=== PATIENT | male | born 1975 ===

== ENCOUNTER 2020-11-25 10:12 | Inpatient (IN) ==
--- NOTE | 2020-11-25 10:37 | Emergency Department Note ---
History of Present Illness General Chief complaint: Shortness of Breath/Dyspnea Stated complaint: SOB, COVID + Time Seen by Provider: 11/25/20 10:19 Source: patient History of Present Illness Provider complaint: Shortness of breath Onset (ago): day(s) Location: chest Severity: severe Pain Consistency: + intermittent Quality: + other (O2 saturation 83 at the present) Relieved By: + other (Oxygen) Associated symptoms: + cough, + fever/chills, + malaise and + shortness of breath; no chest pain, no headaches and no nausea/vomiting This is a 45-year-old male with a history of bladder cancer and recently diagnosed with COVID-19 presenting with shortness of breath. The patient has been short of breath for about 2 days. He was diagnosed with COVID-19 ap proximately 4 days ago. He developed a fever at that time. [facility] he was found to have an O2 saturation of 83% on room air and was subsequently sent here. His symptoms did improve with oxygen. He denies any associated chest discomfort or pain. He does state that he has had several months of swelling to the left leg without pain. He states that he did have an ultrasound of that leg at one point and was negative for DVT. He has never had a clot in his long as far as he knows. He does have a cough, loss of taste or smell, chills and diarrhea. He denies any abdominal pain or vomiting. 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 Home Medications Medication Instructions Recorded Confirmed Type acetaminophen-codeine 3 tab PO TID PRN 11/19/20 11/25/20 History [Tylenol-Codeine #3] acidophilus-pectin, citrus 2 cap PO BID 11/19/20 11/25/20 History [Acidophilus Probiotic] cholecalciferol (vitamin D3) 25 mcg PO DAILY 11/19/20 11/25/20 History [Vitamin D3] docusate sodium 250 mg PO DAILY 11/19/20 11/25/20 History ibuprofen 400 mg PO Q4H PRN 11/19/20 11/25/20 History loperamide [Imodium] See Rx Instructions .ROUTE 11/19/20 11/25/20 History .COMPLEX PRN MDD 16MG/DAY morphine 100 mg PO Q12H 11/19/20 11/25/20 History nitrofurantoin monohyd/m-cryst 100 mg PO DAILY 11/19/20 11/25/20 History [Macrobid] piperacillin-tazobactam [Zosyn] 4.5 g IV QID 11/19/20 11/25/20 History tamsulosin [Flomax] 0.4 mg PO HS 11/19/20 11/25/20 History zinc sulfate 220 mg PO BID 11/19/20 11/25/20 History Allergies Allergy/AdvReac Type Severity Reaction Status Date / Time No Known Allergies Allergy Verified 11/25/20 10:30 Past Med/Surg History Medical History (Updated 11/25/20 @ 13:52 by Sha Han MD) Bladder tumor UTI (urinary tract infection) Surgical History (Updated 11/25/20 @ 13:50 by Sha Han MD) History of bladder surgery Neobladder anastomosis Social History Smoking Status: Former smoker Feels Safe at Home: Yes Review of Systems See HPI for pertinent positives & negatives. and A total of 10 systems reviewed and were otherwise negative Physical Exam Vital Signs Vital Signs - 24 hr 11/25/20 10:05 11/25/20 10:30 11/25/20 10:46 Temperature 36.9 C Temperature Source Oral Pulse Rate 108 H 112 H 97 H Pulse Rate from SpO2 Sensor Pulse Rhythm Regular Respiratory Rate 26 H 22 26 H Respiratory Pattern Rapid/Shallow Blood Pressure 113/63 115/69 Blood Pressure Mean 79 75 Blood Pressure Position Sitting Pulse Oximetry 87 L 95 98 Oxygen Delivery Method Room Air Nasal Cannula Nasal Cannula Oxygen Flow Rate 4 Sepsis Recent Fever Within 48 Hours Yes Sepsis New/Unexplained Change in Mental Status No Sepsis Action Taken by Nursing Physician Notified Oxygen Flow Rate - Titration 4 Pulse Oximetry Post Tiitration 96 11/25/20 11:00 11/25/20 11:30 11/25/20 12:00 Temperature Temperature Source Pulse Rate 101 H 92 H 90 Pulse Rate from SpO2 Sensor 90 Pulse Rhythm Respiratory Rate 21 19 20 Respiratory Pattern Blood Pressure 100/65 107/67 110/69 Blood Pressure Mean 75 74 77 Blood Pressure Position Pulse Oximetry 97 97 98 Oxygen Delivery Method Nasal Cannula Oxygen Flow Rate 4 Sepsis Recent Fever Within 48 Hours Sepsis New/Unexplained Change in Mental Status Sepsis Action Taken by Nursing Oxygen Flow Rate - Titration Pulse Oximetry Post Tiitration 11/25/20 12:01 11/25/20 12:45 11/25/20 12:46 Temperature Temperature Source Pulse Rate 89 91 H 93 H Pulse Rate from SpO2 Sensor 89 93 H Pulse Rhythm Respiratory Rate 16 21 24 Respiratory Pattern Blood Pressure 115/72 Blood Pressure Mean 80 Blood Pressure Position Pulse Oximetry 97 92 97 Oxygen Delivery Method Oxygen Flow Rate Sepsis Recent Fever Within 48 Hours Sepsis New/Unexplained Change in Mental Status Sepsis Action Taken by Nursing Oxygen Flow Rate - Titration Pulse Oximetry Post Tiitration 11/25/20 13:00 11/25/20 13:01 11/25/20 13:30 Temperature Temperature Source Pulse Rate 95 H 88 89 Pulse Rate from SpO2 Sensor 95 H 88 88 Pulse Rhythm Respiratory Rate 23 23 19 Respiratory Pattern Blood Pressure 121/80 105/74 Blood Pressure Mean 88 89 Blood Pressure Position Pulse Oximetry 96 98 99 Oxygen Delivery Method Oxygen Flow Rate Sepsis Recent Fever Within 48 Hours Sepsis New/Unexplained Change in Mental Status Sepsis Action Taken by Nursing Oxygen Flow Rate - Titration Pulse Oximetry Post Tiitration 11/25/20 13:31 Temperature Temperature Source Pulse Rate 88 Pulse Rate from SpO2 Sensor 88 Pulse Rhythm Respiratory Rate 17 Respiratory Pattern Blood Pressure Blood Pressure Mean Blood Pressure Position Pulse Oximetry 99 Oxygen Delivery Method Oxygen Flow Rate Sepsis Recent Fever Within 48 Hours Sepsis New/Unexplained Change in Mental Status Sepsis Action Taken by Nursing Oxygen Flow Rate - Titration Pulse Oximetry Post Tiitration Constitutional: Vital signs reviewed. Hypoxemic. O2 saturation in the high 80s on room air. Improved to 94 on 2 L. Eyes: Pupils are equal round reactive to light. Conjunctiva are noninjected. ENT: Pharynx is clear without erythema or exudate. Mucous membranes are moist. Neck supple without meningeal signs. Respiratory: Clear to auscultation bilaterally. Breath sounds are equal bilaterally. Cardiovascular: Tachycardic. Heart rate 108 GI: Soft, nondistended and nontender. Bowel sounds are present. Musculoskeletal: No peripheral edema. No lower extremity tenderness. Integumentary: No cyanosis. or jaundice. Neurological: The patient is awake and alert. No focal deficits. Psychiatric: Normal affect. Not anxious appearing. Course Administered Medications Discontinued Medications Ioversol (Optiray 320 125ml) 120 ml IV ONCE ONE Stop: 11/25/20 12:24 Last Admin: 11/25/20 12:23 Dose: 120 ml Documented by: [id number] Medical Decision Making Differential Diagnosis DVT, PE, COVID-19, pneumonia, anemia Medical Records Attestation: I reviewed the patient's medical records. I did perform a limited focused review of portions of the patient's old chart on the electronic medical record. The patient was seen here November 19 for UTI symptoms. He was on IV Zosyn at the present. A CT scan revealed a colovesical fistula. The case was discussed with urology and recommendations were made for surgical repair at [facility]. He did have a venous Doppler of the left leg on September 23, 2020 which showed no evidence of DVT. Home Medications Current Medication List: was personally reviewed by me Laboratory Data Attestation: I reviewed the patient's lab results. Result diagrams: 11/25/20 10:54 11/25/20 10:54 Lab Results 11/25/20 11/25/20 11/25/20 Range/Units 10:54 10:54 10:54 WBC 11.77 H (4.8-10.8) K/uL RBC 3.37 L (4.7-6.1) M/uL Hgb 8.3 L (14.0-18.0) g/dL Hct 26.7 L (42-52) % MCV 79.2 L (80-100) fL MCH 24.6 L (25-34) pg MCHC 31.1 L (32-36) g/dL RDW Std Deviation 48.8 H (36.4-46.3) fL RDW Coeff of Chris 16.7 H (11.5-14.5) % Plt Count 499 H (130-400) K/uL MPV 8.2 (7.4-10.4) fL Immature Gran % (Auto) 0.3 % Neut % (Auto) 90.4 % Lymph % (Auto) 6.2 % [place] % (Auto) 2.7 % Eos % (Auto) 0.3 % Baso % (Auto) 0.1 % Neut # (Auto) 10.63 H (1.4-6.5) K/uL Lymph # (Auto) 0.73 L (1.2-3.4) K/uL [place] # (Auto) 0.32 (0.11-0.59) K/uL Eos # (Auto) 0.04 (0-0.5) K/uL Baso # (Auto) 0.01 (0-0.2) K/uL Immature Gran # (Auto) 0.04 H (0.00-0.02) K/uL PT 11.4 (9.0-12.0) Seconds INR 1.1 (0.9-1.1) APTT 38.6 H (21.0-31.0) Seconds PTT Ratio 1.4 D-Dimer 1300 H* (0-500) ug/L FEU Sodium 136 (136-145) mmol/L Potassium 3.4 L (3.5-5.1) mmol/L Chloride 108 H (98-107) mmol/L Carbon Dioxide 21 (21-32) mmol/L Anion Gap 8.0 (3-11) BUN 11 (7-18) mg/dl Creatinine 1.28 (0.6-1.4) mg/dl Est Cr Clr Drug Dosing 64.5 ml/min Est GFR ( Amer) 78.4 Est GFR (Non-Af Amer) 67.6 BUN/Creatinine Ratio 8.8 L (10-20) Glucose 104 H (70-99) mg/dl Calcium 8.5 (8.5-10.1) mg/dl Total Bilirubin 0.3 (0.2-1) mg/dl AST 49 H (15-37) U/L ALT 35 (12-78) U/L Alkaline Phosphatase 139 H (45-117) U/L Troponin I < 0.015 (0-0.045) ng/ml C-Reactive Protein 13.60 H (0-0.29) mg/dl Total Protein 6.3 L (6.4-8.2) gm/dl Albumin 1.8 L (3.4-5.0) gm/dl Globulin 4.5 H (2.5-4.0) gm/dl Albumin/Globulin Ratio 0.4 L (0.9-2) Imaging Data Radiologist's Impression: CT ANGIOGRAM OF THE CHEST CLINICAL HISTORY: Shortness of breath POSSIBLE PULMONARY EMBOLISM COMPARISON STUDY: Chest x-ray dated 11/19/2020 TECHNIQUE: Following the IV administration of 120 mL of Optiray-320, CT angiogram of the thorax was performed from the thoracic inlet to the lung bases utilizing the pulmonary embolus protocol. Images are reviewed in the axial, sagittal, and coronal planes. IV contrast was administered without complication. MIP imaging was performed. A dose lowering technique was utilized adhering to the principles of ALARA. CT DOSE: 327.60 mGy.cm FINDINGS: There is suspected hepatic steatosis. There are borderline enlarged mediastinal and hilar lymph nodes. There was no evidence of thoracic aortic dilatation. There were no pulmonary artery filling defects to indicate acute pulmonary embolism. No pleural effusions are visualized. There are extensive multifocal groundglass pulmonary opacities. The findings are indicative of a multifocal pneumonia. The findings are consistent with although not specific for Covid 19 pneumonia T9 sclerotic densities while nonspecific likely represent bone islands. IMPRESSION: 1. No evidence of acute pulmonary embolism 2. Multifocal groundglass pulmonary opacities. The findings are suspicious for Covid 19 pneumonia. ACT 112: Negative or not required by law. Electronically signed by: Felice Cruz M.D. 11/25/2020 12:47 PM Dictated: 11/25/20 1243 Transcribed: 11/25/20 1243 ECG Data Attestation: I personally reviewed and interpreted this ECG as follows: Indication: + SOB/dyspnea Rate (beats per minute): 108 Rhythm: + sinus tachycardia ECG Intervals/blocks: + Normal QT ECG ST segments: no ST elevation ECG Findings: no PVCs MDM Narrative I did evaluate the patient as noted above. The patient has a history of bladder cancer and COVID-19. He is presenting with hypoxemia. He was placed on supplemental oxygen using nasal cannula. IV access was established. I did place an order for continuous cardiac monitoring. The monitor showed sinus tachycardia at a rate of 110 bpm. I did order and personally review the malena ent's 12-lead EKG as described above. He has sinus tachycardia without any evidence of acute ischemia. I did order a urine analysis. I did order and review the patient's blood work as noted in the electronic medical record. His white count is 11.7. He has anemia with a hemoglobin of 8.3. His last hemoglobin was 8.8. His D-dimer is 1300. Potassium is 3.4. Troponin is negative. C-reactive protein is 13.6. Given his history of bladder cancer as well as recent diagnosis of COVID-19 with hypoxemia I was concerned about pulmonary embolism. I did order a CT angiogram of the chest. I did review the images myself as well as the radiology report as described above. There is no evidence of pulmonary embolism but the patient does have multifocal pneumonia. The patient was informed of his test results. He is able to maintain his O2 saturations on 4 L of nasal cannula. I did discuss case with the hospitalist and case management rn. He was given Decadron 6 mg IV. Impression & Plan Hypoxemia, Anemia, Pneumonia due to 2019 novel coronavirus Discharge Plan Visit Data Chief Complaint: Shortness of Breath/Dyspnea Stated Complaint: SOB, COVID + ED Provider: Zeyad Gallegos Discharge Problem: Hypoxemia, Anemia, Pneumonia due to 2019 novel coronavirus Patient Disposition: Being Evaluated by Hospitalist
[2020-11-25 11:29] LABS: Hematocrit (blood only) 26.7 % (42-52); Hemoglobin 8.3 g/dL (14.0-18.0); Mean Corpuscular Hemoglobin 24.6 pg (25-34); Mean Corpuscular Hgb Conc 31.1 g/dL (32-36); Mean Corpuscular Volume 79.2 fL (80-100); Mean Platelet Volume 8.2 fL (7.4-10.4); Platelet Count 499 K/uL (130-400); RDW Coefficient of Variation 16.7 % (11.5-14.5); RDW Standard Deviation 48.8 fL (36.4-46.3); Red Blood Count 3.37 M/uL (4.7-6.1); White Blood Count 11.77 K/uL (4.8-10.8)
[2020-11-25 11:40] LABS: INR 1.1 (0.9-1.1); Partial Thromboplastin Ratio 1.4; Partial Thromboplastin Time 38.6 Seconds (21.0-31.0); Prothrombin Time 11.4 Seconds (9.0-12.0)
[2020-11-25 11:41] LABS: D Dimer 1300 ug/L FEU (0-500)
[2020-11-25 11:48] LABS: Alanine Aminotransferase 35 U/L (12-78); Albumin Level 1.8 gm/dl (3.4-5.0); Aspartate Aminotransferase 49 U/L (15-37); BUN Creatinine Ratio 8.8 (10-20); Blood Urea Nitrogen 11 mg/dl (7-18); Calcium 8.5 mg/dl (8.5-10.1); Carbon Dioxide 21 mmol/L (21-32); Chloride 108 mmol/L (98-107); Creatinine Clr Calc Pharmacy 64.5 ml/min; Est GFR (African American) 78.4; Est GFR (Non-African American) 67.6; Glucose 104 mg/dl (70-99); Potassium 3.4 mmol/L (3.5-5.1); Sodium 136 mmol/L (136-145)
[2020-11-25 11:51] LABS: Basophils # (auto) 0.01 K/uL (0-0.2); Basophils % (auto) 0.1 %; Eosinophils # (auto) 0.04 K/uL (0-0.5); Eosinophils % (auto) 0.3 %; Immature Granulocytes # (auto) 0.04 K/uL (0.00-0.02); Immature Granulocytes % (auto) 0.3 %; Lymphocytes # (auto) 0.73 K/uL (1.2-3.4); Lymphocytes % (auto) 6.2 %; Monocytes # (auto) 0.32 K/uL (0.11-0.59); Monocytes % (auto) 2.7 %; Neutrophils # (auto) 10.63 K/uL (1.4-6.5); Neutrophils % (auto) 90.4 %
[2020-11-25 11:52] LABS: Albumin Globulin Ratio 0.4 (0.9-2); Alkaline Phosphatase 139 U/L (45-117); Bilirubin,Total 0.3 mg/dl (0.2-1); Globulin 4.5 gm/dl (2.5-4.0); Total Protein 6.3 gm/dl (6.4-8.2); Troponin I < 0.015 ng/ml (0-0.045)
[2020-11-25] MEDS ORDERED: OPTIRAY 320 125ml IV ONE (12:23)
--- NOTE | 2020-11-25 12:48 | CT Scan Report ---
CT ANGIOGRAM OF THE CHEST CLINICAL HISTORY: Shortness of breath POSSIBLE PULMONARY EMBOLISM COMPARISON STUDY: Chest x-ray dated 11/19/2020 TECHNIQUE: Following the IV administration of 120 mL of Optiray-320, CT angiogram of the thorax was p erformed from the thoracic inlet to the lung bases utilizing the pulmonary embolus protocol. Images a re reviewed in the axial, sagittal, and coronal planes. IV contrast was administered without complica tion. MIP imaging was performed. A dose lowering technique was utilized adhering to the principles o f ALARA. CT DOSE: 327.60 mGy.cm FINDINGS: There is suspected hepatic steatosis. There are borderline enlarged mediastinal and hilar lymph nodes. There was no evidence of thoracic aortic dilatation. There were no pulmonary artery filling defects to indicate acute pulmonary embolism. No pleural effusions are visualized. There are extensive multifocal groundglass pulmonary opacities. The findings are indicative of a mult ifocal pneumonia. The findings are consistent with although not specific for Covid 19 pneumonia T9 sclerotic densities while nonspecific likely represent bone islands. IMPRESSION: 1. No evidence of acute pulmonary embolism 2. Multifocal groundglass pulmonary opacities. The findings are suspicious for Covid 19 pneumonia. ACT 112: Negative or not required by law. Electronically signed by: Felice Cruz M.D. 11/25/2020 12:47 PM
[2020-11-25] MEDS ORDERED: DEXAMETHASONE SOD INJ 10 MG/ML VIAL IV ONE (12:51)
--- NOTE | 2020-11-25 13:41 | History & Physical Report ---
Date of Service November 25, 2020 Assessment & Plan (1) Pneumonia due to COVID-19 virus: Dexamethasone 6mg IV daily COVID isolation precautions (2) Hypoxia: Aim O2 sats > 94% (3) Williams-vesical fistula: Recently seen on imaging from 11/19. Will consult urology to question need for ongoing antibiotics and straight catheterization vs. da silva given neobladder. Doubtful he would be able to have surgery in setting of COVID-19 diagnosis. (4) UTI (urinary tract infection): Follow up blood cultures Diagnosed with pseudomonas and Enterococcus faecalis on November 02 - awaiting fax from [facility] for sensitivities. Started Zosyn on November 12 - I suspect that can be discontinued given ongoing duration however in setting of colovesicular fistula will consult uro logy for advice regarding this. (5) Bladder tumor: s/p neobladder formation - patient unclear when but suspect 2019 (6) Hydronephrosis, right: Consult urology as above. Unclear if acute or chronic (present on imaging from 11/19), suspect from neobladder formation. (7) Microcytic anemia: Iron studies with CBC in AM. (8) Constipation: Avoid constipation with docusate as per home med. (9) DVT prophylaxis: SCDs. Chemical prophylaxis deferred pending urology review with hematuria and stability of microcytic anemia. History of Present Illness Primary Care Provider: LIN Rudolph Harjinder Corley is a 45-year-old male who presents to the ER from [facility] due to worsening shortness of breath and hypoxia. He was recently diagnosed on with COVID-19 on November 21, [address] abdo/pelvis imaging on Nov 19 showed some bibasal viral pneumonia changes although CXR was relatively unremarkable. He reports fever, chills, shortness of breath, diarrhea (chronic) and fatigue. He denies any nasal congestion, nausea/vomiting, headache, myalgias, abdominal or chest pain. 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 He has a history of bladder cancer with s/p neobladder formation performed at [facility]. The patient reports developing urinary retention since January requiring intermittent catheterization and he has been performing straight caths approximately x3/day s then. He denies being seen by a urologist after this diagnosis but is somewhat confused at this time. Both the [facility] and patient report a history of recurrent multi-resistant UTIs but I am unclear on what symptoms he was having at the time of these diagnoses. He was on cefepime when here for an ER visit for an unrelated matter in September and has recently been on Zosyn 4.5g QID since November 13 after a urine culture on November 02 grew pseudomonas aeruginosa and enterococcus faecalis. 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 His care was discussed with urology at that time but decided on discharge with close follow up with his urologist in [place]. The patient is unaware of any upcoming appointment for this. In the ER CTA was concerning for multifocal ground glass opacities and subsequent SARS-COV-2 testing was positive. He was referred to medicine for ongoing admission and ongoing management of COVID-19 pneumonia with hypoxia. Allergies Allergy/AdvReac Type Severity Reaction Status Date / Time No Known Allergies Allergy Verified 11/25/20 10:30 Home Medications Medication Instructions Recorded Confirmed Type acetaminophen-codeine 3 tab PO TID PRN 11/19/20 11/25/20 History [Tylenol-Codeine #3] acidophilus-pectin, citrus 2 cap PO BID 11/19/20 11/25/20 History [Acidophilus Probiotic] cholecalciferol (vitamin D3) 25 mcg PO DAILY 11/19/20 11/25/20 History [Vitamin D3] docusate sodium 250 mg PO DAILY 11/19/20 11/25/20 History ibuprofen 400 mg PO Q4H PRN 11/19/20 11/25/20 History loperamide [Imodium] See Rx Instructions .ROUTE 11/19/20 11/25/20 History .COMPLEX PRN MDD 16MG/DAY morphine 100 mg PO Q12H 11/19/20 11/25/20 History nitrofurantoin monohyd/m-cryst 100 mg PO DAILY 11/19/20 11/25/20 History [Macrobid] piperacillin-tazobactam [Zosyn] 4.5 g IV QID 11/19/20 11/25/20 History tamsulosin [Flomax] 0.4 mg PO HS 11/19/20 11/25/20 History zinc sulfate 220 mg PO BID 11/19/20 11/25/20 History Past Med/Surg History Medical History (Updated 11/26/20 @ 08:18 by Sha Han MD) Bladder tumor UTI (urinary tract infection) Surgical History (Updated 11/25/20 @ 13:50 by Sha Han MD) History of bladder surgery Neobladder anastomosis Social History Smoking Status: Former smoker Second Hand Exposure: No; Do You Dip or Chew Tobacco: No; Tobacco Cessation Education Requested by Patient: No Hx Alcohol Use: No Hx Substance Use: No Preferred Language: Greek Communication Ability: Effective Film Reproducer Required: No Beliefs That Will Affect Care: None Current Living Situation: Other Current Living Situation Comment: patient is inmate at [facility] Other Information That Helps Us Care for You: No Feels Safe at Home: Yes Safety Concerns: Feels Safe At This Time Assistive Devices: None Review of Systems Review of Systems: All systems reviewed & are unremarkable except as noted in HPI & below Physical Exam Constitutional: well developed and well nourished; no acute distress Eyes: PERRL, conjunctivae normal, anicteric sclerae Respiratory: normal respiratory effort and able to speak in complete sentences; no respiratory distress, no labored breathing and no cough Auscult ation: + rhonchi (posteriorly); no diminished lung sounds, no crackles and no wheezes Cardiovascular: RRR, no murmur, no edema Gastrointestinal (Abdomen): normal bowel sounds, soft, nontender, no hepatosplenomegaly Musculoskeletal: no cyanosis or clubbing, extremities motor strength 5/5 Skin: no rashes, warm and dry Neurologic: moves all extremities and awake; not confused Psychiatric: A+Ox3, euthymic affect Genitourinary: no CVA tenderness Results & Data Results & Data ([facility]) Vital Signs (Past 12 Hours) Vital Signs Temp Pulse Resp BP Pulse Ox 11/25/20 13:31 88 17 99 11/25/20 13:30 89 19 105/74 99 11/25/20 13:01 88 23 98 11/25/20 13:00 95 H 23 121/80 96 11/25/20 12:46 93 H 24 97 11/25/20 12:45 91 H 21 115/72 92 01/10/21 12:01 89 16 97 11/25/20 12:00 90 20 110/69 98 11/25/20 11:30 92 H 19 107/67 97 11/25/20 11:00 101 H 21 100/65 97 11/25/20 10:46 97 H 26 H 98 11/25/20 10:30 112 H 22 115/69 95 11/25/20 10:05 36.9 C 108 H 26 H 113/[address] ANGIOGRAM OF THE CHEST IMPRESSION: 1. No evidence of acute pulmonary embolism 2. Multifocal groundglass pulmonary opacities. The findings are suspicious for Covid 19 pneumonia. Medications Administered ER medications given: Dexamethasone 6mg IV ECG Indication: SOB/dyspnea Rate (beats per minute): 108 Rhythm: sinus tachycardia Findings: + other (poor R wave progression) Change: no significant change Code Status & VTE Plan VTE Prophylaxis Plan VTE Prophylaxis will be ordered: Yes PG Care Time/CCT Total # of Minutes Spent Total Time Spent with Patient: Total time spent is greater than 50% in coordination of care (as documented) at patient's floor/unit and/or counseling patient: Coding Level of Care Code 46280 Initial Inpt Care Lvl 3 Diagnoses Pneumonia due to COVID-19 virus U07.1; J12.82 Hypoxia R09.02 Williams-vesical fistula N32.1 UTI (urinary tract infection) N39.0 Bladder tumor D49.4 Hydronephrosis, right N13.30 Microcytic anemia D50.9 Constipation K59.00 DVT prophylaxis Z29.9
[2020-11-25 15:03] LABS: Ferritin 774.9 ng/ml (8-388)
[2020-11-25] MEDS ORDERED: DEXAMETHASONE SOD INJ 10 MG/ML VIAL ONE (15:32)
[2020-11-25] MEDS ORDERED: PIPERACILLIN/TAZOBACTAM 4.5 GM in DEXTROSE 5% 100 ML IV SCH (15:49)
[2020-11-25] MEDS ORDERED: ONDANSETRON INJ 2 MG/ML 2 ML VIAL IV PRN (15:49)
[2020-11-25] MEDS ORDERED: ACETAMINOPHEN 325 MG TAB PO PRN (15:49)
[2020-11-25] MEDS ORDERED: POLYETHYLENE (MIRALAX) 17 GM PACK PO PRN (15:49)
[2020-11-25] MEDS ORDERED: PIPERACILL/TAZOBAC CONSULT ACTIVE PRN (15:49)
[2020-11-25] MEDS ORDERED: ALUMINUM/MAGNESIUM SUSP 30 ML UDC PO PRN (15:49)
[2020-11-25] MEDS ORDERED: PIPERACILLIN/TAZOBACTAM 3.375 GM in DEXTROSE 5% 100 ML IV ONE (16:15)
[2020-11-25] MEDS: ADVANCED PROBIOTIC 1250 MG CAPSULE PO SCH (17:01)
--- NOTE | 2020-11-25 17:03 | Electrocardiogram Report ---
Test Reason : Blood Pressure : / mmHG Vent. Rate : 108 BPM Atrial Rate : 108 BPM P-R Int : 138 ms QRS Dur : 074 ms QT Int : 328 ms P-R-T Axes : 032 -07 018 degrees QTc Int : 439 ms Poor data quality, interpretation may be adversely affected Sinus tachycardia Possible Left atrial enlargement Poor R wave progression, consider anterior [place] vs. lead placement vs. LVH Abnormal ECG No previous ECGs available Confirmed by Balwinder Mata ([id number]) on 11/25/2020 5:02:31 PM Referred By: Klaudia SCI Confirmed By:Pete Mata
[2020-11-25] MEDS: TAMSULOSIN HCL 0.4 MG CAP PO SCH (21:03)
[2020-11-25] MEDS: ZINC SULFATE 220 MG CAPSULE PO SCH (21:03)
[2020-11-25] MEDS: PIPERACILLIN/TAZOBACTAM 3.375 GM in DEXTROSE 5% 100 ML IV SCH (21:03)
[2020-11-25] MEDS: MoRPHine SULFATE CR 100 MG TABCR PO SCH (22:13)
[2020-11-26] MEDS: PIPERACILLIN/TAZOBACTAM 3.375 GM in DEXTROSE 5% 100 ML IV SCH ×3 (05:36→21:38)
[2020-11-26 06:30] LABS: Basophils # (auto) 0.01 K/uL (0-0.2); Basophils % (auto) 0.1 %; Hematocrit (blood only) 29.6 % (42-52); Hemoglobin 9.2 g/dL (14.0-18.0); Immature Granulocytes # (auto) 0.04 K/uL (0.00-0.02); Immature Granulocytes % (auto) 0.4 %; Lymphocytes # (auto) 0.88 K/uL (1.2-3.4); Lymphocytes % (auto) 8.6 %; Mean Corpuscular Hemoglobin 24.7 pg (25-34); Mean Corpuscular Hgb Conc 31.1 g/dL (32-36); Mean Corpuscular Volume 79.6 fL (80-100); Mean Platelet Volume 8.3 fL (7.4-10.4); Monocytes # (auto) 0.36 K/uL (0.11-0.59); Monocytes % (auto) 3.5 %; Neutrophils # (auto) 8.93 K/uL (1.4-6.5); Neutrophils % (auto) 87.4 %; Platelet Count 572 K/uL (130-400); RDW Coefficient of Variation 16.8 % (11.5-14.5); RDW Standard Deviation 49.2 fL (36.4-46.3); Red Blood Count 3.72 M/uL (4.7-6.1); White Blood Count 10.22 K/uL (4.8-10.8)
[2020-11-26 07:04] LABS: BUN Creatinine Ratio 13.6 (10-20); Creatinine Clr Calc Pharmacy 71.2 ml/min; Est GFR (African American) 88.3; Est GFR (Non-African American) 76.2; Potassium 4.1 mmol/L (3.5-5.1)
--- NOTE | 2020-11-26 08:02 | Hospitalist Progress Note ---
Date of Service November 26, 2020 Assessment & Plan (1) Pneumonia due to COVID-19 virus: Pt with actue hypoxic respiratory failure, acute changes on CTA consistent with covid pneumonia, will start remdesivir and is on decadron, support with oxygen at this time (2) UTI (urinary tract infection): Pt with a history of colovesicular fistulae and previous infection with MDR pseudomonas and enterococcus diagonsed in october, (3) [place]-vesical fistula: history of bladder cancer diagnosed in 2018 s/p left nephrectomy, cystectomy/prostatectomy with neobladder,performed in [facility] (2018). CT scan 11/19/20 cannot exclude fistulae, urology consult recommend da silva, continue antibiotics and eventual return to [facility] for surgical correction (4) Bladder tumor: CT abd pelvis 11/20/20 MPRESSION: 1. Rectosigmoid wall thickening with a fistula communicating with the patient's neobladder. There is stool present within the neobladder 2. Moderate right-sided hydronephrosis and hydroureter. Distal ureteral narrowing at the level of the ureteral neobladder anastomosis (5) Microcytic anemia: pt hgb is 9.2, remains microcytic, iron low and sat low, will give iron (6) Hydronephrosis, right: given stable renal function urology is not inclined to intervene at this point, will have a da silva to eliminate obstructive uropathy especially with colonic debris in the bladder (7) Constipation: initiate cathartic (8) DVT prophylaxis: lovenox Admission and Anticipated Discharge Date Admission Date: November 25, 2020 Subjective 45-year-old male with a history of bladder cancer and recently diagnosed with COVID-19 presenting with shortness of breath. The patient has been short of breath for about 2 days. He was diagnosed with COVID-19 approximately 4 days ago. He developed a fever at that time. Today at the residential where he resides he was found to have an O2 saturation of 83% on room air and was subsequently sent here. His symptoms did improve with oxygen. He denies any associated chest discomfort or pain. He does state that he has had several months of swelling to the left leg without pain. He states that he did have an ultrasound of that leg at one point and was negative for DVT. He has never had a clot in his long as far as he knows. He does have a cough, loss of taste or smell, chills and diarrhea. He denies any abdominal pain or vomiting. 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 Results & Data Results & Data ([facility]) Vital Signs (Past 12 Hours) Vital Signs Temp Pulse Resp BP Pulse Ox 11/26/20 07:24 97.7 F 91 H 20 118/72 98 11/25/20 23:07 98.1 F 92 H 16 110/69 97 PG Care Time/CCT Total # of Minutes Spent Total Time Spent with Patient: Total time spent is greater than 50% in coordination of care (as documented) at patient's floor/unit and/or counseling patient: Coding Level of Care Code 43788 Subseq Hosp Care Lvl 3 Diagnoses Pneumonia due to COVID-19 virus U07.1; J12.82 UTI (urinary tract infection) N39.0 [place]-vesical fistula N32.1 Bladder tumor D49.4 Microcytic anemia D50.9 Hydronephrosis, right N13.30 Constipation K59.00 DVT prophylaxis Z29.9
--- NOTE | 2020-11-26 08:04 | Urology Consultation ---
Date of Consultation November 26, 2020 Assessment & Plan (1) [place]-vesical fistula: (2) Hydronephrosis, right: (3) UTI (urinary tract infection): (4) Bladder tumor: 45 year-old male patient, with multiple comorbidities, admitted with shortness of breath and hypoxia secondary to diagnosed COVID-19 infection and UTI, found to have right-sided hydroureteronephrosis and colovesicular/neobladder fistula. -Patient with complex history including bladder cancer status post cystectomy, left nephrectomy, prostatectomy, and neobladder formation. -Plan of care reviewed with Dr. Malik. -Patient afebrile. -CT reviewed - there does appear to be a colovesicular/neobladder fistula with large amount of air and debris within neobladder. -Labs reviewed, creatinine and white count stable. -Recommend da silva catheter to allow max bladder drainage, irrigate PRN. -Continue supportive care and antibiotic therapy for complicated UTI, blood cultures pending. -Will ultimately need reconstructive urology/colorectal surgery evaluation for colovesical fistula repair at tertiary center. -Transfer acutely if febrile, decline in kidney function, or acute changes in clinical status. -Will continue to follow peripherally. Thank you for allowing us to participate in the acute care of Mr. Corley. Please contact us with additional questions, concerns or changes in patient status. History of Present Illness Reason for Consultation: right hydronephrosis, neobladder, colovesicular fistula Attending Physician: Zeyad Bowie MD History of Present Illness 45 year-old male patient, with history of bladder cancer diagnosed in 2018 s/p left nephrectomy, cystectomy/prostatectomy with neobladder, UTI, anemia, consti pation and recently diagnosed COVID-19, presented to the hospital from [facility] due to worsening shortness of breath and hypoxia. Patient diagnosed with COVID-19 on November 21, 2020. Patient admitted 11/25/20 to hospital service. Past medical and surgical history reviewed. Per chart review, does have history of prostatectomy, left nephrectomy, cystectomy with neobladder performed in [facility] (2018). Denies history of radiation but notes he did have chemotherapy prior to surgery. Patient was also recently seen and evaluated November 19, 2020 at [facility] for UTI symptoms. He was started on 10 day course of Zosyn 12/29/20 prior to this. Records reveal patient had urine culture 11/02 with multi-drug resistant Pseudomonas and Enterococcus Faecalis. Urology consulted for right-sided hydronephrosis, neobladder, and colovesicular fistula. Chart review: Afebrile. Wbc 10.22 Hgb 9.2 Creatinine 1.16 Urine culture 11/02 not available for review. Urine culture 11/19 with three types of organisms present, all moderate counts. Blood cultures 11/25 pending. Patient currently on IV Zosyn. Imaging: CT abd/pelvis with IV contrast 11/19/20 - IMPRESSION: 1. Multifocal groundglass consolidation at the lung bases is typical for an infectious pneumonitis 2. Postoperative change is consistent with cystectomy and prostatectomy with neobladder formation. There has also been left nephrectomy. 3. There is significant wall thickening and hyperemia involving the rectosigmoid colon with surrounding inflammation. There are thick-walled and inflamed loops of adjacent small bowel in the pelvis. The neobladder also appears thick walled, but is not well delineated. Some of these findings may be treatment-related if there has been a history of pelvic radiation. Correlate clinically for evidence of an infectious process. 4. The neobladder is partially decompressed end is in close proximity to the adjacent bowel loops. Fistula formation would be impossible to exclude between the neobladder and the adjacent small bowel and/or the colon. 5. Moderate constipation. No bowel obstruction is seen. 6. There is moderate to severe right hydroureteronephrosis, likely related to the inflammatory process in the pelvis. 7. Hepatomegaly and hepatic steatosis. 8. Additional findings in report. CT abd/pelvis without contrast 11/20/20 - IMPRESSION: 1. Rectosigmoid wall thickening with a fistula communicating with the patient's neobladder. There is stool present within the neobladder. 2. Moderate right-sided hydronephrosis and hydroureter. Distal ureteral narrowing at the level of the ureteral neobladder anastomosis. Patient examined, guards at bedside. Patient reports he is feeling better since hospital admission. Breathing has improved overall, remains on oxygen via nasal cannula. In regards to urination status, he reports his urine has been brown in color. Does have occasional dysuria and hematuria. Does have history of CIC but states he is able to also void spontaneously. Reports he has had da silva catheters in the past but states they clog very easily. Denies frequency/urgency. Denies bladder pain or pressure. Denies flank pain. Denies fevers or chills. Has been eating a regular diet without nausea or vomiting. Currently on IV antibiotic therapy, Zoxyn. No known pertinent family history. Overall, he has had some clinical improvement. Denies additional urologic concerns today. Allergies Allergy/AdvReac Type Severity Reaction Status Date / Time No Known Allergies Allergy Verified 11/25/20 10:30 Home Medications Medication Instructions Recorded Confirmed Type acetaminophen-codeine 3 tab PO TID PRN 11/19/20 11/25/20 History [Tylenol-Codeine #3] acidophilus-pectin, citrus 2 cap PO BID 11/19/20 11/25/20 History [Acidophilus Probiotic] cholecalciferol (vitamin D3) 25 mcg PO DAILY 11/19/20 11/25/20 History [Vitamin D3] docusate sodium 250 mg PO DAILY 11/19/20 11/25/20 History ibuprofen 400 mg PO Q4H PRN 11/19/20 11/25/20 History loperamide [Imodium] See Rx Instructions .ROUTE 11/19/20 11/25/20 History .COMPLEX PRN MDD 16MG/DAY morphine 100 mg PO Q12H 11/19/20 11/25/20 History nitrofurantoin monohyd/m-cryst 100 mg PO DAILY 11/19/20 11/25/20 History [Macrobid] piperacillin-tazobactam [Zosyn] 4.5 g IV QID 11/19/20 11/25/20 History tamsulosin [Flomax] 0.4 mg PO HS 11/19/20 11/25/20 History zinc sulfate 220 mg PO BID 11/19/20 11/25/20 History Patient History Medical History Bladder tumor UTI (urinary tract infection) Surgical History History of bladder surgery Neobladder anastomosis Social History Smoking Status: Former smoker Second Hand Exposure: No; Do You Dip or Chew Tobacco: No; Tobacco Cessation Education Requested by Patient: No Hx Alcohol Use: No Hx Substance Use: No Preferred Language: Mongolian Communication Ability: Effective Van Driver Helper Required: No Beliefs That Will Affect Care: None Current Living Situation: Other Current Living Situation Comment: patient is inmate at [facility] Other Information That Helps Us Care for You: No Feels Safe at Home: Yes Safety Concerns: Feels Safe At This Time Assistive Devices: None Review of Systems Constitutional: as per Subjective / HPI; no fever and no chills Eyes: no problem reported Ear, Nose, Mouth, Throat: no dizziness Respiratory: as per Subjective / HPI Cardiovascular: no chest pain Gastrointestinal: as per Subjective / HPI Genitourinary: + as per Subjective / HPI Musculoskeletal: as per Subjective / HPI; no back pain Neurologic: no dizziness Endocrine: no fatigue Hematologic / Lymphatic: no easy bleeding and no easy bruising Physical Exam Constitutional: well developed, cooperative and comfortable; no acute distress and not ill appearing ENMT: Ears: no external ear abnormality Nose: no external nose abnormality Neck: normal visual inspection and trachea midline Respiratory: normal respiratory effort and able to speak in complete sentences; no respiratory distress and no audible wheezes Cardiovascular: Extremities: no calf tenderness and no edema Gastrointestinal (Abdomen): Inspection/Auscultation: abdomen normal to inspection; abdomen not distended Percussion/Palpation: abdomen soft; abdomen nontender and no guarding Musculoskeletal: Moves all extremities without difficulty. Skin: No visible rashes, lesions, or wounds noted. Neurologic: moves all extremities and awake Psychiatric: Orientation: alert, oriented x 3 and cooperative Affect: euthymic affect Genitourinary: no CVA tenderness Results & Data ([facility]) Vital Signs (Past 12 Hours) Vital Signs Temp Pulse Resp BP Pulse Ox 11/26/20 07:24 36.5 C 91 H 20 118/72 98 11/25/20 23:07 36.7 C 92 H 16 110/69 97 PG Care Time/CCT Total # of Minutes Spent Total Time Spent with Patient: Total time spent is greater than 50% in coordination of care (as documented) at patient's floor/unit and/or counseling patient: Coding Level of Care Code 45170 Inpt Consult Level 4 Diagnoses [place]-vesical fistula N32.1 Hydronephrosis, right N13.30 UTI (urinary tract infection) N39.0 Bladder tumor D49.4
[2020-11-26] MEDS: MoRPHine SULFATE CR 100 MG TABCR PO SCH ×2 (08:25→21:38)
[2020-11-26] MEDS: dexAMETHasone 6 MG in SYRINGE 0 ML IV SCH (08:25)
[2020-11-26] MEDS: NITROFURANTOIN MONOHYDRATE 100 MG CAP PO SCH (08:25)
[2020-11-26] MEDS: ADVANCED PROBIOTIC 1250 MG CAPSULE PO SCH (08:26)
[2020-11-26] MEDS: DOCUSATE CALCIUM 240 MG CAPSULE PO SCH (08:26)
[2020-11-26] MEDS: ZINC SULFATE 220 MG CAPSULE PO SCH ×2 (08:26→21:38)
[2020-11-26] MEDS ORDERED: REMDESIVIR 200 MG in SODIUM CHLORIDE 0.9% 210 ML IV ONE (08:30)
[2020-11-26] MEDS ORDERED: IRON SUCROSE 200 MG in 0.9 % SODIUM CHLORIDE 100 ML IV ONE (09:00)
[2020-11-26] MEDS: SODIUM CHLORIDE 0.9% 10ML FLUSH IV SCH (11:49)
[2020-11-26] MEDS: TAMSULOSIN HCL 0.4 MG CAP PO SCH (21:38)
[2020-11-27] MEDS: PIPERACILLIN/TAZOBACTAM 3.375 GM in DEXTROSE 5% 100 ML IV SCH ×3 (06:08→22:52)
[2020-11-27] MEDS: DOCUSATE CALCIUM 240 MG CAPSULE PO SCH (08:28)
[2020-11-27] MEDS: NITROFURANTOIN MONOHYDRATE 100 MG CAP PO SCH (08:28)
[2020-11-27] MEDS: MoRPHine SULFATE CR 100 MG TABCR PO SCH ×2 (08:29→21:45)
[2020-11-27] MEDS: ZINC SULFATE 220 MG CAPSULE PO SCH ×2 (08:29→21:45)
[2020-11-27] MEDS: ADVANCED PROBIOTIC 1250 MG CAPSULE PO SCH (08:29)
[2020-11-27] MEDS: dexAMETHasone 6 MG in SYRINGE 0 ML IV SCH (08:29)
[2020-11-27] MEDS: ENOXAPARIN INJ 40 MG/0.4 ML SYR SQ SCH (08:29)
--- NOTE | 2020-11-27 08:56 | Hospitalist Progress Note ---
Date of Service November 27, 2020 Assessment & Plan (1) Pneumonia due to COVID-19 virus: Dexamethasone 6mg IV daily remdesivir started COVID isolation precautions Oxygen requirements are modest however the patient's pulmonary examination has progressed and he sounds slightly worse on 11/27 dated 11/26 (2) UTI (urinary tract infection): Follow up blood cultures, urine culture Diagnosed with pseudomonas and Enterococcus faecalis on November 02 - Started Zosyn on November 12 - in setting of colovesicular fistula, consult urology advises return to [facility] for surgical correction, urine cultures with pinpoint growth reintubating and not finalized as of 11/27/2020 (3) [place]-vesical fistula: history of bladder cancer diagnosed in 2018 s/p left nephrectomy, cystectomy/prostatectomy with neobladder,performed in [facility] (2018). CT scan 11/19/20 cannot exclude fistulae, urology consult recommend da silva, continue antibiotics and eventual return to [facility] for surgical correction (4) Bladder tumor: CT abd pelvis 11/20/20 MPRESSION: 1. Rectosigmoid wall thickening with a fistula communicating with the patient's neobladder. There is stool present within the neobladder 2. Moderate right-sided hydronephrosis and hydroureter. Distal ureteral narrowing at the level of the ureteral neobladder anastomosis (5) Microcytic anemia: pt hgb is 9.2, remains microcytic, iron low and sat low, status post 1 dose benefit (6) Hydronephrosis, right: given stable renal function urology is not inclined to intervene at this point, will have a da silva to eliminate obstructive uropathy especially with colonic debris in the bladder (7) Constipation: initiated cathartic (8) DVT prophylaxis: lovenox Admission and Anticipated Discharge Date Admission Date: November 25, 2020 Subjective 45-year-old male with a history of bladder cancer and recently diagnosed with COVID-19 presenting with shortness of breath. The patient has been short of breath for about 2 days. He was diagnosed with COVID-19 approximately 4 days ago. He developed a fever at that time. [facility] he was found to have an O2 saturation of 83% on room air and was subsequently sent here. His symptoms did improve with oxygen. He denies any associated chest discomfort or pain. He does state that he has had several months of swelling to the left leg without pain. He states that he did have an ultrasound of that leg at one point and was negative for DVT. He has never had a clot in his long as far as he knows. He does have a cough, loss of taste or smell, chills and diarrhea. He denies any abdominal pain or vomiting. 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 Review of Systems Review of Systems: Mild distress and fatigue no headache, blurry or double vision no speech or swallowing issues no chest pain, pressure or palpitations Worse than baseline shortness of breath, nonproductive cough no abdominal pain, nausea or vomiting, diarrhea or constipation Urinary hesitancy stuttering and some air when he urinates change in the color of his urine to a dark in color no focal joint pain or swelling no back pain, CVA tenderness or radicular pain no bruising, bleeding or rashes no focal signs of weakness or numbness or altered sensation no complaints of anxiety or depression.. Physical Exam Physical Exam: The patient appeared well nourished and normally developed. Vital signs as documented. Head exam is normocephalic atraumatic no scleral icterus Neck is without JVD, thyromegaly, or carotid bruits. Lungs are coarse bibasilar rales consistent with Covid pneumonia Cardiac exam, Rhythm is regular.. No murmurs, rubs or gallops. Abdominal exam reveals normal bowel sounds, soft non tender, no masses Extremities are nonedematous and both pedal pulses are present Neurologic exam is alert and oriented, no focal loss of strength or sensation Skin is without bruises or rashes Psychologically is without concerns for anxiety or depression. Results & Data Results & Data ([facility]) Vital Signs (Past 12 Hours) Vital Signs Temp Pulse Resp BP Pulse Ox 11/27/20 07:17 97.5 F L 97 H 20 116/73 98 11/26/20 23:48 98.1 F 96 H 18 130/83 95 PG Care Time/CCT Total # of Minutes Spent Total Time Spent with Patient: Total time spent is greater than 50% in coordination of care (as documented) at patient's floor/unit and/or counseling patient: Coding Level of Care Code 46016 Subseq Hosp Care Lvl 3 Diagnoses Pneumonia due to COVID-19 virus U07.1; J12.82 UTI (urinary tract infection) N39.0 [place]-vesical fistula N32.1 Bladder tumor D49.4 Microcytic anemia D50.9 Hydronephrosis, right N13.30 Constipation K59.00 DVT prophylaxis Z29.9
[2020-11-27] MEDS: REMDESIVIR 100 MG in SODIUM CHLORIDE 0.9% 230 ML IV SCH (11:41)
[2020-11-27] MEDS: SODIUM CHLORIDE 0.9% 10ML FLUSH IV SCH (12:38)
[2020-11-27] MEDS: TAMSULOSIN HCL 0.4 MG CAP PO SCH (21:45)
[2020-11-28] MEDS: PIPERACILLIN/TAZOBACTAM 3.375 GM in DEXTROSE 5% 100 ML IV SCH ×2 (05:52→15:02)
[2020-11-28] MEDS: ZINC SULFATE 220 MG CAPSULE PO SCH (08:59)
[2020-11-28] MEDS: dexAMETHasone 6 MG in SYRINGE 0 ML IV SCH (08:59)
[2020-11-28] MEDS: MoRPHine SULFATE CR 100 MG TABCR PO SCH (08:59)
[2020-11-28] MEDS: NITROFURANTOIN MONOHYDRATE 100 MG CAP PO SCH (09:00)
[2020-11-28] MEDS: ADVANCED PROBIOTIC 1250 MG CAPSULE PO SCH (09:00)
[2020-11-28] MEDS ORDERED: POLYETHYLENE (MIRALAX) 17 GM PACK PO SCH (09:00)
[2020-11-28] MEDS: ENOXAPARIN INJ 40 MG/0.4 ML SYR SQ SCH (09:00)
[2020-11-28] MEDS: DOCUSATE CALCIUM 240 MG CAPSULE PO SCH (09:00)
[2020-11-28] MEDS: REMDESIVIR 100 MG in SODIUM CHLORIDE 0.9% 230 ML IV SCH (12:15)
[2020-11-28] MEDS: SODIUM CHLORIDE 0.9% 10ML FLUSH IV SCH (13:01)
--- NOTE | 2020-11-28 16:15 | Discharge Summary ---
Date of Service November 28, 2020 Admission HPI Per Admitting Provider Harjinder Corley is a 45-year-old male who presents to the ER from [facility] due to worsening shortness of breath and hypoxia. He was recently diagnosed on with COVID-19 on November 21, [address] abdo/pelvis imaging on Nov 19 showed some bibasal viral pneumonia changes although CXR was relatively unremarkable. He reports fever, chills, shortness of breath, diarrhea (chronic) and fatigue. He denies any nasal congestion, nausea/vomiting, headache, myalgias, abdominal or chest pain. He has a complex prior history which I was unable to get a full history from either the patient, [facility] notes campaign coordinator from [facility]. He has a history of bladder cancer with s/p neobladder formation performed at [facility]. The patient reports developing urinary retention since January requiring intermittent catheterization and he has been performing straight caths approximately x3/day since then. He denies being seen by a urologist after this diagnosis but is somewhat confused at this time. Both the [facility] and patient report a history of recurrent multi-resistant UTIs but I am unclear on what symptoms he was having at the time of these diagnoses. He was on cefepime when here for an ER visit for an unrelated matter in September and has recently been on Zosyn 4.5g QID since November 13 after a urine culture on November 02 grew pseudomonas aeruginosa and enterococcus faecalis. 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 His care was discussed with urology at that time but decided on discharge with close follow up with his urologist in [place]. The patient is unaware of any upcoming appointment for this. In the ER CTA was concerning for multifocal ground glass opacities and subsequent SARS-COV-2 testing was positive. He was referred to medicine for ongoing admission and ongoing management of COVID-19 pneumonia with hypoxia. 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 Lungs are still with scant crackles Cardiac exam, Rhythm is regular.. No murmurs, rubs or gallops. Abdominal exam reveals normal bowel sounds, soft non tender, no masses Extremities are nonedematous and both pedal pulses are normal. Neurologic exam is alert and oriented, no focal loss of strength or sensation Skin is without bruises or rashes Psychologically is without concerns for anxiety or depression. Discharge Data Allergies Allergy/AdvReac Type Severity Reaction Status Date / Time No Known Allergies Allergy Verified 11/25/20 10:30 Consultations 11/25/20 12:51 ED Decision to Admit Stat 11/25/20 15:49 Consult Urology Routine Ordered Studies 11/25/20 10:30 CT angio chest PE protocol Stat Hospital Course (1) Pneumonia due to COVID-19 virus: Patient is now on room air continuation of remdesivir and dexamethasone COVID isolation precautions consider isolation till 12/10/2020 (2) UTI (urinary tract infection): blood cultures negative to date, urine culture contaminated source likely because of the neobladder and the communication with his bowel Diagnosed with pseudomonas and Enterococcus faecalis on November 02 - Started Zosyn on November 12 - in setting of colovesicular fistula, consult urology advises return to [facility] for surgical correction, urine cultures with out specific pathogens. I phoned [facility] infectious disease on-call they recommended not treating with antibiotics unless the patient has symptoms of systemic infection (3) Vina-vesical fistula: history of bladder cancer diagnosed in 2018 s/p left nephrectomy, cystectomy/prostatectomy with neobladder,performed in [facility], [place] (2018). CT scan 11/19/20 cannot exclude fistulae, urology consult recommend da silva, the permanent solution would be eventual return to [facility] for surgical correction (4) Bladder tumor: CT abd pelvis 11/20/20 MPRESSION: 1. Rectosigmoid wall thickening with a fistula communicating with the patient's neobladder. There is stool present within the neobladder 2. Moderate right-sided hydronephrosis and hydroureter. Distal ureteral narrowing at the level of the ureteral neobladder anastomosis (5) Microcytic anemia: pt hgb is 9.2, remains microcytic, iron low and sat low, status post 1 dose of Venofer (6) Hydronephrosis, right: given stable renal function urology is not inclined to intervene at this point, will have a da silva to eliminate obstructive uropathy especially with colonic debris in the bladder Total Time Total Time Spent Total Time Spent (In Minutes): Discharge 30 including communications with infectious disease at [facility] in the supervising physician at the [facility] Discharge Plan Discharge Items Patient Disposition: Home - Self-Care Reason For Visit: COVID-19 PNEUMONIA,HYPOXIA Discharge Diagnosis: covid 19 pneumonia connection from colon to reconstructed bladder Activity: Per Instructions section Activity Comment: needs to have da silva catheter in place change monthly and flush prn obstruct Non-emergency contact: Primary Care Provider and Urologist Call non-emergency contact if: your symptoms worsen Follow-up/Referrals: Klaudia CEBALLOS [Primary Care Provider] - Diet: Regular Addtl Attending Provider Instructions: For covid pneumonia, symptoms have resolved with exception of slight cough, no longer requiring oxygen, since hospitalized would require isolation for 20 days from onset, incidental CT of abdomen in ER 11/19 does show radiographic changes and although not tested + till 11/21 can consider 11/19 the start so isolation maybe released 12/10/20 I spoke to infectious disease at [facility], Dr. Ventura, who recommended no further treatment of urinary tract infection in place the patient has clinical symptoms of infection with the same. Urology has recommended continuing a da silva catheter, change monthly at the minimum and irrigate for obstruction and sediment Please continue to try to arrange follow up for surgical correction of the connection of the bowel to the bladder, infection risk is high until this is repaired Pending Studies at Discharge: No Stand-Alone Forms: My [facility] Medications and DC Order Prescriptions: Continued loperamide 2 mg Capsule See Rx Instructions .ROUTE .COMPLEX MDD 16MG/DAY PRN (Reason: Diarrhea) RF: 0 acetaminophen-codeine 300-30 mg Tablet 3 tab PO TID PRN (Reason: Breakthrough Pain) RF: 0 zinc sulfate 220 mg Tablet 220 mg PO BID RF: 0 tamsulosin [Flomax] 0.4 mg Capsule 0.4 mg PO HS RF: 0 morphine 100 mg Tablet Extended Release 100 mg PO Q12H RF: 0 piperacillin-tazobactam 4.5 gram Recon Soln 4.5 g IV QID RF: 0 ibuprofen 400 mg Tablet 400 mg PO Q4H PRN (Reason: Pain) RF: 0 docusate sodium 250 mg Capsule 250 mg PO DAILY RF: 0 cholecalciferol (vitamin D3) [Vitamin D3] 25 mcg (1,000 unit) Capsule 25 mcg PO DAILY RF: 0 acidophilus-pectin, citrus [Acidophilus Probiotic] 100 million cell-10 mg Capsule 2 cap PO BID RF: 0 Discontinued nitrofurantoin monohyd/m-cryst [Macrobid] 100 mg Capsule 100 mg PO DAILY RF: 0 Discharge Orders: Discharge Order (Routine); Ordered 11/28/20 Ordered By: Zeyad Bowie Admission Data Admit Date/Time: 11/25/20 13:35 Attending Provider: Zeyad Bowie Admit Provider: Sha Han Primary Care Provider: Klaudia CEBALLOS Other Providers: Sha Han ; Prasanna Ji Other Interventions: Discharge Summary Assessment (RN) Last Done: 11/28/20 12:53 Coding Level of Care Code D/C Day Management >30 mins Diagnoses Pneumonia due to COVID-19 virus U07.1; J12.82 UTI (urinary tract infection) N39.0 Vina-vesical fistula N32.1 Bladder tumor D49.4 Microcytic anemia D50.9 Hydronephrosis, right N13.30
== END 2020-11-28 15:09 | DRG 177 ==
LOC: ED 10:12 → 3E 13:35 → SUATTDRO 13:35 → 3E 16:00

== ENCOUNTER 2021-01-10 10:13 | Inpatient (IN) ==
--- NOTE | 2021-01-10 10:33 | Emergency Department Note ---
History of Present Illness General Chief complaint: Abdominal Pain Time Seen by Provider: 01/10/21 10:14 History of Present Illness Maximum Pain Intensity: 7 This is a 45-year-old male that presents to the emergency department via chief business officer escort with complaints of "abdominal pain". Patient is currently incarcerated at [facility] [place]. The patient notes that he recently had surgery at [facility] in [place]. He notes that he now has a nephrostomy tube right side noting that he only has 1 kidney, Lim catheter as well as ileostomy. Patient notes that he was doing well. He notes that the IV antibiotics were stopped 1 week ago. Since that time he notes return of lower abdominal pain described as a pressure in the rectal region, decreased appetite. He notes intermittent fever. He denies any chills, chest pain or shortness of breath. Patient rates his overall discomfort at this time is a 7/10. He notes that he did receive oral pain medication at the [facility] prior to arrival. Home Medications Medication Instructions Recorded Confirmed Type cholecalciferol (vitamin D3) 25 mcg PO DAILY 11/19/20 01/10/21 History [Vitamin D3] enoxaparin 40 mg SUBCUT DAILY 01/10/21 01/10/21 History food supplemt, lactose-reduced 1 ea PO TID 01/10/21 01/10/21 History [Ensure Plus] morphine 30 mg PO Q12H 01/10/21 01/10/21 History pantoprazole 40 mg PO DAILY 01/10/21 01/10/21 History pedi multivit [id number] 1 tab PO DAILY 01/10/21 01/10/21 History [Cerovite Jr] Allergies Allergy/AdvReac Type Severity Reaction Status Date / Time No Known Allergies Allergy Verified 01/10/21 12:11 Past Med/Surg History Medical History Bladder tumor UTI (urinary tract infection) Surgical History History of bladder surgery Neobladder anastomosis Social History Smoking Status: Former smoker Second Hand Exposure: No; Hx Alcohol Use: No Hx Substance Use: No Preferred Language: Italian Communication Ability: Effective Right Of Way Buyer Required: No Beliefs That Will Affect Care: None Current Living Situation: Other Current Living Situation Comment: patient is inmate at [facility] Feels Safe at Home: Yes Assistive Devices: Oxygen - Continuous Review of Systems A total of 10 systems reviewed and were otherwise negative Physical Exam Vital Signs Vital Signs - 24 hr 01/10/21 10:21 01/10/21 12:14 01/10/21 12:17 Temperature 37.2 C Temperature Source Oral Pulse Rate 125 H 105 H 108 H Pulse Rate from SpO2 Sensor 106 H 108 H Pulse Rhythm Regular Pulse Strength Normal Respiratory Rate 20 26 H 19 Respiratory Effort / Characteristics Non-Labored Spontaneous Respiratory Depth Normal Respiratory Pattern Regular Blood Pressure 103/50 L 123/80 Blood Pressure Mean 67 94 Blood Pressure Position Sitting Pulse Oximetry 100 100 97 Oxygen Delivery Method Room Air Sepsis Recent Fever Within 48 Hours No Sepsis New/Unexplained Change in Mental Status N/A Sepsis Action Taken by Nursing No Action Required 01/10/21 12:20 01/10/21 12:30 01/10/21 12:40 Temperature Temperature Source Pulse Rate 108 H 105 H 103 H Pulse Rate from SpO2 Sensor 106 H 106 H 103 H Pulse Rhythm Pulse Strength Respiratory Rate 20 16 22 Respiratory Effort / Characteristics Respiratory Depth Respiratory Pattern Blood Pressure Blood Pressure Mean Blood Pressure Position Pulse Oximetry 100 100 100 Oxygen Delivery Method Sepsis Recent Fever Within 48 Hours Sepsis New/Unexplained Change in Mental Status Sepsis Action Taken by Nursing 01/10/21 13:00 01/10/21 13:01 01/10/21 13:10 Temperature 36.9 C Temperature Source Oral Pulse Rate 104 H 104 H 104 H Pulse Rate from SpO2 Sensor 104 H 104 H 104 H Pulse Rhythm Pulse Strength Respiratory Rate 19 19 17 Respiratory Effort / Characteristics Respiratory Depth Respiratory Pattern Blood Pressure 115/74 114/72 Blood Pressure Mean 87 86 Blood Pressure Position Pulse Oximetry 99 99 100 Oxygen Delivery Method Sepsis Recent Fever Within 48 Hours Sepsis New/Unexplained Change in Mental Status Sepsis Action Taken by Nursing 01/10/21 13:11 01/10/21 13:15 01/10/21 13:16 Temperature Temperature Source Pulse Rate 107 H 104 H 101 H Pulse Rate from SpO2 Sensor 108 H 104 H 101 H Pulse Rhythm Pulse Strength Respiratory Rate 18 18 16 Respiratory Effort / Characteristics Respiratory Depth Respiratory Pattern Blood Pressure 110/72 Blood Pressure Mean 84 Blood Pressure Position Pulse Oximetry 99 99 99 Oxygen Delivery Method Sepsis Recent Fever Within 48 Hours Sepsis New/Unexplained Change in Mental Status Sepsis Action Taken by Nursing 01/10/21 13:20 01/10/21 13:25 01/10/21 13:30 Temperature 36.9 C Temperature Source Oral Pulse Rate 101 H 101 H 100 H Pulse Rate from SpO2 Sensor 101 H 101 H 100 H Pulse Rhythm Pulse Strength Respiratory Rate 19 16 17 Respiratory Effort / Characteristics Respiratory Depth Respiratory Pattern Blood Pressure 117/75 110/71 117/71 Blood Pressure Mean 89 84 86 Blood Pressure Position Pulse Oximetry 99 99 99 Oxygen Delivery Method Sepsis Recent Fever Within 48 Hours Sepsis New/Unexplained Change in Mental Status Sepsis Action Taken by Nursing 01/10/21 13:31 01/10/21 13:35 01/10/21 13:40 Temperature Temperature Source Pulse Rate 106 H 105 H 104 H Pulse Rate from SpO2 Sensor 105 H 105 H 104 H Pulse Rhythm Pulse Strength Respiratory Rate 17 14 18 Respiratory Effort / Characteristics Respiratory Depth Respiratory Pattern Blood Pressure 111/74 117/75 Blood Pressure Mean 86 89 Blood Pressure Position Pulse Oximetry 100 98 98 Oxygen Delivery Method Sepsis Recent Fever Within 48 Hours Sepsis New/Unexplained Change in Mental Status Sepsis Action Taken by Nursing 01/10/21 13:41 01/10/21 13:45 01/10/21 13:50 Temperature Temperature Source Pulse Rate 104 H 102 H 106 H Pulse Rate from SpO2 Sensor 104 H 102 H 105 H Pulse Rhythm Pulse Strength Respiratory Rate 20 18 14 Respiratory Effort / Characteristics Respiratory Depth Respiratory Pattern Blood Pressure 114/80 Blood Pressure Mean 91 Blood Pressure Position Pulse Oximetry 99 97 99 Oxygen Delivery Method Sepsis Recent Fever Within 48 Hours Sepsis New/Unexplained Change in Mental Status Sepsis Action Taken by Nursing 01/10/21 14:00 01/10/21 14:01 01/10/21 14:10 Temperature 37.3 C Temperature Source Oral Pulse Rate 105 H 105 H 110 H Pulse Rate from SpO2 Sensor 105 H 105 H 110 H Pulse Rhythm Pulse Strength Respiratory Rate 15 17 20 Respiratory Effort / Characteristics Respiratory Depth Respiratory Pattern Blood Pressure 125/80 125/80 Blood Pressure Mean 95 95 Blood Pressure Position Lying Pulse Oximetry 99 99 99 Oxygen Delivery Method Sepsis Recent Fever Within 48 Hours Sepsis New/Unexplained Change in Mental Status Sepsis Action Taken by Nursing 01/10/21 14:15 01/10/21 14:20 01/10/21 14:30 Temperature Temperature Source Pulse Rate 107 H 107 H 103 H Pulse Rate from SpO2 Sensor 108 H 106 H 104 H Pulse Rhythm Pulse Strength Respiratory Rate 23 Respiratory Effort / Characteristics Respiratory Depth Respiratory Pattern Blood Pressure 118/81 124/81 Blood Pressure Mean 93 95 Blood Pressure Position Pulse Oximetry 99 98 98 Oxygen Delivery Method Sepsis Recent Fever Within 48 Hours Sepsis New/Unexplained Change in Mental Status Sepsis Action Taken by Nursing 01/10/21 14:31 01/10/21 14:40 01/10/21 14:45 Temperature Temperature Source Pulse Rate 103 H 104 H 103 H Pulse Rate from SpO2 Sensor 104 H 104 H 104 H Pulse Rhythm Pulse Strength Respiratory Rate 18 Respiratory Effort / Characteristics Respiratory Depth Respiratory Pattern Blood Pressure 119/74 Blood Pressure Mean 89 Blood Pressure Position Pulse Oximetry 99 99 100 Oxygen Delivery Method Sepsis Recent Fever Within 48 Hours Sepsis New/Unexplained Change in Mental Status Sepsis Action Taken by Nursing 01/10/21 14:50 01/10/21 15:00 01/10/21 15:01 Temperature Temperature Source Pulse Rate 117 H 113 H 111 H Pulse Rate from SpO2 Sensor 116 H 112 H 110 H Pulse Rhythm Pulse Strength Respiratory Rate 18 19 Respiratory Effort / Characteristics Respiratory Depth Respiratory Pattern Blood Pressure 123/76 Blood Pressure Mean 91 Blood Pressure Position Pulse Oximetry 99 99 99 Oxygen Delivery Method Sepsis Recent Fever Within 48 Hours Sepsis New/Unexplained Change in Mental Status Sepsis Action Taken by Nursing 01/10/21 15:10 01/10/21 15:15 Temperature 36.9 C Temperature Source Oral Pulse Rate 110 H 106 H Pulse Rate from SpO2 Sensor 111 H 108 H Pulse Rhythm Pulse Strength Respiratory Rate 17 Respiratory Effort / Characteristics Respiratory Depth Respiratory Pattern Blood Pressure 123/76 120/67 Blood Pressure Mean 91 84 Blood Pressure Position Pulse Oximetry 98 98 Oxygen Delivery Method Sepsis Recent Fever Within 48 Hours Sepsis New/Unexplained Change in Mental Status Sepsis Action Taken by Nursing VITAL SIGNS - Vital signs and nursing notes were reviewed. Hypotensive and tachycardic. GENERAL - 45-year-old male appearing his stated age who is in no acute distress. Communicates well with provider and answers questions appropriately. SKIN - Without rashes. The patient's ileostomy, nephrostomy tube site appear to be without infection. Patient is pale in appearance. No surrounding erythema or edema. HEAD - NC/AT. EYES - PERRL with EOMI bilaterally. Sclera anicteric. EARS - No deformities of external structures noted on gross examination bilaterally. NOSE - Midline and without cyanosis. No epistaxis or purulent drainage noted. MOUTH/OROPHARYNX - Without perioral cyanosis. NECK - Neck with FROM. No nuchal rigidity. LUNGS - Chest wall symmetric without accessory muscle use, intercostals retractions, or central cyanosis. Normal vesicular breath sounds CTA B/L. No wheezes, rales, or rhonchi appreciated. CARDIAC -tachycardic with S1/S2. No murmur, rubs, or gallops appreciated. ABDOMEN - Abdominal contour normal without pulsations or visible masses. BS normoactive all four quadrants. Nephrostomy tube in place, Lim catheter in place as well as ileostomy. No bright red blood. No evidence of infection. No tenderness, palpable masses, hepatosplenomegaly, or ascites noted. EXTREMITIES - No clubbing or peripheral cyanosis. +5/5 strength noted in UE/LE bilaterally. NEUROLOGIC - Cranial nerves II through XII grossly intact. Sensory intact to light touch throughout. PSYCH - A&Ox3 and cooperates fully with examiner. Pt is very pleasant and interacts well with examiner. Course Administered Medications Discontinued Medications Sodium Chloride (Nss 1000ml) 1,000 mls @ 999 mls/hr IV .[id number] JERMAINE Stop: 01/10/21 11:45 Last Infusion: 01/10/21 12:07 Dose: 0 mls/hr Documented by: [id number] Admin: 01/10/21 10:49 Dose: 999 mls/hr Documented by: [id number] Piperacillin Sod/Tazobactam Sod (Zosyn) 4.5 gm in 120 mls @ 240 mls/hr IV NOW ONE Stop: 01/10/21 11:04 Last Infusion: 01/10/21 12:07 Dose: 0 mls/hr Documented by: [id number] Admin: 01/10/21 10:57 Dose: 240 mls/hr Documented by: [id number] Ioversol (Ioversol 100ml) 94 ml IV ONCE ONE Stop: 01/10/21 13:01 Last Admin: 01/10/21 13:01 Dose: 94 ml Documented by: [id number] Critical Care Time Total Critical Care Time: 42 I have personally spent about 42 minutes of critical care time in the direct management of this patient. This includes bedside care, interpretation of diagnostic studies, and testing, discussion with consultants, patient, and medical staff at [facility] [place], and other required patient management activities. This 42 minutes is in excess of all separately billable procedures. Medical Decision Making Laboratory Data Result diagrams: 01/10/21 10:45 01/10/21 10:45 Lab Results 01/10/21 01/10/21 01/10/21 Range/Units 10:45 10:45 10:45 WBC 21.40 H (4.8-10.8) K/uL RBC 2.54 L (4.7-6.1) M/uL Hgb 6.3 L* (14.0-18.0) g/dL Hct 20.2 L* (42-52) % MCV 79.5 L (80-100) fL MCH 24.8 L (25-34) pg MCHC 31.2 L (32-36) g/dL RDW Std Deviation 53.6 H (36.4-46.3) fL RDW Coeff of Chris 18.2 H (11.5-14.5) % Plt Count 846 H (130-400) K/uL MPV 8.0 (7.4-10.4) fL Immature Gran % (Auto) 0.2 % Neut % (Auto) 85.1 % Lymph % (Auto) 5.0 % [place] % (Auto) 7.8 % Eos % (Auto) 1.8 % Baso % (Auto) 0.1 % Neut # (Auto) 18.20 H (1.4-6.5) K/uL Lymph # (Auto) 1.07 L (1.2-3.4) K/uL [place] # (Auto) 1.67 H (0.11-0.59) K/uL Eos # (Auto) 0.38 (0-0.5) K/uL Baso # (Auto) 0.03 (0-0.2) K/uL Immature Gran # (Auto) 0.05 H (0.00-0.02) K/uL Hypochromasia Present Anisocytosis Present Target Cells 1+ PT (9.0-12.0) Seconds INR (0.9-1.1) APTT (21.0-31.0) Seconds PTT Ratio Sodium 134 L (136-145) mmol/L Potassium 4.1 (3.5-5.1) mmol/L Chloride 102 (98-107) mmol/L Carbon Dioxide 23 (21-32) mmol/L Anion Gap 9.0 (3-11) BUN 11 (7-18) mg/dl Creatinine 1.01 (0.6-1.4) mg/dl Est Cr Clr Drug Dosing 72.1 ml/min Est GFR ( Amer) 104.4 Est GFR (Non-Af Amer) 90.0 BUN/Creatinine Ratio 11.3 (10-20) Glucose 139 H (70-99) mg/dl Lactate (0.4-2.0) mmol/L Calcium 8.5 (8.5-10.1) mg/dl Magnesium 1.7 L (1.8-2.4) mg/dl Total Bilirubin 0.4 (0.2-1) mg/dl AST 16 (15-37) U/L ALT 24 (12-78) U/L Alkaline Phosphatase 297 H (45-117) U/L Troponin I (0-0.045) ng/ml Total Protein 6.7 (6.4-8.2) gm/dl Albumin 1.8 L (3.4-5.0) gm/dl Globulin 4.9 H (2.5-4.0) gm/dl Albumin/Globulin Ratio 0.4 L (0.9-2) Procalcitonin 0.49 (0-0.5) ng/ml Urine Color Urine Appearance (Clear) Urine pH (4.5-7.5) Ur Specific [place] (1.000-1.030) Urine Protein (Negative) Urine Glucose (UA) (Negative) Urine Ketones (Negative) Urine Blood (Negative) Urine Nitrite (Negative) Urine Bilirubin (Negative) Urine Urobilinogen (Negative) Ur Leukocyte Esterase (Negative) Urine WBC (Auto) (0-5) /hpf Urine RBC (Auto) (0-4) /hpf U Hyaline Cast (Auto) (0-5) /lpf U Epithel Cells (Auto) (0-5) /lpf Urine Bacteria (Auto) (Negative) Urine Yeast Blood Type Antibody Screen Crossmatch 01/10/21 01/10/21 01/10/21 Range/Units 10:45 10:54 11:08 WBC (4.8-10.8) K/uL RBC (4.7-6.1) M/uL Hgb (14.0-18.0) g/dL Hct (42-52) % MCV (80-100) fL MCH (25-34) pg MCHC (32-36) g/dL RDW Std Deviation (36.4-46.3) fL RDW Coeff of Chris (11.5-14.5) % Plt Count (130-400) K/uL MPV (7.4-10.4) fL Immature Gran % (Auto) % Neut % (Auto) % Lymph % (Auto) % [place] % (Auto) % Eos % (Auto) % Baso % (Auto) % Neut # (Auto) (1.4-6.5) K/uL Lymph # (Auto) (1.2-3.4) K/uL [place] # (Auto) (0.11-0.59) K/uL Eos # (Auto) (0-0.5) K/uL Baso # (Auto) (0-0.2) K/uL Immature Gran # (Auto) (0.00-0.02) K/uL Hypochromasia Anisocytosis Target Cells PT (9.0-12.0) Seconds INR (0.9-1.1) APTT (21.0-31.0) Seconds PTT Ratio Sodium (136-145) mmol/L Potassium (3.5-5.1) mmol/L Chloride (98-107) mmol/L Carbon Dioxide (21-32) mmol/L Anion Gap (3-11) BUN (7-18) mg/dl Creatinine (0.6-1.4) mg/dl Est Cr Clr Drug Dosing ml/min Est GFR ( Amer) Est GFR (Non-Af Amer) BUN/Creatinine Ratio (10-20) Glucose (70-99) mg/dl Lactate 1.9 (0.4-2.0) mmol/L Calcium (8.5-10.1) mg/dl Magnesium (1.8-2.4) mg/dl Total Bilirubin (0.2-1) mg/dl AST (15-37) U/L ALT (12-78) U/L Alkaline Phosphatase (45-117) U/L Troponin I < 0.015 (0-0.045) ng/ml Total Protein (6.4-8.2) gm/dl Albumin (3.4-5.0) gm/dl Globulin (2.5-4.0) gm/dl Albumin/Globulin Ratio (0.9-2) Procalcitonin (0-0.5) ng/ml Urine Color Yellow Urine Appearance Turbid A (Clear) Urine pH 6.5 (4.5-7.5) Ur Specific [place] 1.012 (1.000-1.030) Urine Protein 3+ H (Negative) Urine Glucose (UA) Negative (Negative) Urine Ketones Negative (Negative) Urine Blood 3+ H (Negative) Urine Nitrite Negative (Negative) Urine Bilirubin Negative (Negative) Urine Urobilinogen Negative (Negative) Ur Leukocyte Esterase 3+ H (Negative) Urine WBC (Auto) >30 H (0-5) /hpf Urine RBC (Auto) 10-30 H (0-4) /hpf U Hyaline Cast (Auto) 5-10 H (0-5) /lpf U Epithel Cells (Auto) >30 H (0-5) /lpf Urine Bacteria (Auto) 1+ H (Negative) Urine Yeast Not Reportable Blood Type Antibody Screen Crossmatch 01/10/21 01/10/21 Range/Units 11:08 11:49 WBC (4.8-10.8) K/uL RBC (4.7-6.1) M/uL Hgb (14.0-18.0) g/dL Hct (42-52) % MCV (80-100) fL MCH (25-34) pg MCHC (32-36) g/dL RDW Std Deviation (36.4-46.3) fL RDW Coeff of Chris (11.5-14.5) % Plt Count (130-400) K/uL MPV (7.4-10.4) fL Immature Gran % (Auto) % Neut % (Auto) % Lymph % (Auto) % [place] % (Auto) % Eos % (Auto) % Baso % (Auto) % Neut # (Auto) (1.4-6.5) K/uL Lymph # (Auto) (1.2-3.4) K/uL [place] # (Auto) (0.11-0.59) K/uL Eos # (Auto) (0-0.5) K/uL Baso # (Auto) (0-0.2) K/uL Immature Gran # (Auto) (0.00-0.02) K/uL Hypochromasia Anisocytosis Target Cells PT 11.3 (9.0-12.0) Seconds INR 1.1 (0.9-1.1) APTT 28.8 (21.0-31.0) Seconds PTT Ratio 1.1 Sodium (136-145) mmol/L Potassium (3.5-5.1) mmol/L Chloride (98-107) mmol/L Carbon Dioxide (21-32) mmol/L Anion Gap (3-11) BUN (7-18) mg/dl Creatinine (0.6-1.4) mg/dl Est Cr Clr Drug Dosing ml/min Est GFR ( Amer) Est GFR (Non-Af Amer) BUN/Creatinine Ratio (10-20) Glucose (70-99) mg/dl Lactate (0.4-2.0) mmol/L Calcium (8.5-10.1) mg/dl Magnesium (1.8-2.4) mg/dl Total Bilirubin (0.2-1) mg/dl AST (15-37) U/L ALT (12-78) U/L Alkaline Phosphatase (45-117) U/L Troponin I (0-0.045) ng/ml Total Protein (6.4-8.2) gm/dl Albumin (3.4-5.0) gm/dl Globulin (2.5-4.0) gm/dl Albumin/Globulin Ratio (0.9-2) Procalcitonin (0-0.5) ng/ml Urine Color Urine Appearance (Clear) Urine pH (4.5-7.5) Ur Specific [place] (1.000-1.030) Urine Protein (Negative) Urine Glucose (UA) (Negative) Urine Ketones (Negative) Urine Blood (Negative) Urine Nitrite (Negative) Urine Bilirubin (Negative) Urine Urobilinogen (Negative) Ur Leukocyte Esterase (Negative) Urine WBC (Auto) (0-5) /hpf Urine RBC (Auto) (0-4) /hpf U Hyaline Cast (Auto) (0-5) /lpf U Epithel Cells (Auto) (0-5) /lpf Urine Bacteria (Auto) (Negative) Urine Yeast Blood Type A Positive Antibody Screen NEGATIVE Crossmatch See Detail MDM Narrative Patient was seen and evaluated as above in room C1. Review was performed of nursing notes and vital signs. I did review pertinent previous visits and patient history. After obtaining a thorough history and physical examination the above work up was performed. Patient presents to us today via chief business officer escort from [facility] [place] where he is currently incarcerated. He notes worsening abdominal pain over the past week since stopping the IV antibiotics. He has a history of recent hospitalization at [facility] between December 08 and December 26. It appears that the patient has he notes that he now has neph rostomy tube, ileostomy as well as Lim catheter. He notes intermittent fevers over the past week. He notes increasing pain in the rectal region. He denies seeing any bright red blood from any of the drainage sites. On exam the ileostomy tube, Lim catheter and ileostomy appear to be within normal limits. Patient is hypotensive and tachycardic on arrival. Patient was provided fluid resuscitation and empiric antibiotics upon arrival. Concern is for infection. Laboratory studies were drawn. Blood cultures pending. There is leukocytosis 21.40 with significant anemia which is an interv al change and is now 6.3. Platelet count 846. Sodium mildly low at 134. Magnesium mildly low at 1.7. Pro-Santiago within normal limits. Lactic within normal limits. Given the significant anemia patient was typed and crossed x2 units. Consent was obtained by the attending physician. I did reach out to the patient surgical team at [facility]. I spoke with ALY Dietz with Dr. Woo of urology. She spoke with him and then he called me back after we reached out regarding the CT scan findings. I reviewed the case with Dr. Woo. 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 We also reviewed the CT scan findings. He noted that the findings on the CT were the same findings the patient was hospitalized there with and at this time it is not felt that there is any other additional surgical intervention that would be of benefit to the patient at this time. It is not felt that the patient requires transfer to there, rather can be managed here with transfusion, hydration, antibiotics and pain control. We could potentially consider chemotherapy. It was also noted that the patient's WBC while at [facility] was at 50,000 and then his discharge WBC was near 20,000. Patient was educated upon plan of care. I do believe that he requires inpatient management and do not believe that discharge today would be reasonable. Patient was happy with plan of care. While in the department, I personally reevaluated the patient several times and each time the patient was found to be resting comfortably. Case discussed with the hospitalist. Please refer to further documentation regarding his stay. EKG reveals sinus tachycardia rate of [address] elevation. QTc 433. QRS 76. Case was discussed with the attending physician. An order was placed for continuous cardiac monitoring. The monitor shows a rate of 116 with sinus tach rhythm. GCS: 15 In the evaluation and treatment of this patient the following differential diagnoses were entertained: Acute abdomen, infection, acute blood loss anemia, malignancy, among others. Impression & Plan Anemia, Abdominal pain, lower Discharge Plan Visit Data Chief Complaint: Abdominal Pain ED Provider: Justin Bermudez ED Midlevel Provider: Biju Lorenzo Discharge Problem: Anemia, Abdominal pain, lower Patient Disposition: Admitted As Inpatient Condition: Good Discharge Instructions Interventions: ED Discharge Assessment Last Done: 01/10/21 16:38
[2021-01-10] MEDS ORDERED: PIPERACILLIN/TAZOBACTAM 4.5 GM/120 ML BAG IV ONE (10:35)
[2021-01-10] MEDS ORDERED: PIPERACILL/TAZOBAC CONSULT ACTIVE PRN (10:35)
[2021-01-10] MEDS ORDERED: SODIUM CHLORIDE 0.9% 1000ML 1,000 ML IV SCH (10:45)
[2021-01-10 11:21] LABS: Albumin Level 1.8 gm/dl (3.4-5.0); BUN Creatinine Ratio 11.3 (10-20); Calcium 8.5 mg/dl (8.5-10.1); Creatinine Clr Calc Pharmacy 72.1 ml/min; Est GFR (African American) 104.4; Magnesium 1.7 mg/dl (1.8-2.4); Potassium 4.1 mmol/L (3.5-5.1)
[2021-01-10 11:23] LABS: Hematocrit (blood only) 20.2 % (42-52); Hemoglobin 6.3 g/dL (14.0-18.0); Mean Corpuscular Hemoglobin 24.8 pg (25-34); Mean Corpuscular Hgb Conc 31.2 g/dL (32-36); Mean Corpuscular Volume 79.5 fL (80-100); Platelet Count 846 K/uL (130-400); RDW Coefficient of Variation 18.2 % (11.5-14.5); RDW Standard Deviation 53.6 fL (36.4-46.3); Red Blood Count 2.54 M/uL (4.7-6.1)
[2021-01-10 11:27] LABS: Albumin Globulin Ratio 0.4 (0.9-2); Bilirubin,Total 0.4 mg/dl (0.2-1); Globulin 4.9 gm/dl (2.5-4.0); Total Protein 6.7 gm/dl (6.4-8.2)
[2021-01-10] MEDS ORDERED: SODIUM CHLORIDE 0.9% 250 ML IV PRN (11:32)
[2021-01-10 11:33] LABS: Anisocytosis Present; Basophils # (auto) 0.03 K/uL (0-0.2); Basophils % (auto) 0.1 %; Eosinophils # (auto) 0.38 K/uL (0-0.5); Eosinophils % (auto) 1.8 %; Hypochromasia Present; Immature Granulocytes # (auto) 0.05 K/uL (0.00-0.02); Immature Granulocytes % (auto) 0.2 %; Lymphocytes # (auto) 1.07 K/uL (1.2-3.4); Monocytes # (auto) 1.67 K/uL (0.11-0.59); Monocytes % (auto) 7.8 %; Neutrophils % (auto) 85.1 %; Target Cells 1+
[2021-01-10 12:07] LABS: INR 1.1 (0.9-1.1); Partial Thromboplastin Ratio 1.1; Partial Thromboplastin Time 28.8 Seconds (21.0-31.0); Prothrombin Time 11.3 Seconds (9.0-12.0)
[2021-01-10 12:12] LABS: Appearance Urine Turbid (Clear); Bacteria Urine Automated 1+ (Negative); Bilirubin Urine Negative (Negative); Blood Urine 3+ (Negative); Color Urine Yellow; Epithelial Cell Urine Auto >30 /lpf (0-5); Glucose Urine UA Negative (Negative); Ketones Urine Negative (Negative); Leukocyte Esterase Urine 3+ (Negative); Nitrite Urine Negative (Negative); Protein Urine 3+ (Negative); Specific Gravity Urine 1.012 (1.000-1.030); Urobilinogen Urine Negative (Negative); WBC Urine Automated >30 /hpf (0-5); pH Urine 6.5 (4.5-7.5)
[2021-01-10] MEDS ORDERED: OPTIRAY 320 100ml IV ONE (13:00)
--- NOTE | 2021-01-10 13:34 | CT Scan Report ---
CT abd pelvis oral and IV con CLINICAL HISTORY: Lower abdominal pain, fever, hypotension, tachycardia. History of bladder carcinoma COMPARISON STUDY: Noncontrast study dated 11/20/2020 TECHNIQUE: The patient was scanned following administration of dilute oral contrast, and in a dynamic helical fashion during intravenous administration of 94 cc of Optiray 320 A dose lowering technique was utilized adhering to the principles of ALARA. CT DOSE: 315.46 mGycm FINDINGS: Lower chest: The heart is normal in size and configuration, without pericardial effusion. The lung ba ses and pleural spaces are clear. Liver: The contrast-enhanced liver is normal in size, contour, and attenuation. There is no intrahepa tic biliary ductal dilatation. The hepatic veins and portal veins are patent. Gallbladder: Contracted Spleen: Normal in size and attenuation. Pancreas: Unremarkable. Adrenal glands: Unremarkable. Kidneys: The left kidney appears surgically absent. There is a right-sided nephrostomy tube. There is mild right-sided hydronephrosis and hydroureter. Bowel: Since the prior study, the patient has undergone a left lower quadrant double barrel colostomy and right lower quadrant ileostomy. There is bowel wall thickening involving the descending colon an d rectosigmoid. The patient has a neobladder with indwelling Lim catheter. There is a suspected fis keily with the rectum. There is irregular pelvic nodularity extending over a distance 10 cm. This is felt to represent a combination of thick-walled bowel loops, and progressive neoplasm. Peritoneum: There is no free intraperitoneal air. There is abdominal wall gas consistent with recent surgery. Vasculature: The abdominal aorta is normal in course and caliber. Adenopathy: There is mild inguinal and para-aortic lymphadenopathy. Pelvic viscera: The patient is status post a cystectomy. There is a neobladder with an indwelling Fol ey catheter. As stated above there is a suspected fistula with the rectum. There are abnormally thick walled pelvic bowel loops and there is nodularity suspicious for neoplasm.. Skeletal structures: No destructive osseous lesions are seen. IMPRESSION: 1. Difficult study to interpret 2. Postsurgical changes of a prior cystectomy prostatectomy and neobladder creation 3. Postsurgical changes are prior left nephrectomy 4. Interval placement of a right-sided percutaneous nephrostomy 5. Interval placement of a right lower quadrant ileostomy and left lower quadrant small bowel colosto my 6. Markedly abnormal appearance of the pelvis. The findings are likely secondary to a breakdown of th e neobladder wall and fistulization with adjacent bowel. The neobladder and pelvic area is studded wi th soft tissue nodule suspicious for carcinoma. 7. Mild inguinal and aortocaval lymphadenopathy ACT 112: Negative or not required by law. Electronically signed by: Felice Cruz M.D. 01/10/2021 1:33 PM
--- NOTE | 2021-01-10 16:55 | Electrocardiogram Report ---
Test Reason : Blood Pressure : / mmHG Vent. Rate : 106 BPM Atrial Rate : 106 BPM P-R Int : 140 ms QRS Dur : 076 ms QT Int : 326 ms P-R-T Axes : 059 024 036 degrees QTc Int : 433 ms Sinus tachycardia Otherwise normal ECG When compared with ECG of 25-NOV-2020 10:23, No significant change was found Confirmed by Balwinder Mata ([id number]) on 01/10/2021 4:55:07 PM Referred By: Klaudia [facility] Confirmed By:Pete Mata
[2021-01-10] MEDS ORDERED: ACETAMINOPHEN 325 MG TAB PO PRN (17:12)
[2021-01-10] MEDS: MAGNESIUM SULFATE / D5W 1 GM/100 ML BAG IV SCH ×2 (18:35→20:37)
[2021-01-10] MEDS: HYDROCODONE/ACETAMOPHEN 5/325MG TAB PO PRN (18:35)
[2021-01-10] MEDS: PIPERACILLIN/TAZOBACTAM 3.375 GM in DEXTROSE 5% 100 ML IV SCH (18:36)
--- NOTE | 2021-01-10 20:47 | History & Physical Report ---
Date of Service January 10, 2021 Assessment & Plan (1) UTI (urinary tract infection): Presumed cause of fever, weakness at the custodial given he had felt well until switching to oral abx 1 week ago. Of note, per prior records, his WBC was also ~20 when he was discharged from [facility], so this appears to be stable. - Cultures taken from his Lim catheter (which has been switched subsequently). - Right nephrostomy tube bag sample ordered, but so far not done. Will reach out to RN. (This would obviously be after abx given.) - Blood cultures drawn in the ED - Continue Zosyn started in the ED; adjust per culture results (2) Bladder tumor: Recently discharged from [facility] after colectomy, ileostomy, and right nephrostomy tube. The patient was discussed with Dr. John Woo from [facility] who felt there was no surgical intervention warranted and therefore the patient did not warrant transfer back to [place]. From my discussion with him, medical oncology was not involved in the patient's care there, and therefore he does not have a primary oncologist as far as I can tell. - Consult oncology - Consult palliative care - Continue morphine ER, added [place] PRN (3) Anemia: Hgb was ~ 8 - 9 during prior admission in 11/2020, but this was before major surgery at [facility]. Anemia is microcytic, indicating iron deficiency. No sign of acute bleed at present. - ED ordered 2 units of PRBCs - Monitor CBC - Will get iron labs in the morning, though these may be affected by his blood transfusion (4) Thrombocytosis: Plts were 846 on admission. Presumably reactive due to cancer & anemia. - Monitor (5) DVT prophylaxis: Lovenox 40 mg SQ daily -> No overt signs of bleeding, and given his cancer, he is high risk for VTE. Continue for now. Admission and Anticipated Discharge Date Admission Date: January 10, 2021 History of Present Illness Primary Care Provider: LIN Rudolph 45yo M w/ hx of bladder cancer who presents with fatigue, fevers, and weakness. The patient is a very unfortunate gentleman who has a history of bladder cancer. He reports he underwent chemotherapy in [place] which ended in 12/2017. At some point, he had a cystectomy, left nephrectomy, prostatectomy, and neobladder formation at [facility] also in 2018. He was admitted in 11/2020 with Covid and seen by our urology team who recommended return to [facility] for correction of a colovesicular fistula. At some point, he went to [facility] and underwent a large procedure where he had a colostomy and ileostomy and right nephrostomy tube. He was discharged approx. 2 weeks later on IV antibiotics. He reports to me that he finished his IV antibiotics about 1 week ago and was transitioned to oral antibiotics. He reports that he very quickly felt weaker and had a loss of appetite. He also had a temperature to 101 at the custodial which preciptated his being sent to the ED for evaluation. Allergies Allergy/AdvReac Type Severity Reaction Status Date / Time No Known Allergies Allergy Verified 01/10/21 12:11 Home Medications Medication Instructions Recorded Confirmed Type cholecalciferol (vitamin D3) 25 mcg PO DAILY 11/19/20 01/10/21 History [Vitamin D3] enoxaparin 40 mg SUBCUT DAILY 01/10/21 01/10/21 History food supplemt, lactose-reduced 1 ea PO TID 01/10/21 01/10/21 History [Ensure Plus] morphine 30 mg PO Q12H 01/10/21 01/10/21 History pantoprazole 40 mg PO DAILY 01/10/21 01/10/21 History pedi multivit [id number] K1 1 tab PO DAILY 01/10/21 01/10/21 History [Cerovite Jr] Past Med/Surg History Medical History Bladder tumor UTI (urinary tract infection) Surgical History History of bladder surgery Neobladder anastomosis Family History (Updated 01/10/21 @ 20:27 by Ronaldo Biggs MD) Father Hypertension Social History Smoking Status: Former smoker Second Hand Exposure: No; Hx Alcohol Use: No Hx Substance Use: No Preferred Language: Fijian Communication Ability: Effective Emergency Vehicle Operator Required: No Beliefs That Will Affect Care: None Current Living Situation: Other Current Living Situation Comment: correctional facility Other Information That Helps Us Care for You: No Feels Safe at Home: Yes Safety Concerns: Feels Safe At This Time Assistive Devices: None Review of Systems Review of Systems: All systems reviewed & are unremarkable except as noted in HPI & below Physical Exam Constitutional: WD/WN, vitals as above Eyes: EOM intact bilaterally; no conjunctival abnormality ENMT: external ear and nose normal, oropharynx normal Neck: trachea midline, no thyromegaly normal visual inspection Respiratory: normal respiratory effort, lungs clear to auscultation no respiratory distress Cardiovascular: RRR, no murmur, no edema Gastrointestinal (Abdomen): Inspection/Auscultation: + abdominal surgical scar (Midline surgical scar appears clean and without purulence. Two ostomies.) and + abdominal surgical incision; + abdomen abnormal to inspection and abdomen not distended Percussion/Palpation: abdomen soft; abdomen nontender, no guarding and abdomen not rigid Musculoskeletal: no cyanosis or clubbing, extremities motor strength 5/5 Skin: no rashes, warm and dry Neurologic: moves all extremities and awake Psychiatric: Orientation: alert, oriented to person and cooperative Genitourinary: no CVA tenderness (Right nephrostomy tube without erythema at the entry point.) Results & Data Results & Data ([facility]) Vital Signs (Past 12 Hours) Vital Signs Temp Pulse Pulse Resp BP BP Pulse Ox 01/10/21 18:32 37 C 115 H 116/74 100 01/10/21 18:00 37 C 112 H 16 109/66 01/10/21 16:55 36.8 C 116 H 16 116/78 99 01/10/21 16:54 116 H 16 116/78 99 01/10/21 16:31 114 H 22 97 01/10/21 16:30 37.2 C 116 H 18 112/75 98 01/10/21 16:20 118 H 11 L 98 01/10/21 16:15 37.3 C 119 H 8 L 112/72 98 01/10/21 16:10 117 H 19 98 01/10/21 16:01 117 H 19 99 01/10/21 16:00 37.1 C 117 H 19 122/76 98 01/10/21 15:50 111 H 21 98 01/10/21 15:45 110 H 16 108/75 99 01/10/21 15:40 111 H 23 98 01/10/21 15:31 110 H 17 98 01/10/21 15:30 107 H 16 112/72 98 01/10/21 15:20 109 H 16 99 01/10/21 15:15 106 H 120/67 98 01/10/21 15:10 36.9 C 110 H 17 123/76 98 01/10/21 15:01 111 H 19 99 01/10/21 15:00 113 H 18 123/76 99 01/10/21 14:50 117 H 99 01/10/21 14:45 103 H 119/74 100 01/10/21 14:40 104 H 99 01/10/21 14:31 103 H 18 99 01/10/21 14:30 103 H 124/81 98 01/10/21 14:20 107 H 23 98 01/10/21 14:15 107 H 118/81 99 01/10/21 14:10 37.3 C 110 H 20 125/80 99 01/10/21 14:01 105 H 17 99 01/10/21 14:00 105 H 15 125/80 99 01/10/21 13:50 106 H 14 99 01/10/21 13:45 102 H 18 114/80 97 01/10/21 13:41 104 H 20 99 01/10/21 13:40 104 H 18 117/75 98 01/10/21 13:35 105 H 14 111/74 98 01/10/21 13:31 106 H 17 100 01/10/21 13:30 100 H 17 117/71 99 01/10/21 13:25 36.9 C 101 H 16 110/71 99 01/10/21 13:20 101 H 19 117/75 99 01/10/21 13:16 101 H 16 99 01/10/21 13:15 104 H 18 110/72 99 01/10/21 13:11 107 H 18 99 01/10/21 13:10 36.9 C 104 H 17 114/72 100 01/10/21 13:01 104 H 19 99 01/10/21 13:00 104 H 19 115/74 99 01/10/21 12:40 103 H 22 100 01/10/21 12:30 105 H 16 100 01/10/21 12:20 108 H 20 100 01/10/21 12:17 108 H 19 97 01/10/21 12:14 105 H 26 H 123/80 100 01/10/21 10:21 37.2 C 125 H 20 103/50 L 100 Code Status & VTE Plan VTE Prophylaxis Plan VTE Prophylaxis will be ordered: Yes PG Care Time/CCT Total # of Minutes Spent Total Time Spent with Patient: Total time spent is greater than 50% in coordination of care (as documented) at patient's floor/unit and/or counseling patient: Coding Level of Care Code 14357 Initial Inpt Care Lvl 3 Diagnoses UTI (urinary tract infection) N39.0 Bladder tumor D49.4 Anemia D64.9 Thrombocytosis D47.3 DVT prophylaxis Z29.9
[2021-01-10] MEDS: MoRPHine SULFATE CR 15 MG TABCR PO SCH (20:50)
[2021-01-10 22:35] LABS: Appearance Urine Clear (Clear); Bacteria Urine Automated 1+ (Negative); Bilirubin Urine Negative (Negative); Blood Urine Negative (Negative); Color Urine Yellow; Epithelial Cell Urine Auto >30 /lpf (0-5); Glucose Urine UA Negative (Negative); Ketones Urine Negative (Negative); Leukocyte Esterase Urine 2+ (Negative); Nitrite Urine Negative (Negative); RBC Urine Automated 0-4 /hpf (0-4); Specific Gravity Urine 1.027 (1.000-1.030); Urobilinogen Urine Negative (Negative); pH Urine 7.5 (4.5-7.5)
[2021-01-10 22:40] LABS: Protein Urine 1+ (Negative)
[2021-01-11] MEDS: HYDROCODONE/ACETAMOPHEN 5/325MG TAB PO PRN ×2 (02:15→06:21)
[2021-01-11] MEDS: PIPERACILLIN/TAZOBACTAM 3.375 GM in DEXTROSE 5% 100 ML IV SCH ×3 (02:17→17:48)
[2021-01-11] MEDS: ONDANSETRON INJ 2 MG/ML 2 ML VIAL IV PRN ×2 (02:22→06:22)
--- NOTE | 2021-01-11 06:52 | XRay Report ---
XR chest 1V portable HISTORY: 45 years-old Male PICC placement status post placement of a left-sided PICC COMPARISON: Chest radiograph 11/19/2020, CTA chest 11/25/2020 TECHNIQUE: Portable AP view of the chest FINDINGS: Cardiomediastinal and hilar silhouettes are within normal limits. Left-sided PICC is noted with dista l tip terminating in the expected location of the SVC brachiocephalic confluence. No pneumothorax, pl eural effusion or overt pulmonary edema. Mild right hemidiaphragmatic elevation. No definite airspace consolidation. Bones appear grossly intact. A catheter projects over the abdominal right upper quadr ant. IMPRESSION: 1. Status post placement of a left-sided PICC with distal tip terminating in the expected location of the SVC brachiocephalic confluence. 2. No pneumothorax. ACT 112: Negative or not required by law. The above report was generated using voice recognition software. It may contain grammatical, syntax o r spelling errors. Electronically signed by: Cipriano Duran M.D. 01/11/2021 6:50 AM
[2021-01-11 07:01] LABS: Hematocrit (blood only) 29.1 % (42-52); Hemoglobin 9.6 g/dL (14.0-18.0); Mean Corpuscular Hemoglobin 26.4 pg (25-34); Mean Corpuscular Volume 80.2 fL (80-100); Platelet Count 795 K/uL (130-400); RDW Coefficient of Variation 17.4 % (11.5-14.5); RDW Standard Deviation 51.5 fL (36.4-46.3); Red Blood Count 3.63 M/uL (4.7-6.1); White Blood Count 21.73 K/uL (4.8-10.8)
[2021-01-11 07:08] LABS: Albumin Level 1.8 gm/dl (3.4-5.0); BUN Creatinine Ratio 8.2 (10-20); Calcium 8.7 mg/dl (8.5-10.1); Est GFR (African American) 97.3; Magnesium 2.5 mg/dl (1.8-2.4); Potassium 4.3 mmol/L (3.5-5.1)
[2021-01-11 07:11] LABS: Albumin Globulin Ratio 0.4 (0.9-2); Bilirubin,Total 0.5 mg/dl (0.2-1); Ferritin 827.7 ng/ml (8-388); Globulin 4.9 gm/dl (2.5-4.0); Total Protein 6.7 gm/dl (6.4-8.2)
[2021-01-11 07:15] LABS: Folate (Folic Acid) > 20.00 ng/ml (>5.38); Vitamin B12 1018 pg/ml (193-986)
--- NOTE | 2021-01-11 09:23 | Hospitalist Progress Note ---
Date of Service January 11, 2021 Assessment & Plan (1) UTI (urinary tract infection): Presumed cause of fever, weakness at the half-way given he had felt well until switching to oral abx 1 week ago. Of note, per prior records, his WBC was also ~20 when he was discharged from [facility], so this appears to be stable. - Cultures taken from his Lim catheter (which has been switched subsequently). - Right nephrostomy tube bag sample ordered, but so far not done. Will reach out to RN. (This would obviously be after abx given.) - Blood cultures drawn in the ED - Continue Zosyn started in the ED; adjust per culture results (2) Bladder tumor: Recently discharged from [facility] after colectomy, ileostomy, and right nephrostomy tube. The patient was discussed with Dr. John Woo from [facility] who felt there was no surgical intervention warranted and therefore the patient did not warrant transfer back to [place]. From my discussion with him, medical oncology was not involved in the patient's care there, and therefore he does not have a primary oncologist as far as I can tell. - Consult oncology - Consult palliative care - Continue morphine ER, added [place] PRN (3) Anemia: Hgb was ~ 8 - 9 during prior admission in 11/2020, but this was before major surgery at [facility]. Anemia is microcytic, indicating iron deficiency. No sign of acute bleed at present. - ED ordered 2 units of PRBCs, pt given iron infusion also as iron is very low, anemia likely anemia of chronic disease - (4) Thrombocytosis: Plts were 846 on admission. Presumably reactive due to cancer & anemia. 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 The patient's pain is difficult to control has been seen by palliative care the pain is multifactorial we will continue to attempt to control pain with a recipe of adjunctive medications however this patient may eventually benefit from like something like a celiac block or something with pain management if we are unable to control his pain successfully (6) DVT prophylaxis: Lovenox 40 mg SQ daily -> No overt signs of bleeding, and given his cancer, he is high risk for VTE. Continue for now. Admission and Anticipated Discharge Date Admission Date: January 10, 2021 Subjective pt is complaining of some pain rated 5/10, pt has been seem by multiple prov iders today all with little suggestions over supportive care and treatement of infection and SIRS. 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, will likely have recurrent infections and will have ID opinion of how to proceed thru the future Review of Systems Review of Systems: Mild distress and fatigue no headache, blurry or double vision no speech or swallowing issues no chest pain, pressure or palpitations no shortness of breath, cough or wheezes abdominal pain, central lower abdomen, mild nausea without vomiting, Irrigation of his Lim no focal joint pain or swelling mild back pain, CVA tenderness or radicular pain no bruising, bleeding or rashes no focal signs of weakness or numbness or altered sensation no complaints of anxiety or depression.. Physical Exam Physical Exam: The patient appeared well nourished and normally developed. Vital signs as documented. Head exam is normocephalic atraumatic no scleral icterus Neck is without JVD, thyromegaly, or carotid bruits. Lungs are clear to auscultation, no focal loss of breath sounds Cardiac exam, Rhythm is regular.. No murmurs, rubs or gallops. Abdominal exam reveals ileostomy and colostomy bag normal bowel sounds, soft diffusely mildly tender worse with palpation Right nephrostomy tube is present chronic Lim catheter is also present Extremities are nonedematous and both pedal pulses are present Neurologic exam is alert and oriented, no focal loss of strength or sensation Skin is without bruises or rashes Psychologically is without concerns for anxiety or depression Results & Data Results & Data ([facility]) Vital Signs (Past 12 Hours) Vital Signs Temp Pulse Resp BP Pulse Ox 01/11/21 07:36 98.2 F 107 H 16 115/73 97 01/10/21 22:51 98.4 F 95 H 16 124/78 99 PG Care Time/CCT Total # of Minutes Spent Total Time Spent with Patient: Total time spent is greater than 50% in coordination of care (as documented) at patient's floor/unit and/or counseling patient: Coding Level of Care Code 17711 Subseq Hosp Care Lvl 3 Diagnoses UTI (urinary tract infection) N39.0 Bladder tumor D49.4 Anemia D64.9 Thrombocytosis D47.3 Cancer-related pain G89.3 DVT prophylaxis Z29.9
[2021-01-11] MEDS: PANTOprazole 40 MG TAB PO SCH (09:31)
[2021-01-11] MEDS: CHOLECALCIFEROL 1,000 UNITS 25 MCG TAB PO SCH (09:31)
[2021-01-11] MEDS: MoRPHine SULFATE CR 15 MG TABCR PO SCH (09:45)
[2021-01-11] MEDS: ENOXAPARIN INJ 40 MG/0.4 ML SYR SQ SCH (09:58)
[2021-01-11] MEDS ORDERED: IRON SUCROSE 200 MG in 0.9 % SODIUM CHLORIDE 100 ML IV ONE (10:15)
--- NOTE | 2021-01-11 10:32 | Palliative Care Consultation ---
Date of Consultation January 11, 2021 Assessment & Plan (1) Pelvic pain in male: We discussed morphine extended release as raising baseline of pain relief and reminded him that he will not feel relief after taking medication. With his complaint of constant pain, a long acting opioid is definitely indicated. We can increase hydrocodone to 10/325 for greater and more sustained analgesia as needed. This would still put him in the range of 10-20% OME of long acting opioid for breakthrough pain. I did discuss with him that often physical pain is exacerbated by other types of pain, such as emotional or existential pain. (2) Palliative care encounter: We reviewed his CT done yesterday and poor prognosis with fistula, progressive cancer and recurrent infections. We discussed possibility of shifting focus to comfort from focus on disease management. He has considered this but wants to think about it some more before making the decision. We discussed futility of some treatments, including CPR which would not have the desired affect of returning him to his prior function in the event that he had cardiopulmonary arrest. He will consider this. Palliative care will follow to assist with pain management and goals of care. (3) Bladder tumor: History of Present Illness Reason for Consultation: goals of care Requesting Physician: Dr. Biggs Attending Physician: Zeyad Bowie MD History of Present Illness 45 yo gentleman from [facility], [place] with h/o bladder cancer. He has had left nephrectomy, cystectomy, prostatectomy and neobladder formation in the past. He has had recurrent UTIs with a colovesicular fistula and had surgery at [facility] earlier this year with colectomy and ileostomy and right nephrostomy tube. He was also hospitalized in November with covid pneumonia. He was febrile with leukocytosis at [facility] and is admitted for UTI. He complains of pain that feels like pressure in his pelvis that is constant. It is worse with sitting and somewhat relieved with lying down. He does notice some relief with hydrocodone but feels that it is short acting. He has been on extended release morphine as well. He rates the pain as 10/10 and gets relief to 5/10 with hydrocodone. He tells me that 5/10 is a tolerable pain level for him. He denies constipation. Allergies Allergy/AdvReac Type Severity Reaction Status Date / Time No Known Allergies Allergy Verified 01/10/21 12:11 Home Medications Medication Instructions Recorded Confirmed Type cholecalciferol (vitamin D3) 25 mcg PO DAILY 11/19/20 01/10/21 History [Vitamin D3] enoxaparin 40 mg SUBCUT DAILY 01/10/21 01/10/21 History food supplemt, lactose-reduced 1 ea PO TID 01/10/21 01/10/21 History [Ensure Plus] morphine 30 mg PO Q12H 01/10/21 01/10/21 History pantoprazole 40 mg PO DAILY 01/10/21 01/10/21 History pedi multivit [id number] K1 1 tab PO DAILY 01/10/21 01/10/21 History [Cerovite Jr] Patient History Medical History Bladder tumor UTI (urinary tract infection) Surgical History History of bladder surgery Neobladder anastomosis Family History Father Hypertension Social History Smoking Status: Former smoker Second Hand Exposure: No; Hx Alcohol Use: No Hx Substance Use: No Preferred Language: Bermudian Communication Ability: Effective Trading Specialist Required: No Beliefs That Will Affect Care: None Current Living Situation: Other Current Living Situation Comment: correctional facility Other Information That Helps Us Care for You: No Feels Safe at Home: Yes Safety Concerns: Feels Safe At This Time Assistive Devices: None Review of Systems Review of Systems: [place] Symptom Assessment Scale Pain 3/3 Dyspnea 0/3 Nausea 0/3 Fatigue 0/3 Anorexia 0/3 Drowsiness 0/3 Physical Exam Constitutional: + uncomfortable facial grimace ENMT: Mouth: + dry oral mucous membranes Respiratory: normal respiratory effort; no labored breathing Gastrointestinal (Abdomen): colostomy liquid brown stool Musculoskeletal: Extremities: extremities normal to inspection Skin: warm and dry Psychiatric: Orientation: alert and oriented x 3 Affect: euthymic affect Results & Data ([facility]) Vital Signs (Past 12 Hours) Vital Signs Temp Pulse Resp BP Pulse Ox 01/11/21 07:36 98.2 F 107 H 16 115/73 97 01/10/21 22:51 98.4 F 95 H 16 124/78 99 PG Care Time/CCT Total # of Minutes Spent Total Time Spent with Patient: Total time spent is greater than 50% in coordination of care (as documented) at patient's floor/unit and/or counseling patient: total time spent 65 minutes with more than 50% of time spent on symptom management, code status and goals of care. Coding Level of Care Code 09628 Inpt Consult Level 3 Diagnoses Pelvic pain in male R10.2 Palliative care encounter Z51.5 Bladder tumor D49.4
[2021-01-11] MEDS: HYDROcodone/ACETAMINOPHEN 10/325 TAB PO PRN ×3 (11:39→21:14)
--- NOTE | 2021-01-11 14:12 | Consultation ---
Date of Consultation January 11, 2021 Assessment & Plan (1) Bladder tumor: 45 y/o immate with hx of high grade muscle invasive bladder cancer who underwent dyan-adjuvant chemotherapy (cis-gem) followed by radical cisto- prostatectomy and dyan-bladder formation in 2018. Patient recently underwent diverting ileostomy, colostomy with percutaneous nephrostomy tube due to a neobladder breakdown and fistulization of adjacent bowel. It is unclear whether patient has biopsy proven tumor recurrence or not. Will review his recent hospitalization record from [facility]. - no acute oncologic intervention is warranted during this hospitalization - treatment underlying infection, anemia, malnutrition - may need a followup imaging like a PET/CT as an outpatient - followup as an outpatient with Dr. Alvarez from [facility] - thank you for the courtesy of this consultation. Feel free to contact if any questions (2) Thrombocytosis: - most likely reactive due to recent surgery, inflammation and iron deficiency - continue to monitor - DVT prophylaxis as per primary team (3) Microcytic anemia: - transfuse blood as needed for symptomatic anemia - iron study indicates both elements of iron deficiency (low serum iron and iron saturation) and chronic inflammation (elevated ferritin) History of Present Illness Reason for Consultation: Bladder Cancer Attending Physician: Zeyad Bowie MD History of Present Illness 45 y/o male with hx of bladder cancer who presents with fatigue, fevers, and weakness. Patient underwent dyan-adjuvant chemotherapy followed by radical cystectomy, left nephrectomy, prostatectomy, and neobladder formation at [facility] in 2018. He was admitted in 11/2020 with Covid 19 and seen by urology team who recommended return to [facility] for correction of a colovesicular fistula. Subsequently patient underwent at [facility] a diverting ileostomy, colostomy and right nephrostomy tube. He was discharged approx. 2 weeks later on IV antibiotics. Patient finished IV antibiotics about 1 week ago and was transitioned to oral antibiotics. However, patient became ill and febrile prompting him for ED evaluation. Patient is currently being treated for UTI. Seen and examined at bedside. Lab data and imaging studies were reviewed. Allergies Allergy/AdvReac Type Severity Reaction Status Date / Time No Known Allergies Allergy Verified 01/10/21 12:11 Home Medications Medication Instructions Recorded Confirmed Type cholecalciferol (vitamin D3) 25 mcg PO DAILY 11/19/20 01/10/21 History [Vitamin D3] enoxaparin 40 mg SUBCUT DAILY 01/10/21 01/10/21 History food supplemt, lactose-reduced 1 ea PO TID 01/10/21 01/10/21 History [Ensure Plus] morphine 30 mg PO Q12H 01/10/21 01/10/21 History pantoprazole 40 mg PO DAILY 01/10/21 01/10/21 History pedi multivit [id number] K1 1 tab PO DAILY 01/10/21 01/10/21 History [Cerovite Jr] Patient History Medical History Bladder tumor UTI (urinary tract infection) Surgical History History of bladder surgery Neobladder anastomosis Family History Father Hypertension Social History Smoking Status: Former smoker Second Hand Exposure: No; Hx Alcohol Use: No Hx Substance Use: No Preferred Language: Cambodian Communication Ability: Effective Mycologist Required: No Beliefs That Will Affect Care: None Current Living Situation: Other Current Living Situation Comment: correctional facility Other Information That Helps Us Care for You: No Feels Safe at Home: Yes Safety Concerns: Feels Safe At This Time Assistive Devices: None Review of Systems Review of Systems: Constitutional: Negative for weight loss, night sweats. FEVER, WEAKNESS Eyes: Negative for event change of vision ENT: Negative for epistaxis, nasal discharge, sore throat, or deafness Cardiovascular: Negative for anginal type chest pain, palpitations, dizziness, diaphoresis Respiratory: Negative for new shortness of breath, hemoptysis, or purulent cough Gastrointestinal: Negative for diarrhea, hematemesis, melena, nausea, vomiting, or dyspepsia Integumentary (skin): Negative for rash or jaundice discoloration Genitourinary: Negative for urinary frequency, hematuria, or dysuria Neurological: Negative for weakness, seizure activity, headache, or dizziness Lymphatic/Hematologic: Negative for petechiae, bleeding or new adenopathy Musculoskeletal: Negative for new joint or back pain Allergic/Immunologic: Negative for unusual rash or pruritus Physical Exam Physical Exam: Constitutional: Vitals are stable CACHECTIC Eyes: Eyes are ROCK EOMI without conjunctival erythema or icterus. ENT: External examination was negative for masses. Neck: Negative for masses or palpable thyromegaly. Respiratory: Lung sounds were generally clear bilaterally. Cardiovascular: Heart was RRR without significant murmur, gallops or rubs. Gastrointestinal: The abdomen was soft with normal bowel sounds. ILEOSTOMY AND COLOSTOMY BAG+ Lymphatic system: There was no palpable peripheral lymphadenopathy. Musculoskeletal System: The musculoskeletal system seemed concordant with age. Skin: The skin was negative for jaundice. RIGHT NEPHROSTOMY TUBE+ Neurologic Exam: The exam was negative for any focal findings. Extremities: Negative for edema or erythema Results & Data ([facility]) Vital Signs (Past 12 Hours) Vital Signs Temp Pulse Resp BP Pulse Ox 01/11/21 07:36 36.8 C 107 H 16 115/[address] ABDOMEN PELVIS ON 01/10/21 IMPRESSION: 1. Difficult study to interpret 2. Postsurgical changes of a prior cystectomy prostatectomy and neobladder creation 3. Postsurgical changes are prior left nephrectomy 4. Interval placement of a right-sided percutaneous nephrostomy 5. Interval placement of a right lower quadrant ileostomy and left lower quadrant small bowel colostomy 6. Markedly abnormal appearance of the pelvis. The findings are likely secondary to a breakdown of the neobladder wall and fistulization with adjacent bowel. The neobladder and pelvic area is studded with soft tissue nodule suspicious for carcinoma. 7. Mild inguinal and aortocaval lymphadenopathy
--- NOTE | 2021-01-11 14:21 | Urology Consultation ---
Date of Consultation January 11, 2021 Assessment & Plan (1) UTI (urinary tract infection): (2) Pelvic pain in male: (3) Bladder tumor: 45 year-old male patient, with multiple comorbidities, admitted with weakness and fever secondary to presumed UTI. -Plan of care reviewed with Dr. Ji. -Patient with complex history including bladder cancer status post cystectomy, left nephrectomy, prostatectomy, and neobladder formation in 2018. -Underwent recent diverting ileostomy, colostomy, and percutaneous right nephrostomy tube placement at [facility] in November. -Patient afebrile. -Labs reviewed - white count elevated, creatinine stable. -Imaging reviewed with Dr. Ji - pelvic anatomy very challenging to accurately discern - question of malignant recurrence/fistulas. -Given the prior surgeries, we have limits on our options at this facility. -Recommend continued supportive care and antibiotic therapy. -If any decline in overall status - strongly consider referral to a tertiary center (i.e. [facility]). -Will continue to follow from a distance. Please contact us with additional questions, concerns, or changes in patient status. History of Present Illness Reason for Consultation: UTI, colovesicular/neobladder fistula Attending Physician: Zeyad Bowie MD History of Present Illness 45 year-old male patient, with history of bladder cancer diagnosed in 2018 s/p left nephrectomy, cystectomy/prostatectomy with neobladder, UTI, anemia, constipation, and COVID-19 presented to the hospital from [facility] due to worsening abdominal pain with associated weakness/fatigue and fevers. Patient recently underwent two surgical procedures at [facility] in November of this year (first procedure he believes was December 10, 2020) which included diverting ileostomy, colostomy, and percutaneous right nephrostomy tube placement. He reports he was discharged to [facility] with 2 weeks of IV antibiotic therapy, then transitioned to oral antibiotic therapy. Once transitioned to oral, he began to decline which prompted ER evaluation. Past medical and surgical history reviewed. Patient was evaluated by our service in November for colovesicular/neobladder fistula, it was recommended at that time to be evaluated for colovesical fistula repair at tertiary center. Operative reports from [facility] not available for review for most recent procedure in November. Chart review: Afebrile Wbc 21.73 (previously 21.40) Hgb 9.6 (previously 6.3) - received 2 units PRBC. Creatinine 1.07 Urinalysis on admission +3 leukocytes, >30 wbc, 10-30 rbc, +1 bacteria. Urine culture 01/10 - More than three types organisms, all high counts mixed probable skin lei. Preliminary blood cultures no growth after [address] abd/pelvis with oral and IV contrast - IMPRESSION: 1. Difficult study to interpret 2. Postsurgical changes of a prior cystectomy prostatectomy and neobladder creation 3. Postsurgical changes are prior left nephrectomy 4. Interval placement of a right-sided percutaneous nephrostomy 5. Interval placement of a right lower quadrant ileostomy and left lower quadrant small bowel colostomy 6. Markedly abnormal appearance of the pelvis. The findings are likely secondary to a breakdown of the neobladder wall and fistulization with adjacent bowel. The neobladder and pelvic area is studded with soft tissue nodule suspicious for carcinoma. 7. Mild inguinal and aortocaval lymphadenopathy. Patient examined at beside. He is alert, awake, comfortable. Feels better since hospital admission. Currently denies fevers or chills. Denies nausea or vomiting. Has been ambulating without dizziness/lightheadedness. Tolerating da silva catheter and nephrostomy tube, denies hematuria. Reports pain is tolerable with PRN pain medications. Pain mainly located in pelvic area. Patient did have a virtual consultation with an oncologist through [facility], discussed starting chemotherapy at that time. Also had palliative care consult today. Denies additional urologic concerns today. Allergies Allergy/AdvReac Type Severity Reaction Status Date / Time No Known Allergies Allergy Verified 01/10/21 12:11 Home Medications Medication Instructions Recorded Confirmed Type cholecalciferol (vitamin D3) 25 mcg PO DAILY 11/19/20 01/10/21 History [Vitamin D3] enoxaparin 40 mg SUBCUT DAILY 01/10/21 01/10/21 History food supplemt, lactose-reduced 1 ea PO TID 01/10/21 01/10/21 History [Ensure Plus] morphine 30 mg PO Q12H 01/10/21 01/10/21 History pantoprazole 40 mg PO DAILY 01/10/21 01/10/21 History pedi multivit [id number] K1 1 tab PO DAILY 01/10/21 01/10/21 History [Larisa Lucia] Patient History Medical History Bladder tumor UTI (urinary tract infection) Surgical History History of bladder surgery Neobladder anastomosis Family History Father Hypertension Social History Smoking Status: Former smoker Second Hand Exposure: No; Hx Alcohol Use: No Hx Substance Use: No Preferred Language: [place] Communication Ability: Effective Security Management Specialist Required: No Beliefs That Will Affect Care: None Current Living Situation: Other Current Living Situation Comment: correctional facility Other Information That Helps Us Care for You: No Feels Safe at Home: Yes Safety Concerns: Feels Safe At This Time Assistive Devices: None Review of Systems Constitutional: as per Subjective / HPI Eyes: no problem reported Ear, Nose, Mouth, Throat: no dizziness Respiratory: no cough and no dyspnea Cardiovascular: no chest pain and no edema Gastrointestinal: as per Subjective / HPI Genitourinary: + as per Subjective / HPI Musculoskeletal: as per Subjective / HPI Neurologic: no dizziness Endocrine: as per Subjective / HPI and + fatigue Hematologic / Lymphatic: no easy bleeding and no easy bruising Physical Exam Constitutional: + thin, cooperative and comfortable; no acute distress ENMT: Ears: no external ear abnormality Nose: no external nose abnormality Neck: normal visual inspection and trachea midline Respiratory: normal respiratory effort and able to speak in complete sentences; no respiratory distress and no audible wheezes Cardiovascular: Extremities: no calf tenderness and no edema Gastrointestinal (Abdomen): Inspection/Auscultation: abdomen normal to inspection; abdomen not distended Percussion/Palpation: + abdomen tender (Diffuse tenderness to lower abdomen. ) and abdomen soft; no guarding Patient with midline abdominal incision. RUQ ileostomy intact. LUQ fistula draining small amount of mucous drainage. Musculoskeletal: Moves all extremities without difficulty. Skin: No visible rashes, lesions, or wounds noted. Neurologic: moves all extremities and awake Psychiatric: Orientation: alert, oriented x 3 and cooperative Affect: euthymic affect Genitourinary: Right nephrostomy tube intact, draining concentrated yellow urine. No erythema to insertion site. Da Silva catheter intact draining minimal concentrated yellow urine. Results & Data ([facility]) Vital Signs (Past 12 Hours) Vital Signs Temp Pulse Resp BP Pulse Ox 01/11/21 07:36 36.8 C 107 H 16 115/73 97 PG Care Time/CCT Total # of Minutes Spent Total Time Spent with Patient: Total time spent is greater than 50% in coordination of care (as documented) at patient's floor/unit and/or counseling patient: Coding Level of Care Code 03318 Inpt Consult Level 4 Diagnoses UTI (urinary tract infection) N39.0 Pelvic pain in male R10.2 Bladder tumor D49.4
[2021-01-11] MEDS: MoRPHine SULFATE CR 60 MG TABCR PO SCH (17:58)
[2021-01-11] MEDS: ACETAMINOPHEN 500 MG TAB PO SCH (21:14)
[2021-01-12] MEDS: PIPERACILLIN/TAZOBACTAM 3.375 GM in DEXTROSE 5% 100 ML IV SCH ×3 (02:07→17:22)
[2021-01-12] MEDS: HYDROcodone/ACETAMINOPHEN 10/325 TAB PO PRN ×2 (02:08→13:35)
[2021-01-12] MEDS: MoRPHine SULFATE CR 60 MG TABCR PO SCH ×2 (06:09→17:29)
[2021-01-12] MEDS: ENOXAPARIN INJ 40 MG/0.4 ML SYR SQ SCH (08:01)
[2021-01-12] MEDS: MULTIVITAMIN CHEWABLE TAB PO SCH (08:02)
[2021-01-12] MEDS: PANTOprazole 40 MG TAB PO SCH (08:02)
[2021-01-12] MEDS: ACETAMINOPHEN 500 MG TAB PO SCH ×4 (08:02→21:22)
[2021-01-12] MEDS: CHOLECALCIFEROL 1,000 UNITS 25 MCG TAB PO SCH (08:03)
--- NOTE | 2021-01-12 11:24 | Urology Progress Note ---
Date of Service January 12, 2021 Assessment & Plan (1) Bladder tumor: Very unfortunate 45-year-old gentleman with a history of muscle invasive bladder cancer status post gemcitabine and cisplatin chemotherapy followed by radical cystoprostatectomy, left nephrectomy and neobladder formation in [place] Unfortunately had numerous issues which prompted subsequent diverting ileostomy and right nephrostomy tube His kidney function is excellent, he responded very well to a blood transfusion yesterday He has had a consultation from infectious disease to assist with antibiotic management His abdominal and pelvic anatomy is extremely difficult to discern secondary to inflammatory changes From the story he relates it sounds as though he has had recurrent, biopsy- proven malignant disease of the pelvishoping to have a immunotherapy at some point in the near future Acutely, there are limited options at our facilityI would recommend continued antibiotic and supportive management Uncertain there is any role for any acute surgery now regardless, but if we can improve his infectious issues that he may be a candidate for some immunotherapy and potentially repeat evaluation in the future to see if his neobladder could potentially be removed. He is very realistic about the challenges of the surgery of that nature and the unlikely odds of ever having such a surgery From a standpoint, we will plan to follow peripherally, no indication for any acute interventions from our side Admission and Anticipated Discharge Date Admission Date: January 10, 2021 Subjective Unfortunate 45-year-old gentleman with an extensive surgical history including prior radical cystoprostatectomy, left nephrectomy, and neobladder - complications from the neobladder leading to right nephrostomy tube, diverting ileostomy Previously with a wound VAC on his midline incision, currently simple wet-to-dry dressings. Transfused yesterday after admission Reviewed records from his prior hospitalizations in [place] Lengthy discussion today about his current statussomewhat unclear to me whether or not he has a definitive diagnosis of recurrent disease in the pelvis or if he simply has infection from fistulas He believes the biopsy was performed in [place] documenting recurrent malignancytentative plan for immunotherapy in the future, however he certainly needs to have his infectious issues controlled prior to being able to start any immunotherapy Fortunately, his creatinine is stable and normalhe has a well-positioned right nephrostomy tube draining clear urine He is in surprisingly good spirits given the severity of his disease He reports that he feels much better today and is moving around much better than he was previously Appetite returning Physical Exam Physical Exam: Midline incision with approximately 1-1/2 cm gap, dressing in place covering the gap Right side ileostomy, right nephrostomy Fistula? On the left abdomen (very limited output) Results & Data ([facility]) Vital Signs (Past 12 Hours) Vital Signs Temp Pulse Pulse Resp BP Pulse Ox 01/12/21 08:30 98 H 01/12/21 07:05 36.9 C 116 H 18 120/78 99 PG Care Time/CCT Total # of Minutes Spent Total Time Spent with Patient: Total time spent is greater than 50% in coordination of care (as documented) at patient's floor/unit and/or counseling patient: Coding Level of Care Code 24056 Subseq Hosp Care Lvl 3 Diagnoses Bladder tumor D49.4
--- NOTE | 2021-01-12 17:03 | Hospitalist Progress Note ---
Date of Service January 12, 2021 Assessment & Plan (1) UTI (urinary tract infection): Presumed cause of fever, weakness at the [facility] given he had felt well until switching to oral abx 1 week ago. Of note, per prior records, his WBC was also ~20 when he was discharged from [facility], so this appears to be stable. - Cultures taken from his Lim catheter (which has been switched subsequently). - Right nephrostomy tube bag sample ordered, but so far not done. Will reach out to RN. (This would obviously be after abx given.) - Blood cultures drawn in the ED are negative to date - Continue Zosyn started in the ED; adjust per culture results (2) Bladder tumor: Recently discharged from [facility] after colectomy, ileostomy, and right nephrostomy tube. The patient was discussed with Dr. John Woo from [facility] who felt there was no surgical intervention warranted and therefore the patient did not warrant transfer back to [place]. From my discussion with him, medical oncology was not involved in the patient's care there, and therefore he does not have a primary oncologist as far as I can tell. - Consult oncology no further immediate theapy needed - Consult palliative care, pt is not ready to pursue palliative care at this time - Continue morphine ER, added Bantry PRN (3) Anemia: Hgb was ~ 8 - 9 during prior admission in 11/2020, but this was before major surgery at [facility]. Anemia is microcytic, indicating iron deficiency. No sign of acute bleed at present. -s/p 2 units of PRBCs, pt given iron infusion also as iron is very low, anemia likely anemia of chronic disease - (4) Thrombocytosis: Plts were 846 on admission. Presumably reactive due to cancer & anemia. 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 The patient's pain is difficult to control has been seen by palliative care the pain is multifactorial we will continue to attempt to control pain with a recipe of adjunctive medications however this patient may eventually benefit from like something like a celiac block or something with pain management if we are unable to control his pain successfully increased morphine XR on pm of 01/11 (6) DVT prophylaxis: Lovenox 40 mg SQ daily -> No overt signs of bleeding, and given his cancer, he is high risk for VTE. Continue for now. Admission and Anticipated Discharge Date Admission Date: January 10, 2021 Subjective Unfortunate 45-year-old gentleman with an extensive surgical history including prior radical cystoprostatectomy, left nephrectomy, and neobladder - complications from the neobladder leading to right nephrostomy tube, diverting ileostomy Previously with a wound VAC on his midline incision, currently simple wet-to-dry dressings. Transfused on admission Reviewed records from his prior hospitalizations in [place] Pt is understanding that there is not really any surgery that is indicated and will help his predicament, he is still hopeful that he may still have some continued chemotherapy or immunotherapy. He understands that we are awaiting ID for discussion if intermission coordinator antibitoics are needed Review of Systems Review of Systems: Mild distress and fatigue no headache, blurry or double vision no speech or swallowing issues no chest pain, pressure or palpitations no shortness of breath, cough or wheezes abdominal pain, central lower abdomen, mild nausea without vomiting, Irrigation of his Lim no focal joint pain or swelling mild back pain, CVA tenderness or radicular pain no bruising, bleeding or rashes no focal signs of weakness or numbness or altered sensation no complaints of anxiety or depression.. Physical Exam Physical Exam: The patient appeared well nourished and normally developed. Vital signs as documented. Head exam is normocephalic atraumatic no scleral icterus Neck is without JVD, thyromegaly, or carotid bruits. Lungs are clear to auscultation, no focal loss of breath sounds Cardiac exam, Rhythm is regular.. No murmurs, rubs or gallops. Abdominal exam reveals ileostomy and colostomy bag normal bowel sounds, soft diffusely mildly tender worse with palpation Right nephrostomy tube is present chronic Lim catheter is also present Extremities are nonedematous and both pedal pulses are present Neurologic exam is alert and oriented, no focal loss of strength or sensation Skin is without bruises or rashes Psychologically is without concerns for anxiety or depression Results & Data Results & Data ([facility]) Vital Signs (Past 12 Hours) Vital Signs Temp Pulse Pulse Resp BP Pulse Ox 01/12/21 15:40 99.1 F 118 H 18 102/66 97 01/12/21 08:30 98 H 01/12/21 07:05 98.4 F 116 H 18 120/78 99 PG Care Time/CCT Total # of Minutes Spent Total Time Spent with Patient: Total time spent is greater than 50% in coordination of care (as documented) at patient's floor/unit and/or counseling patient: Coding Level of Care Code 83174 Subseq Hosp Care Lvl 3 Diagnoses UTI (urinary tract infection) N39.0 Bladder tumor D49.4 Anemia D64.9 Thrombocytosis D47.3 Cancer-related pain G89.3 DVT prophylaxis Z29.9
[2021-01-13] MEDS: HYDROcodone/ACETAMINOPHEN 10/325 TAB PO PRN ×3 (01:28→21:25)
[2021-01-13] MEDS: PIPERACILLIN/TAZOBACTAM 3.375 GM in DEXTROSE 5% 100 ML IV SCH ×3 (01:29→17:09)
[2021-01-13] MEDS: MoRPHine SULFATE CR 60 MG TABCR PO SCH ×2 (06:07→17:09)
[2021-01-13] MEDS: CHOLECALCIFEROL 1,000 UNITS 25 MCG TAB PO SCH (08:06)
[2021-01-13] MEDS: PANTOprazole 40 MG TAB PO SCH (08:06)
[2021-01-13] MEDS: ACETAMINOPHEN 500 MG TAB PO SCH ×3 (08:06→21:26)
[2021-01-13] MEDS: ENOXAPARIN INJ 40 MG/0.4 ML SYR SQ SCH (08:06)
[2021-01-13] MEDS: MULTIVITAMIN CHEWABLE TAB PO SCH (08:06)
--- NOTE | 2021-01-13 09:08 | Electrocardiogram Report ---
Test Reason : Blood Pressure : / mmHG Vent. Rate : 108 BPM Atrial Rate : 108 BPM P-R Int : 134 ms QRS Dur : 076 ms QT Int : 336 ms P-R-T Axes : 064 060 060 degrees QTc Int : 450 ms Sinus tachycardia Otherwise normal ECG When compared with ECG of 10-JAN-2021 11:44, No significant change was found Confirmed by Garcia Santana ([id number]) on 01/13/2021 9:08:14 AM Referred By: Klaudia CEBALLOS Confirmed By:Garcia Santana
--- NOTE | 2021-01-13 16:55 | Hospitalist Progress Note ---
Date of Service January 13, 2021 Assessment & Plan (1) UTI (urinary tract infection): Presumed cause of fever, weakness at the [facility] given he had felt well until switching to oral abx 1 week ago. Of note, per prior records, his WBC was also ~20 when he was discharged from [facility], so this appears to be stable. - Cultures taken from his Lim catheter (which has been switched subsequently). - Right nephrostomy tube bag sample ordered, but so far not done. Will reach out to RN. (This would obviously be after abx given.) - Blood cultures drawn in the ED are negative to date - Continue Zosyn started in the ED; adjust per culture results (2) Bladder tumor: Recently discharged from [facility] after colectomy, ileostomy, and right nephrostomy tube. The patient was discussed with Dr. John Woo from [facility] who felt there was no surgical intervention warranted and therefore the patient did not warrant transfer back to [place]. From my discussion with him, medical oncology was not involved in the patient's care there, and therefore he does not have a primary oncologist as far as I can tell. - Consult oncology no further immediate theapy needed - Consult palliative care, pt is not ready to pursue palliative care at this time - Continue morphine ER, added [place] PRN (3) Anemia: Hgb was ~ 8 - 9 during prior admission in 11/2020, but this was before major surgery at [facility]. Anemia is microcytic, indicating iron deficiency. No sign of acute bleed at present. -s/p 2 units of PRBCs, pt given iron infusion also as iron is very low, anemia likely anemia of chronic disease - (4) Thrombocytosis: Plts were 846 on admission. Presumably reactive due to cancer & anemia. 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 The patient's pain is difficult to control has been seen by palliative care the pain is multifactorial we will continue to attempt to control pain with a recipe of adjunctive medications however this patient may eventually benefit from like something like a celiac block or something with pain management if we are unable to control his pain successfully increased morphine XR on pm of 01/11 (6) DVT prophylaxis: Lovenox 40 mg SQ daily -> No overt signs of bleeding, and given his cancer, he is high risk for VTE. Continue for now. Admission and Anticipated Discharge Date Admission Date: January 10, 2021 Subjective Unfortunate 45-year-old gentleman with an extensive surgical history including prior radical cystoprostatectomy, left nephrectomy, and neobladder - complications from the neobladder leading to right nephrostomy tube, diverting ileostomy Previously with a wound VAC on his midline incision, currently simple wet-to-dry dressings. Transfused 2 units prbc on admission Pt is understanding that there is not really any surgery that is indicated and will help his predicament, he is still hopeful that he may still have some continued chemotherapy or immunotherapy. He understands that we are awaiting ID for discussion if intermediate teacher antibiotics are needed Review of Systems Review of Systems: Mild distress and fatigue no headache, blurry or double vision no speech or swallowing issues no chest pain, pressure or palpitations no shortness of breath, cough or wheezes abdominal pain, central lower abdomen, mild nausea without vomiting, Irrigation of his Lim no focal joint pain or swelling mild back pain, CVA tenderness or radicular pain no bruising, bleeding or rashes no focal signs of weakness or numbness or altered sensation no complaints of anxiety or depression.. Physical Exam Physical Exam: The patient appeared well nourished and normally developed. Vital signs as documented. Head exam is normocephalic atraumatic no scleral icterus Neck is without JVD, thyromegaly, or carotid bruits. Lungs are clear to auscultation, no focal loss of breath sounds Cardiac exam, Rhythm is regular.. No murmurs, rubs or gallops. Abdominal exam reveals ileostomy and colostomy bag normal bowel sounds, soft diffusely mildly tender worse with palpation Right nephrostomy tube is present chronic Lim catheter is also present Extremities are nonedematous and both pedal pulses are present Neurologic exam is alert and oriented, no focal loss of strength or sensation Skin is without bruises or rashes Psychologically is without concerns for anxiety or depression Results & Data Results & Data ([facility]) Vital Signs (Past 12 Hours) Vital Signs Temp Pulse Resp BP Pulse Ox 01/13/21 16:16 97.9 F 119 H 18 112/76 99 01/13/21 07:50 98.1 F 95 H 18 109/76 97 PG Care Time/CCT Total # of Minutes Spent Total Time Spent with Patient: Total time spent is greater than 50% in coordination of care (as documented) at patient's floor/unit and/or counseling patient: Coding Level of Care Code 46294 Subseq Hosp Care Lvl 2 Diagnoses UTI (urinary tract infection) N39.0 Bladder tumor D49.4 Anemia D64.9 Thrombocytosis D47.3 Cancer-related pain G89.3 DVT prophylaxis Z29.9
[2021-01-14] MEDS: PIPERACILLIN/TAZOBACTAM 3.375 GM in DEXTROSE 5% 100 ML IV SCH ×3 (02:03→17:59)
[2021-01-14] MEDS: HYDROcodone/ACETAMINOPHEN 10/325 TAB PO PRN ×3 (04:26→20:57)
[2021-01-14] MEDS: MoRPHine SULFATE CR 60 MG TABCR PO SCH ×2 (05:20→17:59)
[2021-01-14] MEDS: MULTIVITAMIN CHEWABLE TAB PO SCH (07:08)
[2021-01-14] MEDS: CHOLECALCIFEROL 1,000 UNITS 25 MCG TAB PO SCH (07:09)
[2021-01-14] MEDS: PANTOprazole 40 MG TAB PO SCH (07:09)
[2021-01-14] MEDS: ACETAMINOPHEN 500 MG TAB PO SCH (07:09)
[2021-01-14] MEDS: ENOXAPARIN INJ 40 MG/0.4 ML SYR SQ SCH (07:10)
[2021-01-14 07:56] LABS: Creatinine Clr Calc Pharmacy 59.7 ml/min; Est GFR (African American) 83.1; Est GFR (Non-African American) 71.7
[2021-01-14 09:14] LABS: Albumin Level 1.9 gm/dl (3.4-5.0); BUN Creatinine Ratio 10.7 (10-20); Bilirubin,Total 0.6 mg/dl (0.2-1); Calcium 9.4 mg/dl (8.5-10.1); Creatinine Clr Calc Pharmacy 61.7 ml/min; Est GFR (African American) 86.5; Est GFR (Non-African American) 74.6; Potassium 4.4 mmol/L (3.5-5.1)
[2021-01-14 09:16] LABS: Albumin Globulin Ratio 0.4 (0.9-2); Globulin 5.4 gm/dl (2.5-4.0); Total Protein 7.3 gm/dl (6.4-8.2)
[2021-01-14 10:03] LABS: Hematocrit (blood only) 31.3 % (42-52); Hemoglobin 10.3 g/dL (14.0-18.0); Mean Corpuscular Hgb Conc 32.9 g/dL (32-36); Mean Corpuscular Volume 81.9 fL (80-100); Mean Platelet Volume 8.1 fL (7.4-10.4); Platelet Count 1125 K/uL (130-400); RDW Standard Deviation 54.4 fL (36.4-46.3); Red Blood Count 3.82 M/uL (4.7-6.1)
--- NOTE | 2021-01-14 10:14 | Hospitalist Progress Note ---
Date of Service January 14, 2021 Assessment & Plan (1) Pelvic pain in male: 45y/o M with PMH significant for metastatic bladder tumor with numerous recent surgical interventions. Fever: -uncertain etiology in the setting of numerous recent surgical procedures. no clear source of infection however multiple points of access potential -WBC this AM of 30, this babb an increase from earlier in admission -ESR >90, CRP 13, Procal 0.52 -Presumed cause of fever, weakness at the halfway given he had felt well until switching to oral abx 1 week ago. Of note, per prior records, his WBC was also ~20 when he was discharged from [facility] -Cultures taken from his Lim catheter (which has been switched subsequently). -Blood cultures drawn in the ED are negative to date -Continue Zosyn at this time -consideration of escalation of antibiotics if no improvement, would start Levaquin and Vancomycin at that time in place of current regimen Bladder tumor: -Recently discharged from [facility] after colectomy, ileostomy, and right nephrostomy tube. -Oncology consulted -working with palliative for pain control Anemia: Hgb was ~ 8 - 9 during prior admission in 11/2020, but this was before major surgery at [facility]. Anemia is microcytic, indicating iron deficiency. No sign of acute bleed at present. 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 -working with Palliative care for pain control regimen that would be sustainable for patient (2) Abdominal pain, lower: (3) Microcytic anemia: (4) Bladder tumor: Admission and Anticipated Discharge Date Admission Date: January 10, 2021 Supervising Physician Co-Signing Physician Notes I personally examined the patient and verified all gomez points of history and exam, discussed case, and agree with decision making with Dr Chisholm feeling ok overall - does have lower pelvic pain about the same as last few days although notes my exam more tender than previous but also notes that i push harder than previous examiners. notes he was feeling ok after d/c from [place] while on iv abx, once that and wound vac stopped, he started to generally feel worse - loss of appetite, worse pain. vitals noted nad heent nc at mmm breathing unlabored no accessory muscles good effort skin no rashes no pallor or icterus. abd soft nondistended. b/l lower pelvic ttp no guarding or rebound but fairly tender wound appears healing no erythema ostomy appears functioning and intact, not dusky abddominal pain/septic picture - ?infectious vs malignant. continue zosyn, serial labs, serial exams. with concern on complex collection in pelvis, may have to re-image if progress remains unclear lovenox dvt proph otherwise as above Subjective Patient overall feels well this morning, tolerating oral intake without complication. Having no fevers, chills, sweats, nausea or vomiting. Did note that there was some darker discharge from the ostomy on the left side of his abdomen and was not sure what that was. Also noted that he was having some faint clear discharge from his rectum which he was not certain if that was normal or not following the ostomies that he has had. Review of Systems Review of Systems: All systems reviewed & are unremarkable except as noted in Subjective Physical Exam Constitutional: WD/WN, vitals as above Eyes: PERRL, conjunctivae normal, anicteric sclerae Respiratory: normal respiratory effort, lungs clear to auscultation Cardiovascular: Rate/Rhythm: regular rate and regular rhythm Heart Sounds: no gallop, no murmur and no cardiac rub Gastrointestinal (Abdomen): normal bowel sounds, soft, nontender, no hepatosplenomegaly Skin: no rashes, warm and dry Psychiatric: Orientation: alert and oriented x 3 Results & Data Results & Data ([facility]) Vital Signs (Past 12 Hours) Vital Signs Temp Pulse Resp BP Pulse Ox 01/13/21 22:41 37.0 C 125 H 18 118/74 98 Laboratory Results 01/14/21 01/14/21 01/14/21 Range/Units 10:23 10:23 10:23 WBC (4.8-10.8) K/uL RBC (4.7-6.1) M/uL Hgb (14.0-18.0) g/dL Hct (42-52) % MCV (80-100) fL MCH (25-34) pg MCHC (32-36) g/dL RDW Std Deviation (36.4-46.3) fL RDW Coeff of Chris (11.5-14.5) % Plt Count (130-400) K/uL MPV (7.4-10.4) fL Immature Gran % (Auto) % Neut % (Auto) % Lymph % (Auto) % [place] % (Auto) % Eos % (Auto) % Baso % (Auto) % Neut # (Auto) (1.4-6.5) K/uL Lymph # (Auto) (1.2-3.4) K/uL [place] # (Auto) (0.11-0.59) K/uL Eos # (Auto) (0-0.5) K/uL Baso # (Auto) (0-0.2) K/uL Immature Gran # (Auto) (0.00-0.02) K/uL ESR > 90 H (0-14) mm/hr Sodium (136-145) mmol/L Potassium (3.5-5.1) mmol/L Chloride (98-107) mmol/L Carbon Dioxide (21-32) mmol/L Anion Gap (3-11) BUN (7-18) mg/dl Creatinine (0.6-1.4) mg/dl Est Cr Clr Drug Dosing ml/min Est GFR ( Amer) Est GFR (Non-Af Amer) BUN/Creatinine Ratio (10-20) Glucose (70-99) mg/dl Calcium (8.5-10.1) mg/dl Total Bilirubin (0.2-1) mg/dl AST (15-37) U/L ALT (12-78) U/L Alkaline Phosphatase (45-117) U/L C-Reactive Protein 13.80 H (0-0.29) mg/dl Total Protein (6.4-8.2) gm/dl Albumin (3.4-5.0) gm/dl Globulin (2.5-4.0) gm/dl Albumin/Globulin Ratio (0.9-2) Procalcitonin 0.52 H (0-0.5) ng/ml 01/14/21 01/14/21 01/14/21 Range/Units 07:21 07:21 07:16 WBC 30.30 H* (4.8-10.8) K/uL RBC 3.82 L (4.7-6.1) M/uL Hgb 10.3 L (14.0-18.0) g/dL Hct 31.3 L (42-52) % MCV 81.9 (80-100) fL MCH 27.0 (25-34) pg MCHC 32.9 (32-36) g/dL RDW Std Deviation 54.4 H (36.4-46.3) fL RDW Coeff of Chris 18.0 H (11.5-14.5) % Plt Count 1125 H* (130-400) K/uL MPV 8.1 (7.4-10.4) fL Immature Gran % (Auto) 0.5 % Neut % (Auto) 85.6 % Lymph % (Auto) 8.5 % [place] % (Auto) 3.0 % Eos % (Auto) 2.3 % Baso % (Auto) 0.1 % Neut # (Auto) 25.92 H (1.4-6.5) K/uL Lymph # (Auto) 2.59 (1.2-3.4) K/uL [place] # (Auto) 0.90 H (0.11-0.59) K/uL Eos # (Auto) 0.71 H (0-0.5) K/uL Baso # (Auto) 0.03 (0-0.2) K/uL Immature Gran # (Auto) 0.15 H (0.00-0.02) K/uL ESR (0-14) mm/hr Sodium 135 L (136-145) mmol/L Potassium 4.4 (3.5-5.1) mmol/L Chloride 102 (98-107) mmol/L Carbon Dioxide 20 L (21-32) mmol/L Anion Gap 13.0 H (3-11) BUN 13 (7-18) mg/dl Creatinine 1.18 1.22 (0.6-1.4) mg/dl Est Cr Clr Drug Dosing 61.7 59.7 ml/min Est GFR ( Amer) 86.5 83.1 Est GFR (Non-Af Amer) 74.6 71.7 BUN/Creatinine Ratio 10.7 (10-20) Glucose 102 H (70-99) mg/dl Calcium 9.4 (8.5-10.1) mg/dl Total Bilirubin 0.6 (0.2-1) mg/dl AST 37 (15-37) U/L ALT 73 (12-78) U/L Alkaline Phosphatase 354 H (45-117) U/L C-Reactive Protein (0-0.29) mg/dl Total Protein 7.3 (6.4-8.2) gm/dl Albumin 1.9 L (3.4-5.0) gm/dl Globulin 5.4 H (2.5-4.0) gm/dl Albumin/Globulin Ratio 0.4 L (0.9-2) Procalcitonin (0-0.5) ng/ml Medications Administered Current Inpatient Medications Hydrocodone Bitart/Acetaminophen (Hydrocodone/Acetaminophen 10/325 Tab) 1 tab PO Q4H PRN PRN Reason: Pain Stop: 01/25/21 10:56 Last Admin: 01/14/21 14:56 Dose: 1 tab Documented by: Enoxaparin Sodium (Enoxaparin Inj 40 Mg/0.4 Ml Syr) 40 mg SQ DAILY JERMAINE Stop: 02/10/21 08:59 Last Admin: 01/14/21 07:10 Dose: 40 mg Documented by: Heparin Sodium (Beef Lung) (Heparin 10 Unit/Ml 5 Ml Flush) 5 ml FLUSH PRN PRN PRN Reason: Flush Stop: 02/09/21 22:48 Last Admin: 01/14/21 05:20 Dose: 5 ml Documented by: Piperacillin Sod/Tazobactam (Sod 3.375 gm/ Dextrose) 115 mls @ 28.75 mls/hr IV Q8H JERMAINE; Protocol Stop: 01/20/21 17:59 Last Admin: 01/14/21 17:59 Dose: 28.8 mls/hr Documented by: Miscellaneous Information (Piperacill/Tazobac Consult Active) 1 ea N/A UD PRN PRN Reason: Consult Stop: 02/09/21 10:34 Morphine Sulfate (Morphine Sulfate Cr 60 Mg Tabcr) 60 mg PO Q12H JERMAINE Stop: 01/28/21 17:59 Last Admin: 01/14/21 17:59 Dose: 60 mg Documented by: Morphine Sulfate (Morphine Sulfate Cr 15 Mg Tabcr) 15 mg PO Q12H JERMAINE Stop: 01/28/21 17:59 Last Admin: 01/14/21 17:59 Dose: 15 mg Documented by: Multivitamins/Folic Acid/Vitamin C (Multivitamin Chewable Tab) 1 tab PO QAM JERMAINE Stop: 02/11/21 08:59 Last Admin: 01/14/21 07:08 Dose: 1 tab Documented by: Ondansetron HCl (Ondansetron Inj 2 Mg/Ml 2 Ml Vial) 4 mg IV Q4H PRN PRN Reason: Nausea Stop: 02/09/21 17:11 Last Admin: 01/11/21 06:22 Dose: 4 mg Documented by: Pantoprazole Sodium (Pantoprazole 40 Mg Tab) 40 mg PO DAILY JERMAINE Stop: 02/10/21 08:59 Last Admin: 01/14/21 07:09 Dose: 40 mg Documented by: Vitamin D (Cholecalciferol 1,000 Units 25 Mcg Tab) 1,000 units PO DAILY JERMAINE Stop: 02/10/21 08:59 Last Admin: 01/14/21 07:09 Dose: 1,000 units Documented by: Resident Activity Tracking Resident Involvement: Resident Care Provided Care Provided: Adult Hospital Medicine
[2021-01-14 10:27] LABS: Basophils # (auto) 0.03 K/uL (0-0.2); Basophils % (auto) 0.1 %; Eosinophils # (auto) 0.71 K/uL (0-0.5); Eosinophils % (auto) 2.3 %; Immature Granulocytes # (auto) 0.15 K/uL (0.00-0.02); Immature Granulocytes % (auto) 0.5 %; Lymphocytes # (auto) 2.59 K/uL (1.2-3.4); Lymphocytes % (auto) 8.5 %; Neutrophils # (auto) 25.92 K/uL (1.4-6.5); Neutrophils % (auto) 85.6 %
--- NOTE | 2021-01-14 11:12 | Palliative Care Progress Note ---
Date of Service January 14, 2021 Assessment & Plan (1) Pelvic pain in male: Patient describes his pain at best is 5-6/10 and he describes it being sharp and intermittent and the tip of his urethra, along with a pretty constant rectal pressure. He is currently on Tylenol 1,000 mg PO TID, MS Contin 60mg Q12, and then [place] (10/325) PO Q4 PRN for breakthrough. He has taken THREE doses of breakthrough over past 24 hours. We are nearing the 4G Tylenol threshold per 24 hours, so I will discontinue the scheduled Tylenol and increase his MS Contin to 60 +15mg Q12 for a total of 75 mg every 12 hours for continued sustained pain control and evaluate his opioid immediate release use for breakthrough pain. This dosing was discussed with pharmacy. They do not have capability to dispense 40 mg hence why the 15 mg is ordered. Discussed with nursing to monitor for drowsiness, excess tiredness or altered mental status. He was intermittently tearful when discussing his pain, which led to our discussion of emotional pain. (2) Palliative care encounter: I talked with him regarding his code status. He indicated he would like to be a DNR/DNI but wishes to have his mother involved as his POA. He mentioned she has already lost a son and wants her input. I did express that I would call out to Klaudia to see if a call could be placed, and he does understand that each inmates scenario is specific to them. I reached out to Ophelia in [facility] at [phone] and she indicated that no family call could be granted for him. Per Ophelia, the mother is aware of him being hospitalized and stated that she would be supportive of his wishes. I revisited this conversation with the patient and he was amendable to being a DNR/DNI, which is now changed in the system. He is still hopeful for immunotherapy treatment options. Discussed with hospitalist team to have oncology insight while here and hospitalized. Palliative care will follow to assist with pain management and goals of care. (3) Bladder tumor: Admission and Anticipated Discharge Date Admission Date: January 10, 2021 Subjective Mr. Corley was sitting in his bed in no apparent distress. He is AAOx3. Pain reportedly 5-6/10 at best, and at rest. Ambulation exacerbates pain. Describes uretheral and rectal dull pressure combined with sharp pain. Patient continues to have appetite and is sleeping without disturbances See A/P for further details. Review of Systems Review of Systems: [place] Symptom Assessment Scale Pain 3/3 Dyspnea 0/3 Nausea 0/3 Fatigue 0/3 Anorexia 0/3 Drowsiness 0/3 palliative performance scale: 40% Physical Exam Constitutional: + uncomfortable Respiratory: normal respiratory effort; no labored breathing Musculoskeletal: Extremities: extremities normal to inspection Psychiatric: Orientation: alert and oriented x 3 Affect: euthymic affect and + tearful affect Insight: good insight Judgement: good judgement Genitourinary: indwelling da silva catheter. PG Care Time/CCT Total # of Minutes Spent Total Time Spent with Patient: Total time spent is greater than 50% in coordination of care (as documented) at patient's floor/unit and/or counseling patient: Total time spent 45 minutes with > 50% of that time spent assessing the patient, discussing goals of care, providing pain and symptom management and collaborating with SCI Klaudia and ANGIE Coding Level of Care Code 69099 Subseq Hosp Care Lvl 3 Diagnoses Pelvic pain in male R10.2 Palliative care encounter Z51.5 Bladder tumor D49.4 Time Spent (min) 45
[2021-01-14] MEDS: MoRPHine SULFATE CR 15 MG TABCR PO SCH (17:59)
--- NOTE | 2021-01-14 18:16 | Billing Data ---
Date of Service January 14, 2021 Coding Level of Care Code 42094 Subseq Hosp Care Lvl 3
[2021-01-15] MEDS: PIPERACILLIN/TAZOBACTAM 3.375 GM in DEXTROSE 5% 100 ML IV SCH ×3 (01:51→18:06)
[2021-01-15] MEDS: HYDROcodone/ACETAMINOPHEN 10/325 TAB PO PRN ×4 (01:56→20:13)
[2021-01-15] MEDS: MoRPHine SULFATE CR 60 MG TABCR PO SCH ×2 (05:56→18:07)
[2021-01-15] MEDS: MoRPHine SULFATE CR 15 MG TABCR PO SCH ×2 (05:56→18:06)
--- NOTE | 2021-01-15 06:44 | Hospitalist Progress Note ---
Date of Service January 15, 2021 Assessment & Plan (1) Pelvic pain in male: 45y/o M with PMH significant for metastatic bladder tumor with numerous recent surgical interventions. Fever: -uncertain etiology in the setting of numerous recent surgical procedures. no clear source of infection however multiple points of access potential -WBC this AM of 30, this babb an increase from earlier in admission -ESR >90, CRP 13, Procal 0.52 -Presumed cause of fever, weakness at the nursing home given he had felt well until switching to oral abx 1 week ago. Of note, per prior records, his WBC was also ~20 when he was discharged from [facility] -Cultures taken from his Lim catheter (which has been switched subsequently). -Blood cultures drawn in the ED are negative to date -Blood cultures drawn on 01/14 demonstrating gram positive cocci in clusters in 1/2 bottles -MRSA PCR negative -Continue Zosyn at this time will await final speciation of cultures -consideration of escalation of antibiotics if no improvement, would start Levaquin and Vancomycin at that time in place of current regimen Bladder tumor: -Recently discharged from [facility] after colectomy, ileostomy, and right nephrostomy tube. -Oncology consulted -working with palliative for pain control Anemia: Hgb was ~ 8 - 9 during prior admission in 11/2020, but this was before major surgery at [facility]. Anemia is microcytic, indicating iron deficiency. No sign of acute bleed at present. 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 -working with Palliative care for pain control regimen that would be sustainable for patient (2) Abdominal pain, lower: (3) Microcytic anemia: (4) Bladder tumor: Admission and Anticipated Discharge Date Admission Date: January 10, 2021 Supervising Physician Co-Signing Physician Notes I personally examined the patient and verified all gomez points of history and exam, discussed case, and agree with decision making with Dr Phan Ashraf a little better than yesterday. No fevers chills or sweats. Notes that changing the catheter definitely helped with pain a lot. No other new complaints. vitals noted nad heent nc at mmm breathing unlabored no accessory muscles good effort skin no rashes no pallor or icterus. abd soft nondistended. b/l lower pelvic ttp no guarding or rebound but fairly tender but less than yesterday wound appears healing no erythema abdominal pain/septic picture - ?infectious vs malignant. Does appear to be improving. Continue Zosyn, serial exams, serial labs. Tachycardiaimproved with fluids. He does not appear to have hypovolemic shock, but I suspect with poor p.o. intake he likely was a little bit on the dehydrated side, this combined with infectious physiology likely led to the tachycardia. He does not appear to be deteriorating in a septic way. Continue to follow closely, and we will continue fluids lovenox dvt proph otherwise as above Subjective Overall patient feels relatively unchanged this morning as compared to previous days. Continues to be able to tolerate food and drink without problem, but is still having intermittent pains, that remain relatively unchanged as compared to previous days. Has been working with palliative care team to better control pain during this stay. Review of Systems Review of Systems: All systems reviewed & are unremarkable except as noted in Subjective Physical Exam Constitutional: WD/WN, vitals as above Eyes: PERRL, conjunctivae normal, anicteric sclerae Respiratory: normal respiratory effort, lungs clear to auscultation Cardiovascular: Rate/Rhythm: regular rate and regular rhythm Heart Sounds: no gallop, no murmur and no cardiac rub Gastrointestinal (Abdomen): Inspection/Auscultation: normal bowel sounds and + abdominal surgical scar Percussion/Palpation: abdomen soft; abdomen nontender, no guarding and abdomen not rigid two ostomy bags over anterior abdomen, no erythema or tenderness surrounding surgical sites Skin: no rashes, warm and dry Psychiatric: Orientation: alert and oriented x 3 Results & Data Results & Data ([facility]) Vital Signs (Past 12 Hours) Vital Signs Temp Pulse Resp BP Pulse Ox 01/14/21 22:21 36.8 C 113 H 16 117/81 98 Laboratory Results 01/15/21 01/15/21 01/15/21 Range/Units 06:53 06:53 06:53 WBC (4.8-10.8) K/uL RBC (4.7-6.1) M/uL Hgb (14.0-18.0) g/dL Hct (42-52) % MCV (80-100) fL MCH (25-34) pg MCHC (32-36) g/dL RDW Std Deviation (36.4-46.3) fL RDW Coeff of Chris (11.5-14.5) % Plt Count (130-400) K/uL MPV (7.4-10.4) fL Immature Gran % (Auto) % Neut % (Auto) % Lymph % (Auto) % [place] % (Auto) % Eos % (Auto) % Baso % (Auto) % Neut # (Auto) (1.4-6.5) K/uL Lymph # (Auto) (1.2-3.4) K/uL [place] # (Auto) (0.11-0.59) K/uL Eos # (Auto) (0-0.5) K/uL Baso # (Auto) (0-0.2) K/uL Immature Gran # (Auto) (0.00-0.02) K/uL Hypochromasia ESR > 90 H (0-14) mm/hr Sodium 133 L (136-145) mmol/L Potassium 4.3 (3.5-5.1) mmol/L Chloride 100 (98-107) mmol/L Carbon Dioxide 22 (21-32) mmol/L Anion Gap 12.0 H (3-11) BUN 19 H (7-18) mg/dl Creatinine 1.15 (0.6-1.4) mg/dl Est Cr Clr Drug Dosing 63.3 ml/min Est GFR ( Amer) 89.2 Est GFR (Non-Af Amer) 77.0 BUN/Creatinine Ratio 16.1 (10-20) Glucose 95 (70-99) mg/dl Calcium 9.3 (8.5-10.1) mg/dl Total Bilirubin 0.5 (0.2-1) mg/dl AST 45 H (15-37) U/L ALT 112 H (12-78) U/L Alkaline Phosphatase 392 H (45-117) U/L C-Reactive Protein 13.50 H (0-0.29) mg/dl Total Protein 7.4 (6.4-8.2) gm/dl Albumin 1.9 L (3.4-5.0) gm/dl Globulin 5.5 H (2.5-4.0) gm/dl Albumin/Globulin Ratio 0.3 L (0.9-2) Procalcitonin 0.48 (0-0.5) ng/ml Bld Cult Staph aureus PCR (Negative) Blood Culture MRSA PCR (Negative) 01/15/21 01/14/21 Range/Units 06:53 10:23 WBC 26.87 H (4.8-10.8) K/uL RBC 3.89 L (4.7-6.1) M/uL Hgb 10.4 L (14.0-18.0) g/dL Hct 31.9 L (42-52) % MCV 82.0 (80-100) fL MCH 26.7 (25-34) pg MCHC 32.6 (32-36) g/dL RDW Std Deviation 53.4 H (36.4-46.3) fL RDW Coeff of Chris 17.8 H (11.5-14.5) % Plt Count 1109 H* (130-400) K/uL MPV 8.0 (7.4-10.4) fL Immature Gran % (Auto) 0.4 % Neut % (Auto) 81.7 % Lymph % (Auto) 6.0 % [place] % (Auto) 8.1 % Eos % (Auto) 3.7 % Baso % (Auto) 0.1 % Neut # (Auto) 21.94 H (1.4-6.5) K/uL Lymph # (Auto) 1.61 (1.2-3.4) K/uL [place] # (Auto) 2.18 H (0.11-0.59) K/uL Eos # (Auto) 1.00 H (0-0.5) K/uL Baso # (Auto) 0.04 (0-0.2) K/uL Immature Gran # (Auto) 0.10 H (0.00-0.02) K/uL Hypochromasia Present ESR (0-14) mm/hr Sodium (136-145) mmol/L Potassium (3.5-5.1) mmol/L Chloride (98-107) mmol/L Carbon Dioxide (21-32) mmol/L Anion Gap (3-11) BUN (7-18) mg/dl Creatinine (0.6-1.4) mg/dl Est Cr Clr Drug Dosing ml/min Est GFR ( Amer) Est GFR (Non-Af Amer) BUN/Creatinine Ratio (10-20) Glucose (70-99) mg/dl Calcium (8.5-10.1) mg/dl Total Bilirubin (0.2-1) mg/dl AST (15-37) U/L ALT (12-78) U/L Alkaline Phosphatase (45-117) U/L C-Reactive Protein (0-0.29) mg/dl Total Protein (6.4-8.2) gm/dl Albumin (3.4-5.0) gm/dl Globulin (2.5-4.0) gm/dl Albumin/Globulin Ratio (0.9-2) Procalcitonin (0-0.5) ng/ml Bld Cult Staph aureus PCR Negative (Negative) Blood Culture MRSA PCR Negative (Negative) Resident Activity Tracking Resident Involvement: Resident Care Provided Care Provided: Adult Hospital Medicine
[2021-01-15 07:51] LABS: Hematocrit (blood only) 31.9 % (42-52); Hemoglobin 10.4 g/dL (14.0-18.0); Mean Corpuscular Hemoglobin 26.7 pg (25-34); Mean Corpuscular Hgb Conc 32.6 g/dL (32-36); Platelet Count 1109 K/uL (130-400); RDW Coefficient of Variation 17.8 % (11.5-14.5); RDW Standard Deviation 53.4 fL (36.4-46.3); Red Blood Count 3.89 M/uL (4.7-6.1); White Blood Count 26.87 K/uL (4.8-10.8)
[2021-01-15 07:56] LABS: Albumin Level 1.9 gm/dl (3.4-5.0); BUN Creatinine Ratio 16.1 (10-20); C Reactive Protein 13.5 mg/dl (0-0.29); Calcium 9.3 mg/dl (8.5-10.1); Creatinine Clr Calc Pharmacy 63.3 ml/min; Est GFR (African American) 89.2; Potassium 4.3 mmol/L (3.5-5.1)
[2021-01-15 07:59] LABS: Albumin Globulin Ratio 0.3 (0.9-2); Bilirubin,Total 0.5 mg/dl (0.2-1); Globulin 5.5 gm/dl (2.5-4.0); Total Protein 7.4 gm/dl (6.4-8.2)
[2021-01-15 08:04] LABS: Basophils # (auto) 0.04 K/uL (0-0.2); Basophils % (auto) 0.1 %; Eosinophils % (auto) 3.7 %; Hypochromasia Present; Immature Granulocytes % (auto) 0.4 %; Lymphocytes # (auto) 1.61 K/uL (1.2-3.4); Monocytes # (auto) 2.18 K/uL (0.11-0.59); Monocytes % (auto) 8.1 %; Neutrophils # (auto) 21.94 K/uL (1.4-6.5); Neutrophils % (auto) 81.7 %
[2021-01-15] MEDS: MULTIVITAMIN CHEWABLE TAB PO SCH (08:13)
[2021-01-15] MEDS: CHOLECALCIFEROL 1,000 UNITS 25 MCG TAB PO SCH (08:13)
[2021-01-15] MEDS: PANTOprazole 40 MG TAB PO SCH (08:13)
[2021-01-15] MEDS: ENOXAPARIN INJ 40 MG/0.4 ML SYR SQ SCH (08:13)
[2021-01-15] MEDS ORDERED: SODIUM CHLORIDE 0.9% 1000ML 1,000 ML IV SCH (10:46)
--- NOTE | 2021-01-15 12:22 | Palliative Care Progress Note ---
Date of Service January 15, 2021 Assessment & Plan (1) Pelvic pain in male: related to advanced bladder cancer. He seems to be doing better today. He has described pain as 5/10 at best. He has also said that 5/10 is a tolerable level for him. I suspect that further increases in morphine ER will not decrease hydrocodone frequency of use. Will monitor on current dosing. We can also consider adjuvant medications such as gabapentin if needed. He could potentially benefit from methadone and QTc on most recent EKG is 450. We would need to check with LIN Rudolph on feasibility of methadone use. Palliative care will follow. (2) Palliative care encounter: (3) Bladder tumor: Admission and Anticipated Discharge Date Admission Date: January 10, 2021 Subjective Resting in bed. Smiling. Reports pain is better today. Continues to need hydrocodone at least three times a day. Three doses today since midnight. Review of Systems Review of Systems: [place] Symptom Assessement Scale Pain 1/3 Dyspnea 0/3 Anxiety 0/3 Nausea 0/3 Fatigue 2/3 Palliative Performance Score 40% Physical Exam Constitutional: no acute distress Respiratory: normal respiratory effort; no labored breathing Cardiovascular: Extremities: no edema Gastrointestinal (Abdomen): not distended Musculoskeletal: Extremities: extremities normal to inspection Neurologic: no focal motor deficits Psychiatric: A+Ox3, euthymic affect Results & Data ([facility]) Vital Signs (Past 12 Hours) Vital Signs Temp Pulse Resp BP Pulse Ox 01/15/21 08:36 97.3 F L 132 H 19 99/67 L 98 PG Care Time/CCT Total # of Minutes Spent Total Time Spent with Patient: Total time spent is greater than 50% in coordination of care (as documented) at patient's floor/unit and/or counseling patient: Coding Level of Care Code 49212 Subseq Hosp Care Lvl 2 Diagnoses Pelvic pain in male R10.2 Palliative care encounter Z51.5 Bladder tumor D49.4
--- NOTE | 2021-01-15 19:34 | Billing Data ---
Date of Service January 15, 2021 Coding Level of Care Code 00106 Subseq Hosp Care Lvl 3
[2021-01-15] MEDS: LACTATED RINGER'S 1,000 ML IV SCH (21:39)
[2021-01-16] MEDS: HYDROcodone/ACETAMINOPHEN 10/325 TAB PO PRN ×3 (02:04→23:08)
[2021-01-16] MEDS: PIPERACILLIN/TAZOBACTAM 3.375 GM in DEXTROSE 5% 100 ML IV SCH ×3 (02:05→18:18)
[2021-01-16] MEDS: MoRPHine SULFATE CR 15 MG TABCR PO SCH ×2 (05:44→18:18)
[2021-01-16] MEDS: MoRPHine SULFATE CR 60 MG TABCR PO SCH ×2 (05:44→18:18)
[2021-01-16 07:50] LABS: Hematocrit (blood only) 31.8 % (42-52); Hemoglobin 10.3 g/dL (14.0-18.0); Mean Corpuscular Hemoglobin 26.8 pg (25-34); Mean Corpuscular Hgb Conc 32.4 g/dL (32-36); Mean Corpuscular Volume 82.6 fL (80-100); Platelet Count 1047 K/uL (130-400); RDW Coefficient of Variation 17.8 % (11.5-14.5); RDW Standard Deviation 53.9 fL (36.4-46.3); Red Blood Count 3.85 M/uL (4.7-6.1); White Blood Count 26.53 K/uL (4.8-10.8)
[2021-01-16 08:07] LABS: Albumin Level 1.9 gm/dl (3.4-5.0); BUN Creatinine Ratio 16.7 (10-20); Calcium 10.1 mg/dl (8.5-10.1); Creatinine Clr Calc Pharmacy 58.6 ml/min; Est GFR (African American) 81.4; Est GFR (Non-African American) 70.3; Potassium 4.3 mmol/L (3.5-5.1)
[2021-01-16 08:11] LABS: Albumin Globulin Ratio 0.3 (0.9-2); Bilirubin,Total 0.6 mg/dl (0.2-1); Globulin 5.6 gm/dl (2.5-4.0); Total Protein 7.5 gm/dl (6.4-8.2)
[2021-01-16 08:13] LABS: Basophils # (auto) 0.05 K/uL (0-0.2); Basophils % (auto) 0.2 %; Eosinophils # (auto) 0.95 K/uL (0-0.5); Eosinophils % (auto) 3.6 %; Immature Granulocytes # (auto) 0.14 K/uL (0.00-0.02); Immature Granulocytes % (auto) 0.5 %; Lymphocytes % (auto) 5.7 %; Monocytes # (auto) 2.18 K/uL (0.11-0.59); Monocytes % (auto) 8.2 %; Neutrophils # (auto) 21.71 K/uL (1.4-6.5); Neutrophils % (auto) 81.8 %
[2021-01-16] MEDS: PANTOprazole 40 MG TAB PO SCH (08:13)
[2021-01-16] MEDS: CHOLECALCIFEROL 1,000 UNITS 25 MCG TAB PO SCH (08:13)
[2021-01-16] MEDS: MULTIVITAMIN CHEWABLE TAB PO SCH (08:13)
[2021-01-16] MEDS: ENOXAPARIN INJ 40 MG/0.4 ML SYR SQ SCH (08:13)
--- NOTE | 2021-01-16 10:43 | Hospitalist Progress Note ---
Date of Service January 16, 2021 Assessment & Plan (1) Pelvic pain in male: 45y/o M with PMH significant for metastatic bladder tumor with numerous recent surgical interventions. Fever: -uncertain etiology in the setting of numerous recent surgical procedures. no clear source of infection however multiple points of access potential -Presumed cause of fever, weakness at the senior care given he had felt well until switching to oral abx 1 week ago. Of note, per prior records, his WBC was also ~20 when he was discharged from [facility] -Blood cultures drawn on 01/14 demonstrating gram positive cocci in clusters in 1/2 bottles -MRSA PCR negative -Continue Zosyn at this time -CT abdomen/pelvis today demonstrated concerns for combination tumor with central necrosis/abscess -potentially source of continued -patient to evaluate desires to undergo further abdominal surgery(ies) verse desire to remain on antibiotics with more of a comfort directed goals of care going forward Bladder tumor: -Recently discharged from [facility] after colectomy, ileostomy, and right nephrostomy tube. -Oncology consulted -working with palliative for pain control Anemia: Hgb was ~ 8 - 9 during prior admission in 11/2020, but this was before major surgery at [facility]. Anemia is microcytic, indicating iron deficiency. No sign of acute bleed at present. 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 -working with Palliative care for pain control regimen that would be sustainable for patient (2) Abdominal pain, lower: (3) Microcytic anemia: (4) Bladder tumor: Admission and Anticipated Discharge Date Admission Date: January 10, 2021 Supervising Physician Co-Signing Physician Notes I personally examined the patient and verified all gomez points of history and exam, discussed case, and agree with decision making with Dr Phan Ashraf about the same, reviewed CT and options. vitals noted nad heent nc at mmm breathing unlabored no accessory muscles good effort skin no rashes no pallor or icterus. CT noted, and reviewed with patient abdominal pain/septic picture -unfortunately with repeat Ct this appears to likely be malignancy that has degenerated into an infectious necrotic abscess type picture. We discussed that the Zosyn seems to be "keeping things at bay" but would have almost no chance to be curative, we discussed that malignancy is probably at the center of what is driving this, but we did discuss that there could be a possibility of some improvement in his septic picture, as well as possibly some degree of improvement in his pain control with an interventional radiology drainage of the necrotic mass. We discussed this would probably be somewhat difficult and would require a transfer, but could be an option. We countered this with the other option of possibly returning to senior care on Zosyn and pain control, knowing that either way unfortunately his tumor seems to be progressing to where he is clearly in end-of-life decision making territory. He expressed good understanding of this. He will weigh his options and we will move forward in one direction or the other tomorrow. Tachycardiadehydration and a degree of septic physiology. Has been temporized with IV fluids. lovenox dvt proph otherwise as above Subjective Patient continuing to have abdominal pain, and does not feel like he is improving much towards being able to be functional. Continuing to be able to tolerate oral intake. LIN Klaudia was able to clear him talking with his family and that is to happen at some point today. Following the results of the CT scan, patient is going to evaluate what further steps he desires in his care and weigh the outlined options tonight to determine what he will be most comfortable with. Review of Systems Review of Systems: All systems reviewed & are unremarkable except as noted in Subjective Physical Exam Constitutional: WD/WN, vitals as above Eyes: PERRL, conjunctivae normal, anicteric sclerae Respiratory: normal respiratory effort, lungs clear to auscultation Cardiovascular: Rate/Rhythm: regular rate and regular rhythm Heart Sounds: no gallop Gastrointestinal (Abdomen): Inspection/Auscultation: normal bowel sounds and + abdominal surgical scar Percussion/Palpation: abdomen soft; abdomen nontender, no guarding and abdomen not rigid Skin: no rashes, warm and dry Psychiatric: Orientation: alert and oriented x 3 Results & Data [facility] Vital Signs (Past 12 Hours) Vital Signs Temp Pulse Resp BP Pulse Ox 01/16/21 07:37 37.6 C H 118 H 15 106/71 97 Laboratory Results 01/16/21 01/16/21 01/16/21 Range/Units 06:44 06:44 06:44 WBC 26.53 H (4.8-10.8) K/uL RBC 3.85 L (4.7-6.1) M/uL Hgb 10.3 L (14.0-18.0) g/dL Hct 31.8 L (42-52) % MCV 82.6 (80-100) fL MCH 26.8 (25-34) pg MCHC 32.4 (32-36) g/dL RDW Std Deviation 53.9 H (36.4-46.3) fL RDW Coeff of Chris 17.8 H (11.5-14.5) % Plt Count 1047 H* (130-400) K/uL MPV 8.0 (7.4-10.4) fL Immature Gran % (Auto) 0.5 % Neut % (Auto) 81.8 % Lymph % (Auto) 5.7 % [place] % (Auto) 8.2 % Eos % (Auto) 3.6 % Baso % (Auto) 0.2 % Neut # (Auto) 21.71 H (1.4-6.5) K/uL Lymph # (Auto) 1.50 (1.2-3.4) K/uL [place] # (Auto) 2.18 H (0.11-0.59) K/uL Eos # (Auto) 0.95 H (0-0.5) K/uL Baso # (Auto) 0.05 (0-0.2) K/uL Immature Gran # (Auto) 0.14 H (0.00-0.02) K/uL Sodium 131 L (136-145) mmol/L Potassium 4.3 (3.5-5.1) mmol/L Chloride 99 (98-107) mmol/L Carbon Dioxide 23 (21-32) mmol/L Anion Gap 9.0 (3-11) BUN 21 H (7-18) mg/dl Creatinine 1.24 (0.6-1.4) mg/dl Est Cr Clr Drug Dosing 58.6 ml/min Est GFR ( Amer) 81.4 Est GFR (Non-Af Amer) 70.3 BUN/Creatinine Ratio 16.7 (10-20) Glucose 104 H (70-99) mg/dl Calcium 10.1 (8.5-10.1) mg/dl Total Bilirubin 0.6 (0.2-1) mg/dl AST 36 (15-37) U/L ALT 118 H (12-78) U/L Alkaline Phosphatase 408 H (45-117) U/L Total Protein 7.5 (6.4-8.2) gm/dl Albumin 1.9 L (3.4-5.0) gm/dl Globulin 5.6 H (2.5-4.0) gm/dl Albumin/Globulin Ratio 0.3 L (0.9-2) Procalcitonin 0.47 (0-0.5) ng/ml Bld Cult Staph aureus PCR (Negative) Blood Culture MRSA PCR (Negative) 01/14/21 Range/Units 10:23 WBC (4.8-10.8) K/uL RBC (4.7-6.1) M/uL Hgb (14.0-18.0) g/dL Hct (42-52) % MCV (80-100) fL MCH (25-34) pg MCHC (32-36) g/dL RDW Std Deviation (36.4-46.3) fL RDW Coeff of Chris (11.5-14.5) % Plt Count (130-400) K/uL MPV (7.4-10.4) fL Immature Gran % (Auto) % Neut % (Auto) % Lymph % (Auto) % [place] % (Auto) % Eos % (Auto) % Baso % (Auto) % Neut # (Auto) (1.4-6.5) K/uL Lymph # (Auto) (1.2-3.4) K/uL [place] # (Auto) (0.11-0.59) K/uL Eos # (Auto) (0-0.5) K/uL Baso # (Auto) (0-0.2) K/uL Immature Gran # (Auto) (0.00-0.02) K/uL Sodium (136-145) mmol/L Potassium (3.5-5.1) mmol/L Chloride (98-107) mmol/L Carbon Dioxide (21-32) mmol/L Anion Gap (3-11) BUN (7-18) mg/dl Creatinine (0.6-1.4) mg/dl Est Cr Clr Drug Dosing ml/min Est GFR ( Amer) Est GFR (Non-Af Amer) BUN/Creatinine Ratio (10-20) Glucose (70-99) mg/dl Calcium (8.5-10.1) mg/dl Total Bilirubin (0.2-1) mg/dl AST (15-37) U/L ALT (12-78) U/L Alkaline Phosphatase (45-117) U/L Total Protein (6.4-8.2) gm/dl Albumin (3.4-5.0) gm/dl Globulin (2.5-4.0) gm/dl Albumin/Globulin Ratio (0.9-2) Procalcitonin (0-0.5) ng/ml Bld Cult Staph aureus PCR Negative (Negative) Blood Culture MRSA PCR Negative (Negative) Medications Administered Current Inpatient Medications Hydrocodone Bitart/Acetaminophen (Hydrocodone/Acetaminophen 10/325 Tab) 1 tab PO Q4H PRN PRN Reason: Pain Stop: 01/25/21 10:56 Last Admin: 01/16/21 02:04 Dose: 1 tab Documented by: Enoxaparin Sodium (Enoxaparin Inj 40 Mg/0.4 Ml Syr) 40 mg SQ DAILY JERMAINE Stop: 02/10/21 08:59 Last Admin: 01/16/21 08:13 Dose: 40 mg Documented by: Heparin Sodium (Beef Lung) (Heparin 10 Unit/Ml 5 Ml Flush) 5 ml FLUSH PRN PRN PRN Reason: Flush Stop: 02/09/21 22:48 Last Admin: 01/15/21 05:56 Dose: 5 ml Documented by: Piperacillin Sod/Tazobactam (Sod 3.375 gm/ Dextrose) 115 mls @ 28.75 mls/hr IV Q8H JERMAINE; Protocol Stop: 01/20/21 17:59 Last Admin: 01/16/21 09:39 Dose: 28.8 mls/hr Documented by: Lactated Ringer's (Lr) 1,000 mls @ 80 mls/hr IV .[id number] [facility] Stop: 02/14/21 19:44 Last Admin: 01/15/21 21:39 Dose: 80 mls/hr Documented by: Miscellaneous Information (Piperacill/Tazobac Consult Active) 1 ea N/A UD PRN PRN Reason: Consult Stop: 02/09/21 10:34 Morphine Sulfate (Morphine Sulfate Cr 60 Mg Tabcr) 60 mg PO Q12H [facility] Stop: 01/28/21 17:59 Last Admin: 01/16/21 05:44 Dose: 60 mg Documented by: Morphine Sulfate (Morphine Sulfate Cr 15 Mg Tabcr) 15 mg PO Q12H JERMAINE Stop: 01/28/21 17:59 Last Admin: 01/16/21 05:44 Dose: 15 mg Documented by: Multivitamins/Folic Acid/Vitamin C (Multivitamin Chewable Tab) 1 tab PO QAM [facility] Stop: 02/11/21 08:59 Last Admin: 01/16/21 08:13 Dose: 1 tab Documented by: Ondansetron HCl (Ondansetron Inj 2 Mg/Ml 2 Ml Vial) 4 mg IV Q4H PRN PRN Reason: Nausea Stop: 02/09/21 17:11 Last Admin: 01/11/21 06:22 Dose: 4 mg Documented by: Pantoprazole Sodium (Pantoprazole 40 Mg Tab) 40 mg PO DAILY [facility] Stop: 02/10/21 08:59 Last Admin: 01/16/21 08:13 Dose: 40 mg Documented by: Vitamin D (Cholecalciferol 1,000 Units 25 Mcg Tab) 1,000 units PO DAILY [facility] Stop: 02/10/21 08:59 Last Admin: 01/16/21 08:13 Dose: 1,000 units Documented by: Resident Activity Tracking Resident Involvement: Resident Care Provided Care Provided: Adult Hospital Medicine
--- NOTE | 2021-01-16 12:03 | Palliative Care Progress Note ---
Date of Service January 16, 2021 Assessment & Plan (1) Abdominal pain, lower: Improved pain control. No constipation. Continue current medications. (2) Palliative care encounter: Per case management, he has been allowed one conversation with his mother. Will discuss further with him tomorrow when he is more awake. (3) Bladder tumor: (4) UTI (urinary tract infection): Admission and Anticipated Discharge Date Admission Date: January 10, 2021 Subjective Asleep. Resting comfortably. He has had one dose of hydrocodone today, with to carol of four doses yesterday. Review of Systems Review of Systems: deferred Physical Exam Constitutional: no acute distress Respiratory: normal respiratory effort; no labored breathing Cardiovascular: Extremities: no edema Gastrointestinal (Abdomen): ostomy with no constipation Musculoskeletal: Extremities: extremities normal to inspection Neurologic: no focal motor deficits Results & Data ([facility]) Vital Signs (Past 12 Hours) Vital Signs Temp Pulse Resp BP Pulse Ox 01/16/21 07:37 99.7 F H 118 H 15 106/71 97 PG Care Time/CCT Total # of Minutes Spent Total Time Spent with Patient: Total time spent is greater than 50% in coordination of care (as documented) at patient's floor/unit and/or counseling patient: Coding Level of Care Code 41334 Subseq Hosp Care Lvl 2 Diagnoses Abdominal pain, lower R10.30 Palliative care encounter Z51.5 Bladder tumor D49.4 UTI (urinary tract infection) N39.0
[2021-01-16] MEDS ORDERED: OPTIRAY 320 100ml IV ONE (13:18)
--- NOTE | 2021-01-16 14:58 | CT Scan Report ---
CT OF THE ABDOMEN AND PELVIS WITH CONTRAST CLINICAL HISTORY: Rising LFTs, metastatic cancer COMPARISON STUDY: CT of the abdomen and pelvis January 10, 2021. TECHNIQUE: Following IV administration of 94 mL of Optiray-320, axial images of the abdomen and pelvi s were obtained from the lung bases to the proximal femurs. Images were reviewed in the axial, sagitt al, and coronal planes. IV contrast was administered without complication. Automated exposure contro l was utilized for the study. A dose lowering technique was utilized adhering to the principles of A ALLY. CT DOSE: 267.78 mGycm FINDINGS: Lung bases are unremarkable. No pneumatosis, free air or portal venous gas is present. No h epatic lesions are present. There is no biliary or pancreatic ductal dilatation. Mild hepatomegaly is noted. The spleen, adrenal glands and pancreas are unremarkable. Left kidney is surgically absent. T here is no abnormality within the left nephrectomy bed. A right sided percutaneous nephrostomy is in place. There is mild right collecting system dilatation which is unchanged since CT of January 10. Note is made of multiple mildly enlarged para-aortic lymph nodes. There are also mildly enlarged bilateral inguinal lymph nodes. These are unchanged. Note is made of a peripherally enhancing fluid collection anterior to the left sacroiliac joint that measures 1.8 cm. This is likely intramuscular. There are no suspicious osseous lesions. Note is made of postoperative findings consistent with cystectomy, prostatectomy, neobladder formatio n and diverting colostomy. A Lim balloon and gas is present within the neobladder. Note is again ma de of wall thickening and hyperemia of the distal sigmoid colon and the rectum. Indistinctness of the wall of the distal colon and rectum is noted. This may represent a perforation. A large peripherally enhancing masslike abnormality within the pelvis extends into the lower abdomen. This contains multi ple locules of gas. This is similar to CT of January 10, 2021. The conglomerate mass measures approx imately 14 x 14 x 10 cm. This is similar to prior CT. There is mild adjacent infiltration. IMPRESSION: 1. No significant change since CT of January 10, 2021. Status post prostatectomy, cystectomy and div erting colostomy with neobladder formation. Large peripherally enhancing gas containing mass-like abn ormality within the pelvis, measuring approximately 14 x 14 x 10 cm. This is contiguous with the neob ladder and inflamed distal colon and rectum. Contained bowel perforation with abscess may be present . The findings likely reflect a combination of necrotic/infected tumor and abscess. 2. Right percutaneous nephrostomy in place. Mild right collecting system dilatation which is unchange d. Status post left nephrectomy. 3. No change in mildly enlarged abdominal and pelvic lymphadenopathy. 4. No hepatic metastases. No biliary ductal dilatation. Mild hepatomegaly. 5. No bowel obstruction. ACT 112: Negative or not required by law. Electronically signed by: Jl Santos M.D. 01/16/2021 2:57 PM
--- NOTE | 2021-01-16 17:11 | Billing Data ---
Date of Service January 16, 2021 Coding Level of Care Code 66193 Subseq Hosp Care Lvl 3
[2021-01-16] MEDS: LACTATED RINGER'S 1,000 ML IV SCH (18:20)
[2021-01-17] MEDS: LACTATED RINGER'S 1,000 ML IV SCH ×2 (01:36→09:52)
[2021-01-17] MEDS: PIPERACILLIN/TAZOBACTAM 3.375 GM in DEXTROSE 5% 100 ML IV SCH ×2 (01:41→10:03)
[2021-01-17 05:54] LABS: Hematocrit (blood only) 29.9 % (42-52); Hemoglobin 9.8 g/dL (14.0-18.0); Mean Corpuscular Hemoglobin 26.9 pg (25-34); Mean Corpuscular Hgb Conc 32.8 g/dL (32-36); Mean Corpuscular Volume 82.1 fL (80-100); Mean Platelet Volume 8.1 fL (7.4-10.4); Platelet Count 1022 K/uL (130-400); RDW Coefficient of Variation 17.5 % (11.5-14.5); Red Blood Count 3.64 M/uL (4.7-6.1); White Blood Count 26.86 K/uL (4.8-10.8)
[2021-01-17] MEDS: MoRPHine SULFATE CR 60 MG TABCR PO SCH (06:04)
[2021-01-17] MEDS: MoRPHine SULFATE CR 15 MG TABCR PO SCH (06:04)
[2021-01-17 06:14] LABS: Basophils # (auto) 0.03 K/uL (0-0.2); Basophils % (auto) 0.1 %; Immature Granulocytes # (auto) 0.14 K/uL (0.00-0.02); Immature Granulocytes % (auto) 0.5 %; Lymphocytes # (auto) 1.92 K/uL (1.2-3.4); Lymphocytes % (auto) 7.1 %; Monocytes % (auto) 7.1 %; Neutrophils # (auto) 22.07 K/uL (1.4-6.5); Neutrophils % (auto) 82.2 %; RBC Morphology Unremarkable
[2021-01-17] MEDS: PANTOprazole 40 MG TAB PO SCH (08:35)
[2021-01-17] MEDS: CHOLECALCIFEROL 1,000 UNITS 25 MCG TAB PO SCH (08:35)
[2021-01-17] MEDS: MULTIVITAMIN CHEWABLE TAB PO SCH (08:35)
[2021-01-17] MEDS: ENOXAPARIN INJ 40 MG/0.4 ML SYR SQ SCH (08:35)
--- NOTE | 2021-01-17 10:29 | Palliative Care Progress Note ---
Date of Service January 17, 2021 Assessment & Plan (1) Abdominal pain, lower: Harjinder continues to have pain 5/10. He has utilized THREE doses of [place] for breakthrough. No constipation noted through his colostomy. Plan for him to return to [facility] today or tomorrow. Residents having a call with custodial today regarding pain medications. Currently, patient is on MS Contin 75 mg PO BID and [place] 10mg/325mg Q4 PRN. As this patient will be incarcerated, we would prefer to have him transitioned to something transdermal for administration ease and tolerance. He has received 152 mg MS Contin Oral Morphine Equivalent, which converts to a borderline 75mcg Fentanyl patch. Due to the nature of his discharge disposition, will have something for breakthrough as well: Percocet 7.5 mg PO QID. Thanks for involving palliative care with this individual. (2) Palliative care encounter: Per case management, he has been allowed one conversation with his mother. Since he is returning to the custodial, he defers this at this time and will talk to her upon his return. (3) Bladder tumor: (4) UTI (urinary tract infection): Admission and Anticipated Discharge Date Admission Date: January 10, 2021 Subjective Patient was lying in his bed and states that he has agreed to return to custodial to continue IV abx and transition to a more comfort approach as his disease continues to progress. He continues to be AAOx3. Thus far, pain management has not caused any sedation. Pt continues to state his pain is 5/10 and exacerbated by movement, he does have concerns about his pain worsening. Review of Systems Review of Systems: [place] System Assessment Scale: Tiredness: 0/3 Drowsiness: 0/3 Shortness of breath: 0/3 Pain: 2/3 palliative performance scale: 40% Physical Exam Constitutional: + uncomfortable ENMT: Mouth: + dry oral mucous membranes Respiratory: normal respiratory effort; no labored breathing Cardiovascular: Rate/Rhythm: regular rate Heart Sounds: normal S1 and normal S2 Extremities: normal capillary refill; no edema Musculoskeletal: Extremities: extremities normal to inspection Psychiatric: Orientation: alert and oriented x 3 Affect: euthymic affect and + tearful affect Insight: good insight Judgement: good judgement Results & Data ([facility]) Vital Signs (Past 12 Hours) Vital Signs Temp Pulse Pulse Resp BP Pulse Ox 03/04/21 07:18 36.7 C 112 H 18 110/72 96 01/16/21 22:59 37.1 C 112 H 18 115/77 96 PG Care Time/CCT Total # of Minutes Spent Total Time Spent with Patient: Total time spent is greater than 50% in coordination of care (as documented) at patient's floor/unit and/or counseling patient: 45 Coding Level of Care Code 85154 Subseq Hosp Care Lvl 3 Diagnoses Abdominal pain, lower R10.30 Palliative care encounter Z51.5 Bladder tumor D49.4 UTI (urinary tract infection) N39.0 Time Spent (min) 45
[2021-01-17] MEDS ORDERED: oxyCODONE/APAP 7.5/325MG TAB PO PRN (10:44)
[2021-01-17] MEDS ORDERED: fentaNYL 75 MCG/HR TDSY TD SCH (10:45)
--- NOTE | 2021-01-17 11:27 | Discharge Summary ---
Date of Service January 17, 2021 Admission HPI Per Admitting Provider 45yo M w/ hx of bladder cancer who presents with fatigue, fevers, and weakness. The patient is a very unfortunate gentleman who has a history of bladder cancer. He reports he underwent chemotherapy in [place] which ended in 12/2017. At some point, he had a cystectomy, left nephrectomy, prostatectomy, and neobladder formation at [facility] also in 2018. He was admitted in 11/2020 with Tiffanie and seen by our urology team who recommended return to [facility] for correction of a colovesicular fistula. At some point, he went to [facility] and underwent a large procedure where he had a colostomy and ileostomy and right nephrostomy tube. He was discharged approx. 2 weeks later on IV antibiotics. He reports to me that he finished his IV antibiotics about 1 week ago and was transitioned to oral antibiotics. He reports that he very quickly felt weaker and had a loss of appetite. He also had a temperature to 101 at the long term which preciptated his being sent to the ED for evaluation. Principal Diagnosis metastatic bladder cancer, with necrotic/infected tumor Discharge Exam Eyes PERRL, conjunctivae normal, anicteric sclerae Respiratory normal respiratory effort, lungs clear to auscultation Cardiovascular Rate/Rhythm: regular rate and regular rhythm Heart Sounds: no gallop, no murmur and no cardiac rub Gastrointestinal (Abdomen) Inspection/Auscultation: normal bowel sounds and + abdominal surgical scar Percussion/Palpation: abdomen soft; abdomen nontender, no guarding and abdomen not rigid Skin no rashes, warm and dry Psychiatric Orientation: alert and oriented x 3 Discharge Data Allergies Allergy/AdvReac Type Severity Reaction Status Date / Time No Known Allergies Allergy Verified 01/10/21 12:11 Consultations 01/10/21 14:16 ED Decision to Admit Stat 01/10/21 20:47 Consult Oncology Routine Consult Palliative Care Routine 01/11/21 13:31 Consult Infectious Diseases Routine 01/11/21 13:32 Consult Urology Routine Ordered Studies 01/10/21 10:29 CT abd pelvis oral and IV con Stat 01/16/21 11:35 CT abd pelvis IV con only Routine Hospital Course (1) Pelvic pain in male: 45y/o M with PMH significant for metastatic bladder tumor with numerous r ecent surgical interventions. Metastaic Bladder Cancer: -CT abdomen/pelvis today demonstrated concerns for combination [id number] mass with central necrosis/abscess -discussed limited role of IR guided drainage due to potential limited improvement in tumor burden pain -patient declines desire to pursue further potential intervention at this time, desires to remain as comfortable with what remaining time he has instead of pursuing further treatment options -Continue Zosyn 3.375mg Q8h indefinitely or until patient decides he would rather comfort measures only. 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 -Fentanyl 75mcg Q3D -Percocet 7.5mg Q6h PRN for breakthrough pain -given extent of disease up-titration of pain regimen will be needed as disease continues to progress (2) Abdominal pain, lower: (3) Microcytic anemia: (4) Bladder tumor: Total Time Total Time Spent Total Time Spent (In Minutes): <30 Discharge Plan Discharge Items Patient Disposition: [facility] Reason For Visit: UTI/INFECTION, BLADDER CANCER Discharge Diagnosis: Metastatic bladder cancer, with necrotic mass Condition on Discharge: Good Activity: Per Instructions section Non-emergency contact: Primary Care Provider Call non-emergency contact if: you have any medication questions and your pain is worsening Follow-up/Referrals: Klaudia CEBALLOS [Primary Care Provider] - Diet: Regular Addtl Attending Provider Instructions: Harjinder Corley was seen and admitted for concerns of fever in the setting of recent abdominal surgery, and in the setting of metastatic bladder cancer. During this time, tests and imaging demonstrated that he has a [id number] mass that appeared infected and has signs of central necrosis. After discussing the extent of his disease, and the extent of surgeries that he has been through, and in discussions with our palliative care team and hospitalist team has decided not to pursue further treatment at this time as he is aware of the extent of his disease and that at this moment pursuing further invasive treatments would not result in meaningful improvement in his overall prognosis. With the decision to make steps towards controlling the metastatic pain, and to control the potential spread of infection, but understanding that this will not eliminate the source of the infection; patient has elected to continue antibiotic treatment and pain control at this time only. As a result of this, for his pain control he should be continued on Fentanyl 75mcg transdermal patch, with 7.5mg of Percocet every 6 hours as needed for breakthrough pain. For limitation of the progression of the infection concerns at this point, he should be continued on Piperacillin-Tazobactam 3.375gm every 8 hours. All of these medications should be continued indefinitely, or until the patient decides that he no longer wants to pursue this route of management and desires to become comfort care only. Pending Studies at Discharge: No Stand-Alone Forms: [facility] Skilled Items Patient informed of condition?: Yes Discharge Level of Care: Other Communicable Disease: No Discharge Prognosis: Deteriorating Lines: PICC Urinary Catheter: Yes Medications and DC Order Prescriptions: New Zosyn in dextrose (iso-osm) 3.375 gram/50 mL piggyback 3.375 g IV Q8H 49 Days RF: 0 oxycodone-acetaminophen [Endocet] 7.5-325 mg Tablet 1 tab PO Q6H PRN (Reason: breakthrough pain) 49 Days RF: 0 fentanyl 75 mcg/hr Patch 72 Hour 75 mcg transdermal Q3D 210 Days RF: 0 Continued cholecalciferol (vitamin D3) [Vitamin D3] 25 mcg (1,000 unit) Capsule 25 mcg PO DAILY RF: 0 pantoprazole 40 mg Tablet,Delayed Release (Dr/Ec) 40 mg PO DAILY RF: 0 food supplemt, lactose-reduced Liquid 1 ea PO TID RF: 0 enoxaparin 40 mg/0.4 mL Syringe 40 mg SUBCUT DAILY RF: 0 Cerovite Jr 18 mg iron- 10 mcg Tablet,Chewable 1 tab PO DAILY RF: 0 Discontinued morphine 30 mg Tablet Extended Release 30 mg PO Q12H RF: 0 Discharge Orders: Discharge Order (Routine); Ordered 01/17/21 Ordered By: Galen Christina/Other Patient Handouts: Ileostomy: Nutritional Management Admission Data Admit Date/Time: 01/10/21 15:20 Attending Provider: Asaf Barber Admit Provider: Ronaldo Biggs Primary Care Provider: Klaudia CEBALLOS Other Providers: Rubio Alvarez V. ; Scarlet Quezada ; Kermit Ceja ; Frida Ventura ; Marc Eaton I. ; Eduardo Camara II ; Meliza Youngblood ; Cordell Sullivan ; Prasanna Ji ; Ronaldo Biggs Other Interventions: Discharge Summary Assessment (RN) Last Done: 01/17/21 14:52 Supervising Physician Co-Signing Physician Notes I personally examined the patient and verified all gomez points of history and exam, discussed case, and agree with decision making with Dr Chisholm does not want further interventions. would prefer conservative approach, pain control, and returnt o long term vitals noted nad heent nc at mmm breathing unlabored no accessory muscles good effort skin no rashes no pallor or icterus. abdominal pain/septic picture -unfortunately with repeat Ct this appears to likely be malignancy that has degenerated into an infectious necrotic abscess type picture. after discussions yesterday and today - he does not want to pursue further interventions, and therefore dc on zosyn and pain control. given that the abscess appears truly to be a necrotic infection in a cancerous mass, there will not likely be a medically clear "endpoint" for antibiotics - we discussed that this endpoint will likely come about more when he has reached a point that his quality of life is poor enough he would prefer comfort measures only. Tachycardiadehydration and a degree of septic physiology. Has been temporized with IV fluids. would follow his status as outpt otherwise as above, stable for discharge under above conditions Resident Activity Tracking Resident Involvement: Resident Care Provided Care Provided: Adult Hospital Medicine
--- NOTE | 2021-01-17 13:20 | Billing Data ---
Date of Service January 17, 2021 Coding Level of Care Code D/C Day Management <30 mins
[2021-01-17] MEDS ORDERED: LIDOCAINE 2% JELLY 5 ML TUBE ONE (14:26)
[2021-01-17] MEDS ORDERED: LIDOCAINE 2% JELLY 5 ML TUBE EXT SCH (14:30)
[2021-01-17] MEDS ORDERED: CHECK fentaNYL PATCH PLACEMENT SCH (16:00)
== END 2021-01-17 15:37 ==
LOC: ED 10:13 → 3N 15:20 → SUATTDRO 15:20 → 3N 16:38

== ENCOUNTER 2021-02-22 11:43 | Inpatient (IN) ==
[2021-02-22] MEDS ORDERED: SODIUM CHLORIDE 0.9% 1000ML 1,000 ML IV ONE (12:30)
[2021-02-22] MEDS ORDERED: MoRPHine SULFATE 2 MG/ML CARP IV STA (12:33)
--- NOTE | 2021-02-22 12:44 | Emergency Department Note ---
History of Present Illness General Chief complaint: Flank Pain Time Seen by Provider: 02/22/21 12:21 Source: patient and other ([facility]) Mode of arrival: other ([facility] transport) Limitations: no limitations History of Present Illness Maximum Pain Intensity: 8 This patient is a 45-year-old male has a complex medical history with metastatic bladder cancer, comes in after right flank pain. Is currently an inmate. No fever or chills no trauma. No cough. He has had Covid. He does have a PICC line in his left arm for which he has been getting antibiotics. He has 2 bags on his abdomen that have a normal output. Also is a Lim catheter and a right nephrostomy tube which have yellow urine slightly turbid Home Medications Medication Instructions Recorded Confirmed Type cholecalciferol (vitamin D3) 25 mcg PO DAILY 11/19/20 02/01/21 History [Vitamin D3] Cerovite Jr 1 tab PO DAILY 01/10/21 02/01/21 History enoxaparin 40 mg SUBCUT DAILY 01/10/21 02/01/21 History food supplemt, lactose-reduced 1 ea PO TID 01/10/21 02/01/21 History pantoprazole 40 mg PO DAILY 01/10/21 02/01/21 History fentanyl 75 mcg TRANSDERMAL Q3D 210 Days ea 01/17/21 02/01/21 Rx oxycodone-acetaminophen [Endocet] 1 tab PO Q6H PRN 49 Days tab 01/17/21 02/01/21 Rx mwihijabkbym-hqqswkepan-zvfyri 3.375 g IV Q8H 49 Days 01/17/21 02/01/21 Rx [Zosyn in dextrose (iso-osm)] Allergies Allergy/AdvReac Type Severity Reaction Status Date / Time No Known Allergies Allergy Verified 02/01/21 09:06 Past Med/Surg History Medical History Bladder tumor UTI (urinary tract infection) Surgical History History of bladder surgery Neobladder anastomosis Family History Father Hypertension Social History Smoking Status: Former smoker Second Hand Exposure: No; Hx Alcohol Use: No Hx Substance Use: No Preferred Language: Albanian Communication Ability: Effective Access Spec Required: No Beliefs That Will Affect Care: None Current Living Situation: Other Current Living Situation Comment: correctional facility Feels Safe at Home: Yes Assistive Devices: None Review of Systems A total of 10 systems reviewed and were otherwise negative Physical Exam Vital Signs Vital Signs - 24 hr 02/22/21 11:47 02/22/21 11:49 02/22/21 11:58 Temperature 36.6 C Temperature Source Oral Pulse Rate 120 H 119 H 119 H Pulse Rate from SpO2 Sensor 120 H 119 H Respiratory Rate 19 16 19 Respiratory Effort / Characteristics Non-Labored Respiratory Depth Normal Blood Pressure 103/67 103/67 Blood Pressure Mean 79 79 Pulse Oximetry 98 99 98 Oxygen Delivery Method Room Air Sepsis Recent Fever Within 48 Hours No Sepsis New/Unexplained Change in Mental Status No Sepsis Action Taken by Nursing No Action Required 02/22/21 12:00 02/22/21 12:10 02/22/21 12:20 Temperature Temperature Source Pulse Rate 117 H 117 H 117 H Pulse Rate from SpO2 Sensor 117 H 117 H 117 H Respiratory Rate 21 15 18 Respiratory Effort / Characteristics Respiratory Depth Blood Pressure Blood Pressure Mean Pulse Oximetry 97 96 98 Oxygen Delivery Method Sepsis Recent Fever Within 48 Hours Sepsis New/Unexplained Change in Mental Status Sepsis Action Taken by Nursing 02/22/21 12:30 02/22/21 12:40 02/22/21 12:42 Temperature Temperature Source Pulse Rate 115 H 115 H Pulse Rate from SpO2 Sensor 115 H 115 H Respiratory Rate 19 16 Respiratory Effort / Characteristics Respiratory Depth Blood Pressure Blood Pressure Mean Pulse Oximetry 98 98 99 Oxygen Delivery Method Room Air Sepsis Recent Fever Within 48 Hours Sepsis New/Unexplained Change in Mental Status Sepsis Action Taken by Nursing 02/22/21 12:50 02/22/21 13:00 02/22/21 13:10 Temperature Temperature Source Pulse Rate 116 H 113 H 114 H Pulse Rate from SpO2 Sensor 115 H 114 H Respiratory Rate 23 16 21 Respiratory Effort / Characteristics Respiratory Depth Blood Pressure 112/80 Blood Pressure Mean 90 Pulse Oximetry 98 98 Oxygen Delivery Method Sepsis Recent Fever Within 48 Hours Sepsis New/Unexplained Change in Mental Status Sepsis Action Taken by Nursing 02/22/21 13:20 02/22/21 13:30 02/22/21 13:40 Temperature Temperature Source Pulse Rate 113 H 113 H 113 H Pulse Rate from SpO2 Sensor 112 H Respiratory Rate 23 16 16 Respiratory Effort / Characteristics Respiratory Depth Blood Pressure Blood Pressure Mean Pulse Oximetry 91 Oxygen Delivery Method Sepsis Recent Fever Within 48 Hours Sepsis New/Unexplained Change in Mental Status Sepsis Action Taken by Nursing 02/22/21 13:50 02/22/21 14:00 02/22/21 14:16 Temperature Temperature Source Pulse Rate 113 H 118 H Pulse Rate from SpO2 Sensor 114 H 118 H Respiratory Rate 16 20 Respiratory Effort / Characteristics Respiratory Depth Blood Pressure 128/89 Blood Pressure Mean 102 Pulse Oximetry 97 96 Oxygen Delivery Method Sepsis Recent Fever Within 48 Hours Sepsis New/Unexplained Change in Mental Status Sepsis Action Taken by Nursing 02/22/21 14:20 02/22/21 14:30 02/22/21 14:40 Temperature Temperature Source Pulse Rate 118 H 119 H 119 H Pulse Rate from SpO2 Sensor 124 H Respiratory Rate 18 18 14 Respiratory Effort / Characteristics Respiratory Depth Blood Pressure 114/77 Blood Pressure Mean 89 Pulse Oximetry 96 Oxygen Delivery Method Sepsis Recent Fever Within 48 Hours Sepsis New/Unexplained Change in Mental Status Sepsis Action Taken by Nursing 02/22/21 14:50 02/22/21 15:00 02/22/21 15:10 Temperature Temperature Source Pulse Rate 119 H 123 H 120 H Pulse Rate from SpO2 Sensor Respiratory Rate 15 13 14 Respiratory Effort / Characteristics Respiratory Depth Blood Pressure 114/81 Blood Pressure Mean 92 Pulse Oximetry Oxygen Delivery Method Sepsis Recent Fever Within 48 Hours Sepsis New/Unexplained Change in Mental Status Sepsis Action Taken by Nursing 02/22/21 15:20 02/22/21 15:30 02/22/21 15:40 Temperature Temperature Source Pulse Rate 126 H 118 H 116 H Pulse Rate from SpO2 Sensor 118 H 116 H Respiratory Rate 17 15 14 Respiratory Effort / Characteristics Respiratory Depth Blood Pressure 118/86 Blood Pressure Mean 96 Pulse Oximetry 95 94 Oxygen Delivery Method Sepsis Recent Fever Within 48 Hours Sepsis New/Unexplained Change in Mental Status Sepsis Action Taken by Nursing 02/22/21 15:50 02/22/21 16:00 Temperature Temperature Source Pulse Rate 117 H 121 H Pulse Rate from SpO2 Sensor 117 H 122 H Respiratory Rate 15 19 Respiratory Effort / Characteristics Respiratory Depth Blood Pressure Blood Pressure Mean Pulse Oximetry 95 99 Oxygen Delivery Method Sepsis Recent Fever Within 48 Hours Sepsis New/Unexplained Change in Mental Status Sepsis Action Taken by Nursing General: Chronically ill-appearing cachectic middle-age male in no acute distress, breathing comfortably on room air. Normal speech HEENT: Normal cephalic atraumatic. Pupils are equal round and reactive to light. Extraocular movements are intact. Oropharynx is pink with moist mucous membranes. No swelling of the mouth lips or tongue. Neck: Supple with a midline trachea. No meningeal signs or stiffness, no JVD or bruits. No Stridor. Chest: Clear to auscultation bilaterally. No wheezes or rhonchi. No increased work of breathing. Heart: Regular rate and rhythm without murmurs or gallops. Abdomen: Soft highly diffusely tender. Nondistended without rebound guarding or rigidity. There is a nephrostomy tube on the right which is intact without redness or pus drainage. There is yellow urine in both this and the Lim bag. There are 2 bags coming off the ostomy sites in the abdomen, one has brown stool the other is empty. Extremities: No cyanosis clubbing or edema. No calf tenderness or assymetry Spine/Back. Non tender to palpation. No CVA tenderness Skin: Good turgor without rashes. Neurologic exam: Cranial nerves two through 12 are intact. Motor and sensation are intact and symmetrical throughout. Course Administered Medications Discontinued Medications Sodium Chloride (Nss 1000ml) 1,000 mls @ 999 mls/hr IV .Q1H1M ONE Stop: 02/22/21 13:30 Last Infusion: 02/22/21 14:35 Dose: 0 mls/hr Documented by: [id number] Admin: 02/22/21 12:49 Dose: 999 mls/hr Documented by: [id number] Piperacillin Sod/Tazobactam Sod (Zosyn) 4.5 gm in 120 mls @ 240 mls/hr IV NOW ONE Stop: 02/22/21 15:14 Last Infusion: 02/22/21 15:58 Dose: 0 mls/hr Documented by: [id number] Admin: 02/22/21 15:16 Dose: 240 mls/hr Documented by: [id number] Sodium Chloride (Nss) 500 mls @ 999 mls/hr IV .Q31M ONE Stop: 02/22/21 15:31 Last Infusion: 02/22/21 15:58 Dose: 0 mls/hr Documented by: [id number] Admin: 02/22/21 15:20 Dose: 999 mls/hr Documented by: [id number] Morphine Sulfate (Morphine Sulfate 2 Mg/Ml Carp) 2 mg IV NOW STA Stop: 02/22/21 12:34 Last Admin: 02/22/21 12:44 Dose: 2 mg Documented by: [id number] Medical Decision Making Differential Diagnosis Sepsis, bowel obstruction, UTI, insert complication, kidney obstruction, electrolyte or metabolic abnormality Medical Records Attestation: I reviewed the patient's medical records. Home Medications Current Medication List: was personally reviewed by me Laboratory Data Attestation: I reviewed the patient's lab results. Result diagrams: 02/22/21 13:53 02/22/21 13:53 Lab Results 02/22/21 02/22/21 02/22/21 Range/Units 12:25 12:25 13:19 WBC (4.8-10.8) K/uL RBC (4.7-6.1) M/uL Hgb (14.0-18.0) g/dL Hct (42-52) % MCV (80-100) fL MCH (25-34) pg MCHC (32-36) g/dL RDW Std Deviation (36.4-46.3) fL RDW Coeff of Chris (11.5-14.5) % Plt Count (130-400) K/uL MPV (7.4-10.4) fL Immature Gran % (Auto) % Neut % (Auto) % Lymph % (Auto) % [place] % (Auto) % Eos % (Auto) % Baso % (Auto) % Neut # (Auto) (1.4-6.5) K/uL Lymph # (Auto) (1.2-3.4) K/uL [place] # (Auto) (0.11-0.59) K/uL Eos # (Auto) (0-0.5) K/uL Baso # (Auto) (0-0.2) K/uL Immature Gran # (Auto) (0.00-0.02) K/uL Hypochromasia Echinocytes PT (9.0-12.0) Seconds INR (0.9-1.1) APTT (21.0-31.0) Seconds PTT Ratio Sodium (136-145) mmol/L Potassium (3.5-5.1) mmol/L Chloride (98-107) mmol/L Carbon Dioxide (21-32) mmol/L Anion Gap (3-11) BUN (7-18) mg/dl Creatinine (0.6-1.4) mg/dl Est Cr Clr Drug Dosing ml/min Est GFR ( Amer) Est GFR (Non-Af Amer) BUN/Creatinine Ratio (10-20) Glucose (70-99) mg/dl Lactate (0.4-2.0) mmol/L Calcium (8.5-10.1) mg/dl Magnesium (1.8-2.4) mg/dl Total Bilirubin (0.2-1) mg/dl AST (15-37) U/L ALT (12-78) U/L Alkaline Phosphatase (45-117) U/L Total Protein (6.4-8.2) gm/dl Albumin (3.4-5.0) gm/dl Globulin (2.5-4.0) gm/dl Albumin/Globulin Ratio (0.9-2) Urine Color Yellow Yellow Urine Appearance Turbid A Turbid A (Clear) Urine pH 8.0 H 5.5 (4.5-7.5) Ur Specific [place] 1.014 1.024 (1.000-1.030) Urine Protein 3+ H 1+ H (Negative) Urine Glucose (UA) Negative Negative (Negative) Urine Ketones Negative Negative (Negative) Urine Blood 3+ H 2+ H (Negative) Urine Nitrite Negative Negative (Negative) Urine Bilirubin Negative Negative (Negative) Urine Urobilinogen Negative Negative (Negative) Ur Leukocyte Esterase 3+ H 3+ H (Negative) Urine WBC (Auto) >30 H >30 H (0-5) /hpf Urine RBC (Auto) >30 H >30 H (0-4) /hpf U Hyaline Cast (Auto) 1-5 1-5 (0-5) /lpf U Epithel Cells (Auto) >30 H >30 H (0-5) /lpf Urine Bacteria (Auto) 4+ H 2+ H (Negative) Calcium Oxalate Crystal Present A (None Prsent) Urine Yeast Not Reportable COVID-19 Eval Order CovFluRsv at [facility] SARS-CoV-2 (PCR) (Negative) Influenza Type A (PCR) (Neg) Influenza Type B (PCR) (Neg) RSV (RT-PCR) (Neg) 04/09/21 04/09/21 04/09/21 Range/Units 13:19 13:53 13:53 WBC 37.32 H* (4.8-10.8) K/uL RBC 3.43 L (4.7-6.1) M/uL Hgb 9.0 L (14.0-18.0) g/dL Hct 29.2 L (42-52) % MCV 85.1 (80-100) fL MCH 26.2 (25-34) pg MCHC 30.8 L (32-36) g/dL RDW Std Deviation 52.4 H (36.4-46.3) fL RDW Coeff of Chris 17.0 H (11.5-14.5) % Plt Count 944 H (130-400) K/uL MPV 8.1 (7.4-10.4) fL Immature Gran % (Auto) 0.8 % Neut % (Auto) 90.7 % Lymph % (Auto) 3.8 % [place] % (Auto) 4.0 % Eos % (Auto) 0.6 % Baso % (Auto) 0.1 % Neut # (Auto) 33.88 H (1.4-6.5) K/uL Lymph # (Auto) 1.42 (1.2-3.4) K/uL [place] # (Auto) 1.48 H (0.11-0.59) K/uL Eos # (Auto) 0.21 (0-0.5) K/uL Baso # (Auto) 0.03 (0-0.2) K/uL Immature Gran # (Auto) 0.30 H (0.00-0.02) K/uL Hypochromasia Present Echinocytes 1+ PT 10.8 (9.0-12.0) Seconds INR 1.1 (0.9-1.1) APTT 23.4 (21.0-31.0) Seconds PTT Ratio 0.9 Sodium (136-145) mmol/L Potassium (3.5-5.1) mmol/L Chloride (98-107) mmol/L Carbon Dioxide (21-32) mmol/L Anion Gap (3-11) BUN (7-18) mg/dl Creatinine (0.6-1.4) mg/dl Est Cr Clr Drug Dosing ml/min Est GFR ( Amer) Est GFR (Non-Af Amer) BUN/Creatinine Ratio (10-20) Glucose (70-99) mg/dl Lactate (0.4-2.0) mmol/L Calcium (8.5-10.1) mg/dl Magnesium (1.8-2.4) mg/dl Total Bilirubin (0.2-1) mg/dl AST (15-37) U/L ALT (12-78) U/L Alkaline Phosphatase (45-117) U/L Total Protein (6.4-8.2) gm/dl Albumin (3.4-5.0) gm/dl Globulin (2.5-4.0) gm/dl Albumin/Globulin Ratio (0.9-2) Urine Color Urine Appearance (Clear) Urine pH (4.5-7.5) Ur Specific [place] (1.000-1.030) Urine Protein (Negative) Urine Glucose (UA) (Negative) Urine Ketones (Negative) Urine Blood (Negative) Urine Nitrite (Negative) Urine Bilirubin (Negative) Urine Urobilinogen (Negative) Ur Leukocyte Esterase (Negative) Urine WBC (Auto) (0-5) /hpf Urine RBC (Auto) (0-4) /hpf U Hyaline Cast (Auto) (0-5) /lpf U Epithel Cells (Auto) (0-5) /lpf Urine Bacteria (Auto) (Negative) Calcium Oxalate Crystal (None Prsent) Urine Yeast COVID-19 Eval Order SARS-CoV-2 (PCR) NEGATIVE (Negative) Influenza Type A (PCR) Negative (Neg) Influenza Type B (PCR) Negative (Neg) RSV (RT-PCR) Negative (Neg) 02/22/21 02/22/21 Range/Units 13:53 13:53 WBC (4.8-10.8) K/uL RBC (4.7-6.1) M/uL Hgb (14.0-18.0) g/dL Hct (42-52) % MCV (80-100) fL MCH (25-34) pg MCHC (32-36) g/dL RDW Std Deviation (36.4-46.3) fL RDW Coeff of Chris (11.5-14.5) % Plt Count (130-400) K/uL MPV (7.4-10.4) fL Immature Gran % (Auto) % Neut % (Auto) % Lymph % (Auto) % [place] % (Auto) % Eos % (Auto) % Baso % (Auto) % Neut # (Auto) (1.4-6.5) K/uL Lymph # (Auto) (1.2-3.4) K/uL [place] # (Auto) (0.11-0.59) K/uL Eos # (Auto) (0-0.5) K/uL Baso # (Auto) (0-0.2) K/uL Immature Gran # (Auto) (0.00-0.02) K/uL Hypochromasia Echinocytes PT (9.0-12.0) Seconds INR (0.9-1.1) APTT (21.0-31.0) Seconds PTT Ratio Sodium 132 L (136-145) mmol/L Potassium 4.5 (3.5-5.1) mmol/L Chloride 102 (98-107) mmol/L Carbon Dioxide 21 (21-32) mmol/L Anion Gap 8.0 (3-11) BUN 20 H (7-18) mg/dl Creatinine 1.47 H (0.6-1.4) mg/dl Est Cr Clr Drug Dosing 47.5 ml/min Est GFR ( Amer) 66.3 Est GFR (Non-Af Amer) 57.2 BUN/Creatinine Ratio 13.7 (10-20) Glucose 83 (70-99) mg/dl Lactate 2.4 H* (0.4-2.0) mmol/L Calcium 12.9 H* (8.5-10.1) mg/dl Magnesium 2.2 (1.8-2.4) mg/dl Total Bilirubin 0.4 (0.2-1) mg/dl AST 14 L (15-37) U/L ALT 43 (12-78) U/L Alkaline Phosphatase 515 H (45-117) U/L Total Protein 6.8 (6.4-8.2) gm/dl Albumin 1.7 L (3.4-5.0) gm/dl Globulin 5.1 H (2.5-4.0) gm/dl Albumin/Globulin Ratio 0.3 L (0.9-2) Urine Color Urine Appearance (Clear) Urine pH (4.5-7.5) Ur Specific [place] (1.000-1.030) Urine Protein (Negative) Urine Glucose (UA) (Negative) Urine Ketones (Negative) Urine Blood (Negative) Urine Nitrite (Negative) Urine Bilirubin (Negative) Urine Urobilinogen (Negative) Ur Leukocyte Esterase (Negative) Urine WBC (Auto) (0-5) /hpf Urine RBC (Auto) (0-4) /hpf U Hyaline Cast (Auto) (0-5) /lpf U Epithel Cells (Auto) (0-5) /lpf Urine Bacteria (Auto) (Negative) Calcium Oxalate Crystal (None Prsent) Urine Yeast COVID-19 Eval Order SARS-CoV-2 (PCR) (Negative) Influenza Type A (PCR) (Neg) Influenza Type B (PCR) (Neg) RSV (RT-PCR) (Neg) Imaging Data Attestation: I personally reviewed and interpreted this imaging study as follows: My Impression: Chest x-rayno acute infiltrate, failure, pneumothorax seen Radiologist's Impression: Chest X-Ray 02/22/21 12:30 XR chest 1V portable HISTORY: SEPSIS COMPARISON: Chest 01/10/2021. FINDINGS: A left PICC terminates at the distal SVC. There is mild elevation of the right hemidiaphragm, unchanged. The lungs are clear. The heart is normal in size. No evidence for pulmonary edema. IMPRESSION: No acute process. ACT 112: Negative or not required by law. Electronically signed by: Crow Johnson M.D. 02/22/2021 1:42 PM Abdomen/Pelvis CT 02/22/21 12:[address] WITHOUT CONTRAST CT DOSE: 267.79 mGycm HISTORY: Acute right-sided flank pain rt flank pain TECHNIQUE: Multiaxial CT images of the abdomen and pelvis were performed without contrast. A dose lowering technique was utilized adhering to the principles of ALARA. COMPARISON STUDY: CT abdomen and pelvis 02/01/2021 FINDINGS: Clear lung bases. Limited exam without the use of contrast. The imaged inferior cardiac chambers are unremarkable. Trace pericardial effusion. Unremarkable spleen and gallbladder. There is edema surrounding the distal pancreatic body and tail with edema and trace fluid within the left mid abdomen. Heterogeneous liver with hepatic steatosis. Left nephrectomy. Right-sided percutaneous nephrostomy is an unchanged positioning. Unchanged 8 mm calcification of the inferior pole right kidney. Moderate sided hydroureteronephrosis appears stable to mildly progressed. Large heterogeneous pelvic mass measuring approximately 13.0 x 13.2 cm is again noted involving the midline pelvis. This contains the Lim catheter, intraluminal gas and numerous adjacent bowel loops. Adjacent surgical clips. Postoperative changes from cystectomy and prostatectomy with neobladder formation. No significant change from comparison. Postoperative changes of the bowel with diverting ostomies. Multifocal areas of bowel wall thickening redemonstrated. No bowel obstruction. Generalized body wall edema. No acute fracture. Phlegmonous change within the right perineal distribution without drainable fluid collection. Previously noted enhancing flu id collections of the left psoas and iliacs distributions are not well visualized without the use of contrast. IMPRESSION: 1. Limited exam without the use of contrast. 2. Increased amount of edema and small volume free fluid within the upper to mid abdomen. Correlate with lipase to exclude acute pancreatitis. 3. Large heterogeneous mass of the midline pelvis involving numerous adjacent bowel loops demonstrates an increased amount of gas. Contain and bowel perforation and/or infection is within the differential. 4. Previously described fluid collections of the left psoas and iliacus musculature are not well seen without the use of contrast. 5. Phlegmon of the right perineal tissues has progressed from comparison. 6. Right-sided percutaneous nephrostomy with mildly progressed moderate hydroureteronephrosis. 7. Prior cystectomy and prostatectomy with neobladder formation. Prior left nephrectomy with diverting ostomies. 8. Additional findings as above. ACT 112: Negative or not required by law. The above report was generated using voice recognition software. It may contain grammatical, syntax or spelling errors. Electronically signed by: Cipriano Duran M.D. 02/22/2021 2:52 PM ECG Data Attestation: I personally reviewed and interpreted this ECG as follows: Indication: + weakness Rate (beats per minute): 117 Rhythm: + sinus tachycardia ECG Intervals/blocks: + Normal QRS, + Normal QT and + Normal OK ECG [place]: + Normal ECG ST segments: + Normal ST segments ECG Findings: no PACs and no PVCs Comparison ECG Date: from (01/13/21) Change: no significant change MDM Narrative This patient comes in above. He has flank pain. He is a DO NOT RESUSCITATE I confirmed this with the patient. PICC line was accessed. Blood work was obta ined a full sepsis work-up was done. He is receiving oral [facility] in the [facility]. He was given morphine 2 mg IV, I did order noncontrast CAT scan to rule obstructive uropathy or other acute findings. Multiple blood testing was obtained. He was reassessed frequently. He was given IV normal saline bolus. A full sepsis work-up was done. Morphine 2 mg IV and is resting comfortably with this. He received 1 L IV normal saline bolus and second 500 cc normal saline bolus. Lactic acid is mildly elevated. White count significantly elevated. CAT scan was markedly abnormal. He has intra-abdominal metastatic cancer with probable infections. Looking through the chart they basically sent him back to the [place] [facility] on IV antibiotics as he did not want any further interventions at the time and was not deemed to be a good operative candidate. Dr. Murillo saw him and felt there is nothing surgical that could be done. He was consulted by palliative care. He remained stable while he was in the ER although seems more somnolent. He does wake up and fall back to sleep. His calcium was found to be significantly high and that could be causing some of this as well. Unfortunately there are a lot of issues that we cannot correct and I think that with his metastatic cancer that he is approaching the end of his life. I do think he needs to be admitted. I did have our comp field case manager call the [place] [facility] and let the family know so they can possibly visit him here. I have consulted Dr. Urbina to see him in the ER. Continuous cardiac monitoring: Due to concern for sepsis, an order was placed in EMR for continuous cardiac monitoring. The patient was noted to be in sinus tachycardia with a rate of 110. Impression & Plan Sepsis, Acute right flank pain, UTI (urinary tract infection), Hydronephrosis, right, Abdominal pain, lower, Cancer-related pain, Lab test negative for COVID- 19 virus, Hypercalcemia Discharge Plan Visit Data Chief Complaint: Flank Pain ED Provider: Bairon Ag Discharge Problem: Sepsis, Acute right flank pain, UTI (urinary tract infection), Hydronephrosis, right, Abdominal pain, lower, Cancer-related pain, Lab test negative for COVID- 19 virus, Hypercalcemia Forms Stand Alone Forms: My [facility] Clip Interactive Prescriptions Prescriptions: No Action cholecalciferol (vitamin D3) [Vitamin D3] 25 mcg (1,000 unit) Capsule 25 mcg PO DAILY RF: 0 pantoprazole 40 mg Tablet,Delayed Release (Dr/Ec) 40 mg PO DAILY RF: 0 food supplemt, lactose-reduced Liquid 1 ea PO TID RF: 0 enoxaparin 40 mg/0.4 mL Syringe 40 mg SUBCUT DAILY RF: 0 Cerovite Jr 18 mg iron- 10 mcg Tablet,Chewable 1 tab PO DAILY RF: 0 Zosyn in dextrose (iso-osm) 3.375 gram/50 mL piggyback 3.375 g IV Q8H 49 Days RF: 0 oxycodone-acetaminophen [Endocet] 7.5-325 mg Tablet 1 tab PO Q6H PRN (Reason: breakthrough pain) 49 Days RF: 0 fentanyl 75 mcg/hr Patch 72 Hour 75 mcg transdermal Q3D 210 Days RF: 0 Discharge Problem: Sepsis Qualifiers: Sepsis type: sepsis due to unspecified organism Sepsis acute organ dysfunction status: with acute organ dysfunction Severe sepsis acute organ dysfunction type: unspecified Severe sepsis shock status: unspecified Qualified Code(s): A41.9 - Sepsis, unspecified organism UTI (urinary tract infection) Qualifiers: Urinary tract infection type: site unspecified Hematuria presence: without hematuria Qualified Code(s): N39.0 - Urinary tract infection, site not specified
[2021-02-22 12:57] LABS: Appearance Urine Turbid (Clear); Bacteria Urine Automated 4+ (Negative); Bilirubin Urine Negative (Negative); Blood Urine 3+ (Negative); Color Urine Yellow; Epithelial Cell Urine Auto >30 /lpf (0-5); Glucose Urine UA Negative (Negative); Ketones Urine Negative (Negative); Leukocyte Esterase Urine 3+ (Negative); Nitrite Urine Negative (Negative); Specific Gravity Urine 1.014 (1.000-1.030); Urobilinogen Urine Negative (Negative); WBC Urine Automated >30 /hpf (0-5)
[2021-02-22 12:59] LABS: Appearance Urine Turbid (Clear); Bacteria Urine Automated 2+ (Negative); Bilirubin Urine Negative (Negative); Blood Urine 2+ (Negative); Color Urine Yellow; Epithelial Cell Urine Auto >30 /lpf (0-5); Glucose Urine UA Negative (Negative); Ketones Urine Negative (Negative); Leukocyte Esterase Urine 3+ (Negative); Nitrite Urine Negative (Negative); Protein Urine 1+ (Negative); Specific Gravity Urine 1.024 (1.000-1.030); Urobilinogen Urine Negative (Negative); WBC Urine Automated >30 /hpf (0-5); pH Urine 5.5 (4.5-7.5)
[2021-02-22 13:05] LABS: Protein Urine 3+ (Negative)
[2021-02-22 13:17] LABS: RBC Urine Automated >30 /hpf (0-4)
[2021-02-22 13:18] LABS: RBC Urine Automated >30 /hpf (0-4)
[2021-02-22 13:19] LABS: Calcium Oxalate Crystals Urine Present (None Prsent)
--- NOTE | 2021-02-22 13:43 | XRay Report ---
XR chest 1V portable HISTORY: SEPSIS COMPARISON: Chest 01/10/2021. FINDINGS: A left PICC terminates at the distal SVC. There is mild elevation of the right hemidiaphrag m, unchanged. The lungs are clear. The heart is normal in size. No evidence for pulmonary edema. IMPRESSION: No acute process. ACT 112: Negative or not required by law. Electronically signed by: Crow Johnson M.D. 02/22/2021 1:42 PM
[2021-02-22 14:24] LABS: Hematocrit (blood only) 29.2 % (42-52); Mean Corpuscular Hemoglobin 26.2 pg (25-34); Mean Corpuscular Hgb Conc 30.8 g/dL (32-36); Mean Corpuscular Volume 85.1 fL (80-100); Mean Platelet Volume 8.1 fL (7.4-10.4); Platelet Count 944 K/uL (130-400); RDW Standard Deviation 52.4 fL (36.4-46.3); Red Blood Count 3.43 M/uL (4.7-6.1); White Blood Count 37.32 K/uL (4.8-10.8)
[2021-02-22 14:33] LABS: INR 1.1 (0.9-1.1); Partial Thromboplastin Ratio 0.9; Partial Thromboplastin Time 23.4 Seconds (21.0-31.0); Prothrombin Time 10.8 Seconds (9.0-12.0)
[2021-02-22 14:34] LABS: Influenza A virus by PCR Negative (Neg); Influenza B virus by PCR Negative (Neg); RSV by PCR Negative (Neg); SARS CoV2 RNA(COVID-19) InHosp NEGATIVE (Negative)
[2021-02-22 14:34] LABS: Basophils # (auto) 0.03 K/uL (0-0.2); Basophils % (auto) 0.1 %; Echinocytes 1+; Eosinophils # (auto) 0.21 K/uL (0-0.5); Eosinophils % (auto) 0.6 %; Hypochromasia Present; Immature Granulocytes % (auto) 0.8 %; Lymphocytes # (auto) 1.42 K/uL (1.2-3.4); Lymphocytes % (auto) 3.8 %; Monocytes # (auto) 1.48 K/uL (0.11-0.59); Neutrophils # (auto) 33.88 K/uL (1.4-6.5); Neutrophils % (auto) 90.7 %
[2021-02-22 14:38] LABS: Albumin Globulin Ratio 0.3 (0.9-2); Albumin Level 1.7 gm/dl (3.4-5.0); BUN Creatinine Ratio 13.7 (10-20); Bilirubin,Total 0.4 mg/dl (0.2-1); Calcium 12.9 mg/dl (8.5-10.1); Creatinine Clr Calc Pharmacy 47.5 ml/min; Est GFR (African American) 66.3; Est GFR (Non-African American) 57.2; Globulin 5.1 gm/dl (2.5-4.0); Magnesium 2.2 mg/dl (1.8-2.4); Potassium 4.5 mmol/L (3.5-5.1); Total Protein 6.8 gm/dl (6.4-8.2)
[2021-02-22] MEDS ORDERED: PIPERACILL/TAZOBAC CONSULT ACTIVE PRN (14:45)
[2021-02-22] MEDS ORDERED: PIPERACILLIN/TAZOBACTAM 4.5 GM/120 ML BAG IV ONE (14:45)
--- NOTE | 2021-02-22 14:53 | CT Scan Report ---
ABDOMEN AND PELVIS CT WITHOUT CONTRAST CT DOSE: 267.79 mGycm HISTORY: Acute right-sided flank pain rt flank pain TECHNIQUE: Multiaxial CT images of the abdomen and pelvis were performed without contrast. A dose lo wering technique was utilized adhering to the principles of ALARA. COMPARISON STUDY: CT abdomen and pelvis 02/01/2021 FINDINGS: Clear lung bases. Limited exam without the use of contrast. The imaged inferior cardiac chambers are unremarkable. Trace pericardial effusion. Unremarkable spleen and gallbladder. There is edema surroun ding the distal pancreatic body and tail with edema and trace fluid within the left mid abdomen. Hete rogeneous liver with hepatic steatosis. Left nephrectomy. Right-sided percutaneous nephrostomy is an unchanged positioning. Unchanged 8 mm ca lcification of the inferior pole right kidney. Moderate sided hydroureteronephrosis appears stable to mildly progressed. Large heterogeneous pelvic mass measuring approximately 13.0 x 13.2 cm is again n oted involving the midline pelvis. This contains the Lim catheter, intraluminal gas and numerous ad jacent bowel loops. Adjacent surgical clips. Postoperative changes from cystectomy and prostatectomy with neobladder formation. No significant change from comparison. Postoperative changes of the bowel with diverting ostomies. Multifocal areas of bowel wall thickening redemonstrated. No bowel obstruction. Generalized body wall edema. No acute fracture. Phlegmonous ch jayda within the right perineal distribution without drainable fluid collection. Previously noted enha ncing fluid collections of the left psoas and iliacs distributions are not well visualized without th e use of contrast. IMPRESSION: 1. Limited exam without the use of contrast. 2. Increased amount of edema and small volume free fluid within the upper to mid abdomen. Correlate w ith lipase to exclude acute pancreatitis. 3. Large heterogeneous mass of the midline pelvis involving numerous adjacent bowel loops demonstrate s an increased amount of gas. Contain and bowel perforation and/or infection is within the differenti al. 4. Previously described fluid collections of the left psoas and iliacus musculature are not well seen without the use of contrast. 5. Phlegmon of the right perineal tissues has progressed from comparison. 6. Right-sided percutaneous nephrostomy with mildly progressed moderate hydroureteronephrosis. 7. Prior cystectomy and prostatectomy with neobladder formation. Prior left nephrectomy with divertin g ostomies. 8. Additional findings as above. ACT 112: Negative or not required by law. The above report was generated using voice recognition software. It may contain grammatical, syntax o r spelling errors. Electronically signed by: Cipriano Duran M.D. 02/22/2021 2:52 PM
[2021-02-22] MEDS ORDERED: SODIUM CHLORIDE 0.9% 500 ML IV ONE (15:01)
[2021-02-22 16:31] LABS: Base Excess VBG -0.9 mEq/L; HCO3 VBG 25 mmol/L; PCO2 VBG 48 mmHg (38-50); PO2 VBG 17 mmHg; pH VBG 7.34 (7.36-7.41)
--- NOTE | 2021-02-22 16:33 | History & Physical Report ---
Date of Service February 22, 2021 Assessment & Plan (1) Intractable abdominal pain: Has a very large intra-abdominal mass/fluid collection on CT. Suspect this is both recurrent cancer and infectious fluid collection. He has been on zosyn IV since hospital d/c 1 month ago and despite such he has worsened. Now with severe leukocytosis, sepsis, etc. Seen by gen surg recently in outpatient clinic; NOT a surgical candidate for this fluid collection. Hypercalcemia could be contributing to abd pain as well. Lipase is elevated and there is ?acute pancreatitis on CT. Thus, pancreatitis may be contributing to pain. Given the complexity of his problems and situation we are truly at a point where palliation is best option. Plan -- Cont fentanyl patch 75mcg q3d as previous. Confirmed with LIN Rudolph that ASSISTANT PRESS OPERATOR OFFSET morphine CAN be used at our [facility]. Thus, start ASSISTANT PRESS OPERATOR OFFSET morphine with 1mg demands and lock-out q20min. Adjust as needed. Defer on basal for now. To help control infection which might help pain ultimately - cont zosyn, add dapto for MRSA/enterococcus coverage. (2) Intra-abdominal fluid collection: See above Not a surgical candidate (3) Sepsis: 2nd to infected intra-abdominal fluid collection and phlegmon of perineal tissue zosyn/dapto for palliative purposes (4) Phlegmon: perineal, as seen on CT pelvis. zosyn/dapto - for palliative purposes in hopes it may help pain (5) Pancreatitis: lipase [address] with ?acute pancreatitis as well. Hypercalcemia may have caused the pancreatitis. Treating hypercalcemia with IV fluids & zometa. ASSISTANT PRESS OPERATOR OFFSET morphine for pain. (6) Bladder cancer: Recurrent, advanced. Transition to palliative care/comfort. 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 Again I confirmed with the nursing slate splitting supervisor at [facility] that they indeed can obtain and utilize ASSISTANT PRESS OPERATOR OFFSET morphine for end of life care. Additionally the care home administration HAS APPROVED a zoom session between patient and his /children/grand-children. The care team here simply needs to contact the care home this weekend to get that zoom option set up for patient. If patient declines would simply keep here for end-of-life care. If patient stabilizes enough to return to [facility] then that would be an option too. History of Present Illness Chief Complaint: intractable pain Primary Care Provider: [facility] 45yo male with known metastatic bladder cancer presenting with intractable back pain, abdominal pain, failure to thrive, nausea, severe anorexia, weakness/fatigue, depression. Has been receiving IV zosyn via LUE PICC line since his previous hospitalization at [facility] in early January 2021 to treat a suspected intra-abdominal infection/fluid collection. Records indicate he was just seen by Dr Juan F Hammond in the general surgery clinic to determine if he was a surgical candidate to debulk the mass in his abdomen and/or drain the suspected fluid collection. Surgery was ruled out as an option, and he was referred to radiation oncology for consideration of radiation for his abdominal pain. Patient reports he has not seen radiation oncology yet. During my admission assessment the patient states he knows his time is limited, that he has "accepted it", wishes to see his and 4 kids (they live in [place], [place]), and simply wants to not be in pain. I called and spoke with the assistant professor of nursing at [facility] and she confirmed they CAN use ASSISTANT PRESS OPERATOR OFFSET morphine for end-of-life care. Additionally, the care home administration has approved a zoom call between the patient and his /children given his end-of-life situation. We simply need to contact the care home to set this up. Oncology history -- Known history of bladder cancer. Dx late 2017 or early 2017. Underwent chemotherapy in [place] which ended in 12/2017. At some point, he had a cystectomy, left nephrectomy, prostatectomy, and neobladder formation at [facility] also in 2018. He was admitted in 11/2020 with Cov[facility] and seen by our urology team who recommended return to [facility] for correction of a colovesicular fistula. At some point, he went to [facility] and underwent a large procedure where he had a ileostomy and right nephrostomy tube placement. Allergies Allergy/AdvReac Type Severity Reaction Status Date / Time No Known Allergies Allergy Verified 02/01/21 09:06 Home Medications Medication Instructions Recorded Confirmed Type cholecalciferol (vitamin D3) 25 mcg PO DAILY 11/19/20 02/01/21 History [Vitamin D3] Cerovite Jr 1 tab PO DAILY 01/10/21 02/01/21 History enoxaparin 40 mg SUBCUT DAILY 01/10/21 02/01/21 History food supplemt, lactose-reduced 1 ea PO TID 01/10/21 02/01/21 History pantoprazole 40 mg PO DAILY 01/10/21 02/01/21 History fentanyl 75 mcg TRANSDERMAL Q3D 210 Days ea 01/17/21 02/01/21 Rx oxycodone-acetaminophen [Endocet] 1 tab PO Q6H PRN 49 Days tab 01/17/21 02/01/21 Rx xaxefzklqleo-ibqugfkeqs-yjcbcz 3.375 g IV Q8H 49 Days 01/17/21 02/01/21 Rx [Zosyn in dextrose (iso-osm)] Past Med/Surg History Medical History (Updated 02/23/21 @ 08:04 by Sha Andrade) Bladder cancer Hypercalcemia Thrombocytosis UTI (urinary tract infection) Surgical History (Updated 02/23/21 @ 07:47 by Sha Andrade) H/O total cystectomy History of bladder surgery Neobladder anastomosis History of nephrectomy Left Ileostomy status Nephrostomy status Right Surgically created abdominal mucous fistula Family History (Updated 02/22/21 @ 16:31 by Sha Andrade) Father Hypertension Mother Diabetes Social History (Updated 02/22/21 @ 16:31 by Sha Andrade) Smoking Status: Former smoker Second Hand Exposure: No; Hx Alcohol Use: No Hx Substance Use: No Preferred Language: Spanish Communication Ability: Effective Geophysical Party Chief Required: No Beliefs That Will Affect Care: None marital status: Current Living Situation: Other Current Living Situation Comment: care home How many Children do You have: 4 Other Information That Helps Us Care for You: No Feels Safe at Home: Yes Safety Concerns: Feels Safe At This Time Assistive Devices: None Review of Systems Constitutional: + fatigue, + malaise, + weakness, + anorexia and + weight loss Eyes: no worsening vision Ear, Nose, Mouth, Throat: + dry mouth Respiratory: + dyspnea Cardiovascular: no chest pain Gastrointestinal: + abdominal pain and + nausea Genitourinary: + flank pain Musculoskeletal: + back pain Integumentary: no rash Neurologic: + generalized weakness Psychiatric: + depression Endocrine: no diabetes Hematologic / Lymphatic: no easy bruising Physical Exam Constitutional: + acute distress (2nd back/abdominal pain), + ill appearing, + cachectic and + frail appearing; no altered mental status Eyes: PERRL ENMT: Mouth: + dry oral mucous membranes Neck: trachea midline, no thyromegaly Respiratory: no respiratory distress Auscultation: + diminished lung sounds (Bases); no crackles and no wheezes Cardiovascular: Rate/Rhythm: regular rhythm and + tachycardic Heart Sounds: normal S1 and normal S2 Vessels: posterior tibial pulses present and dorsalis pedis pulses present; no JVD Extremities: + edema (Trace b/l ) Gastrointestinal (Abdomen): Inspection/Auscultation: + abdomen distended and normal bowel sounds Percussion/Palpation: + abdomen tender (Diffuse) percutaneous nephrostomy tube on right; urine in nephrostomy bag is cloudy. ileostomy with liquid stool. mucous fistulal left abdomen with clean stoma. surgical scars on abdomen. diffuse tenderness. right flank pain as well to palpation. Musculoskeletal: no cyanosis or clubbing, extremities motor strength 5/5 Skin: + pallor Neurologic: deep tendon reflexes 2+ bilaterally and moves all extremities Psychiatric: Orientation: alert and oriented x 3 Affect: + depressed affect Genitourinary: da silva in place w/ cloudy urine Lymphatic: no cervical lymphadenopathy Results & Data Results & Data ([facility]) Vital Signs (Past 12 Hours) Vital Signs Temp Pulse Resp BP Pulse Ox 02/22/21 16:00 121 H 19 99 02/22/21 15:50 117 H 15 95 02/22/21 15:40 116 H 14 94 02/22/21 15:30 118 H 15 118/86 95 02/22/21 15:20 126 H 17 02/22/21 15:10 120 H 14 02/22/21 15:00 123 H 13 114/81 02/22/21 14:50 119 H 15 02/22/21 14:40 119 H 14 02/22/21 14:30 119 H 18 114/77 02/22/21 14:20 118 H 18 96 02/22/21 14:16 118 H 20 96 02/22/21 14:00 128/89 02/22/21 13:50 113 H 16 97 02/22/21 13:40 113 H 16 02/22/21 13:30 113 H 16 02/22/21 13:20 113 H 23 91 02/22/21 13:10 114 H 21 02/22/21 13:00 113 H 16 112/80 98 02/22/21 12:50 116 H 23 98 02/22/21 12:42 99 02/22/21 12:40 115 H 16 98 02/22/21 12:30 115 H 19 98 02/22/21 12:20 117 H 18 98 02/22/21 12:10 117 H 15 96 02/22/21 12:00 117 H 21 97 02/22/21 11:58 119 H 19 98 02/22/21 11:49 36.6 C 119 H 16 103/67 99 02/22/21 11:47 120 H 19 103/67 98 Laboratory Results Laboratory Results - last 24 hr 02/22/21 02/22/21 02/22/21 12:25 12:25 13:19 WBC RBC Hgb Hct MCV MCH MCHC RDW Std Deviation RDW Coeff of Chris Plt Count MPV Immature Gran % (Auto) Neut % (Auto) Lymph % (Auto) [place] % (Auto) Eos % (Auto) Baso % (Auto) Neut # (Auto) Lymph # (Auto) [place] # (Auto) Eos # (Auto) Baso # (Auto) Immature Gran # (Auto) Hypochromasia Echinocytes PT INR APTT PTT Ratio VBG pH VBG pCO2 VBG pO2 VBG HCO3 VBG O2 Saturation VBG Base Excess Barometric Pressure Sodium Potassium Chloride Carbon Dioxide Anion Gap BUN Creatinine Est Cr Clr Drug Dosing Est GFR ( Amer) Est GFR (Non-Af Amer) BUN/Creatinine Ratio Glucose Lactate Calcium Magnesium Total Bilirubin AST ALT Alkaline Phosphatase Total Protein Albumin Globulin Albumin/Globulin Ratio Lipase Urine Color Yellow Yellow Urine Appearance Turbid A Turbid A Urine pH 8.0 H 5.5 Ur Specific [place]ancock 1.014 1.024 Urine Protein 3+ H 1+ H Urine Glucose (UA) Negative Negative Urine Ketones Negative Negative Urine Blood 3+ H 2+ H Urine Nitrite Negative Negative Urine Bilirubin Negative Negative Urine Urobilinogen Negative Negative Ur Leukocyte Esterase 3+ H 3+ H Urine WBC (Auto) >30 H >30 H Urine RBC (Auto) >30 H >30 H U Hyaline Cast (Auto) 1-5 1-5 U Epithel Cells (Auto) >30 H >30 H Urine Bacteria (Auto) 4+ H 2+ H Calcium Oxalate Crystal Present A Urine Yeast Not Reportable Nasal Screen MRSA (PCR) COVID-19 Eval Order [facility]Rsv at [facility] SARS-CoV-2 (PCR) Influenza Type A (PCR) Influenza Type B (PCR) RSV (RT-PCR) 02/22/21 02/22/21 02/22/21 13:19 13:53 13:53 WBC 37.32 H* RBC 3.43 L Hgb 9.0 L Hct 29.2 L MCV 85.1 MCH 26.2 MCHC 30.8 L RDW Std Deviation 52.4 H RDW Coeff of Chris 17.0 H Plt Count 944 H MPV 8.1 Immature Gran % (Auto) 0.8 Neut % (Auto) 90.7 Lymph % (Auto) 3.8 [place] % (Auto) 4.0 Eos % (Auto) 0.6 Baso % (Auto) 0.1 Neut # (Auto) 33.88 H Lymph # (Auto) 1.42 [place] # (Auto) 1.48 H Eos # (Auto) 0.21 Baso # (Auto) 0.03 Immature Gran # (Auto) 0.30 H Hypochromasia Present Echinocytes 1+ PT 10.8 INR 1.1 APTT 23.4 PTT Ratio 0.9 VBG pH VBG pCO2 VBG pO2 VBG HCO3 VBG O2 Saturation VBG Base Excess Barometric Pressure Sodium Potassium Chloride Carbon Dioxide Anion Gap BUN Creatinine Est Cr Clr Drug Dosing Est GFR ( Amer) Est GFR (Non-Af Amer) BUN/Creatinine Ratio Glucose Lactate Calcium Magnesium Total Bilirubin AST ALT Alkaline Phosphatase Total Protein Albumin Globulin Albumin/Globulin Ratio Lipase Urine Color Urine Appearance Urine pH Ur Specific Hancock Urine Protein Urine Glucose (UA) Urine Ketones Urine Blood Urine Nitrite Urine Bilirubin Urine Urobilinogen Ur Leukocyte Esterase Urine WBC (Auto) Urine RBC (Auto) U Hyaline Cast (Auto) U Epithel Cells (Auto) Urine Bacteria (Auto) Calcium Oxalate Crystal Urine Yeast Nasal Screen MRSA (PCR) COVID-19 Eval Order SARS-CoV-2 (PCR) NEGATIVE Influenza Type A (PCR) Negative Influenza Type B (PCR) Negative RSV (RT-PCR) Negative 02/22/21 02/22/21 02/22/21 13:53 13:53 16:07 WBC RBC Hgb Hct MCV MCH MCHC RDW Std Deviation RDW Coeff of Chris Plt Count MPV Immature Gran % (Auto) Neut % (Auto) Lymph % (Auto) [place] % (Auto) Eos % (Auto) Baso % (Auto) Neut # (Auto) Lymph # (Auto) [place] # (Auto) Eos # (Auto) Baso # (Auto) Immature Gran # (Auto) Hypochromasia Echinocytes PT INR APTT PTT Ratio VBG pH VBG pCO2 VBG pO2 VBG HCO3 VBG O2 Saturation VBG Base Excess Barometric Pressure Sodium 132 L Potassium 4.5 Chloride 102 Carbon Dioxide 21 Anion Gap 8.0 BUN 20 H Creatinine 1.47 H Est Cr Clr Drug Dosing 47.5 Est GFR ( Amer) 66.3 Est GFR (Non-Af Amer) 57.2 BUN/Creatinine Ratio 13.7 Glucose 83 Lactate 2.4 H* Calcium 12.9 H* Magnesium 2.2 Total Bilirubin 0.4 AST 14 L ALT 43 Alkaline Phosphatase 515 H Total Protein 6.8 Albumin 1.7 L Globulin 5.1 H Albumin/Globulin Ratio 0.3 L Lipase 1551 H Urine Color Urine Appearance Urine pH Ur Specific Hancock Urine Protein Urine Glucose (UA) Urine Ketones Urine Blood Urine Nitrite Urine Bilirubin Urine Urobilinogen Ur Leukocyte Esterase Urine WBC (Auto) Urine RBC (Auto) U Hyaline Cast (Auto) U Epithel Cells (Auto) Urine Bacteria (Auto) Calcium Oxalate Crystal Urine Yeast Nasal Screen MRSA (PCR) COVID-19 Eval Order SARS-CoV-2 (PCR) Influenza Type A (PCR) Influenza Type B (PCR) RSV (RT-PCR) 02/22/21 02/22/21 02/22/21 16:07 16:07 Unknown WBC RBC Hgb Hct MCV MCH MCHC RDW Std Deviation RDW Coeff of Chris Plt Count MPV Immature Gran % (Auto) Neut % (Auto) Lymph % (Auto) [place] % (Auto) Eos % (Auto) Baso % (Auto) Neut # (Auto) Lymph # (Auto) [place] # (Auto) Eos # (Auto) Baso # (Auto) Immature Gran # (Auto) Hypochromasia Echinocytes PT INR APTT PTT Ratio VBG pH 7.34 L VBG pCO2 48 VBG pO2 17 VBG HCO3 25 VBG O2 Saturation < 60.0 VBG Base Excess -0.9 Barometric Pressure 732.9 Sodium Potassium Chloride Carbon Dioxide Anion Gap BUN Creatinine Est Cr Clr Drug Dosing Est GFR ( Amer) Est GFR (Non-Af Amer) BUN/Creatinine Ratio Glucose Lactate 2.5 H* Calcium Magnesium Total Bilirubin AST ALT Alkaline Phosphatase Total Protein Albumin Globulin Albumin/Globulin Ratio Lipase Urine Color Urine Appearance Urine pH Ur Specific [place] Urine Protein Urine Glucose (UA) Urine Ketones Urine Blood Urine Nitrite Urine Bilirubin Urine Urobilinogen Ur Leukocyte Esterase Urine WBC (Auto) Urine RBC (Auto) U Hyaline Cast (Auto) U Epithel Cells (Auto) Urine Bacteria (Auto) Calcium Oxalate Crystal Urine Yeast Nasal Screen MRSA (PCR) Negative COVID-19 Eval Order SARS-CoV-2 (PCR) Influenza Type A (PCR) Influenza Type B (PCR) RSV (RT-PCR) Diagnostic Findings Chest X-Ray 02/22/21 12:30 XR chest 1V portable HISTORY: SEPSIS COMPARISON: Chest 01/10/2021. FINDINGS: A left PICC terminates at the distal SVC. There is mild elevation of the right hemidiaphragm, unchanged. The lungs are clear. The heart is normal in size. No evidence for pulmonary edema. IMPRESSION: No acute process. ACT 112: Negative or not required by law. Electronically signed by: Crow Johnson M.D. 02/22/2021 1:42 PM Abdomen/Pelvis CT 02/22/21 12:[address] WITHOUT CONTRAST CT DOSE: 267.79 mGycm HISTORY: Acute right-sided flank pain rt flank pain TECHNIQUE: Multiaxial CT images of the abdomen and pelvis were performed without contrast. A dose lowering technique was utilized adhering to the principles of ALARA. COMPARISON STUDY: CT abdomen and pelvis 02/01/2021 FINDINGS: Clear lung bases. Limited exam without the use of contrast. The imaged inferior cardiac chambers are unremarkable. Trace pericardial effusion. Unremarkable spleen and gallbladder. There is edema surrounding the distal pancreatic body and tail with edema and trace fluid within the left mid abdomen. Heterogeneous liver with hepatic steatosis. Left nephrectomy. Right-sided percutaneous nephrostomy is an unchanged positioning. Unchanged 8 mm calcification of the inferior pole right kidney. Moderate sided hydroureteronephrosis appears stable to mildly progressed. Large heterogeneous pelvic mass measuring approximately 13.0 x 13.2 cm is again noted involving the midline pelvis. This contains the Da Silva catheter, intraluminal gas and numerous adjacent bowel loops. Adjacent surgical clips. Postoperative changes from cystectomy and prostatectomy with neobladder formation. No significant change from comparison. Postoperative changes of the bowel with diverting ostomies. Multifocal areas of bowel wall thickening redemonstrated. No bowel obstruction. Generalized body wa ll edema. No acute fracture. Phlegmonous change within the right perineal distribution without drainable fluid collection. Previously noted enhancing fluid collections of the left psoas and iliacs distributions are not well visualized without the use of contrast. IMPRESSION: 1. Limited exam without the use of contrast. 2. Increased amount of edema and small volume free fluid within the upper to mid abdomen. Correlate with lipase to exclude acute pancreatitis. 3. Large heterogeneous mass of the midline pelvis involving numerous adjacent bowel loops demonstrates an increased amount of gas. Contain and bowel perforation and/or infection is within the differential. 4. Previously described fluid collections of the left psoas and iliacus musculature are not well seen without the use of contrast. 5. Phlegmon of the right perineal tissues has progressed from comparison. 6. Right-sided percutaneous nephrostomy with mildly progressed moderate hydroureteronephrosis. 7. Prior cystectomy and prostatectomy with neobladder formation. Prior left nephrectomy with diverting ostomies. 8. Additional findings as above. ACT 112: Negative or not required by law. The above report was generated using voice recognition software. It may contain grammatical, syntax or spelling errors. Electronically signed by: Cipriano Duran M.D. 02/22/2021 2:52 PM Code Status & VTE Plan Code Status DNR/DNI VTE Prophylaxis Plan VTE Prophylaxis will be ordered: No Reason for no VTE drug order: Treatment not indicated Reason for no VTE mechanical prophylaxis: Treatment not indicated PG Care Time/CCT Total # of Minutes Spent Total Time Spent with Patient: Total time spent is greater than 50% in coordi [facility] (as documented) at patient's floor/unit and/or counseling patient: Coding Level of Care Code 09587 Initial Inpt Care Lvl 3 Diagnoses Intractable abdominal pain R10.9 Intra-abdominal fluid collection R18.8 Sepsis A41.9; R65.20 Sepsis acute organ dysfunction status: with acute organ dysfunction Sepsis type: sepsis due to unspecified organism Severe sepsis acute organ dysfunction type: unspecified Severe sepsis shock status: unspecified Phlegmon L02.91 Pancreatitis K85.90 Bladder cancer C67.9 Thrombocytosis D47.3 Hypercalcemia E83.52 H/O total cystectomy Z90.6 Nephrostomy status Z93.6 Ileostomy status Z93.2 Surgically created abdominal mucous fistula Z93.4 History of nephrectomy Z90.5 Severe protein-calorie malnutrition E43 Hydronephrosis, right N13.30 Palliative care patient Z51.5 (1) Sepsis Sepsis acute organ dysfunction status: with acute organ dysfunction Sepsis type: sepsis due to unspecified organism Severe sepsis acute organ dysfunction type: unspecified Severe sepsis shock status: unspecified Qualified Code(s): A41.9 - Sepsis, unspecified organism; R65.20 - Severe sepsis without septic shock
[2021-02-22 16:42] LABS: Oxygen Saturation VBG < 60.0 %
[2021-02-22] MEDS: SODIUM CHLORIDE 0.9% 1000ML 1,000 ML IV SCH ×2 (17:19→18:55)
[2021-02-22] MEDS ORDERED: MoRPHine Bolus from PCA IV STA (18:06)
[2021-02-22] MEDS ORDERED: [UNRECOGNIZED DRUG - OTHER] IV SCH (18:06)
[2021-02-22] MEDS ORDERED: MoRPHine SULFATE PCA 30 MG/30 ML IV PRN (18:06)
[2021-02-22] MEDS ORDERED: NALOXONE HCL 0.4 MG/1 ML VIAL/CARP IV PRN (18:06)
[2021-02-22] MEDS ORDERED: ONDANSETRON INJ 2 MG/ML 2 ML VIAL IV PRN (18:06)
[2021-02-22] MEDS ORDERED: DAPTOmycin 300 MG in SYRINGE 0 ML IV SCH (19:00)
[2021-02-22] MEDS ORDERED: fentaNYL 75 MCG/HR TDSY TD SCH (20:00)
[2021-02-22] MEDS ORDERED: ZOLEDRONIC ACID 4 MG in 0.9 % SODIUM CHLORIDE 100 ML IV ONE (20:00)
[2021-02-22] MEDS: PIPERACILLIN/TAZOBACTAM 3.375 GM in DEXTROSE 5% 100 ML IV SCH (20:24)
[2021-02-22] MEDS: FAMOTIDINE 20 MG in SYRINGE 3 ML IV SCH (20:24)
[2021-02-22] MEDS: CHECK fentaNYL PATCH PLACEMENT SCH (23:26)
[2021-02-23] MEDS: PIPERACILLIN/TAZOBACTAM 3.375 GM in DEXTROSE 5% 100 ML IV SCH ×3 (04:08→20:02)
[2021-02-23] MEDS: SODIUM CHLORIDE 0.9% 1000ML 1,000 ML IV SCH ×5 (04:09→20:34)
--- NOTE | 2021-02-23 07:27 | Electrocardiogram Report ---
Test Reason : Blood Pressure : / mmHG Vent. Rate : 117 BPM Atrial Rate : 117 BPM P-R Int : 130 ms QRS Dur : 076 ms QT Int : 294 ms P-R-T Axes : 056 031 057 degrees QTc Int : 410 ms Sinus tachycardia Cannot rule out Anterior infarct (cited on or before 22-FEB-2021) Abnormal ECG When compared with ECG of 22-FEB-2021 12:18, (unconfirmed) No significant change was found Confirmed by Judd Galeas ([id number]) on 02/23/2021 7:27:00 AM Referred By: Klaudia SCI Confirmed By:Judd Galeas
[2021-02-23] MEDS: CHECK fentaNYL PATCH PLACEMENT SCH ×2 (07:44→15:30)
[2021-02-23] MEDS: FAMOTIDINE 20 MG in SYRINGE 3 ML IV SCH ×2 (08:00→20:03)
[2021-02-23 08:24] LABS: Hematocrit (blood only) 25.7 % (42-52); Hemoglobin 8.2 g/dL (14.0-18.0); Mean Corpuscular Hemoglobin 26.7 pg (25-34); Mean Corpuscular Hgb Conc 31.9 g/dL (32-36); Mean Corpuscular Volume 83.7 fL (80-100); Mean Platelet Volume 7.7 fL (7.4-10.4); Platelet Count 1083 K/uL (130-400); RDW Coefficient of Variation 17.2 % (11.5-14.5); RDW Standard Deviation 52.8 fL (36.4-46.3); Red Blood Count 3.07 M/uL (4.7-6.1)
[2021-02-23 08:41] LABS: Basophils # (auto) 0.02 K/uL (0-0.2); Eosinophils # (auto) 0.11 K/uL (0-0.5); Eosinophils % (auto) 0.3 %; Immature Granulocytes # (auto) 0.25 K/uL (0.00-0.02); Immature Granulocytes % (auto) 0.6 %; Lymphocytes # (auto) 1.15 K/uL (1.2-3.4); Lymphocytes % (auto) 2.7 %; Monocytes # (auto) 1.37 K/uL (0.11-0.59); Monocytes % (auto) 3.3 %; Neutrophils % (auto) 93.1 %
[2021-02-23 09:03] LABS: Albumin Globulin Ratio 0.3 (0.9-2); Albumin Level 1.6 gm/dl (3.4-5.0); BUN Creatinine Ratio 15.2 (10-20); Bilirubin,Total 0.4 mg/dl (0.2-1); C Reactive Protein 24.4 mg/dl (0-0.29); Calcium 12.5 mg/dl (8.5-10.1); Creatinine Clr Calc Pharmacy 61.1 ml/min; Est GFR (African American) 79.9; Est GFR (Non-African American) 68.9; Globulin 4.7 gm/dl (2.5-4.0); Potassium 4.1 mmol/L (3.5-5.1); Total Protein 6.3 gm/dl (6.4-8.2)
[2021-02-23] MEDS ORDERED: MoRPHine SULFATE 4 MG/ML 1 ML CARP\\VIAL IV PRN (11:46)
[2021-02-23] MEDS ORDERED: MoRPHine SULFATE 2 MG/ML CARP IV PRN (11:46)
[2021-02-23] MEDS ORDERED: MoRPHine SULFATE 10 MG/0.5 ML UDP PO SCH (15:45)
[2021-02-23] MEDS ORDERED: DAPTOmycin 350 MG in SYRINGE 0 ML IV SCH (19:00)
--- NOTE | 2021-02-23 19:09 | Hospitalist Progress Note ---
Date of Service February 23, 2021 Assessment & Plan (1) Intractable abdominal pain: Has a very large intra-abdominal mass/fluid collection on CT. significant leukocytosis Suspect this is both recurrent cancer and infectious fluid collection. He has been on zosyn IV since hospital d/c 1 month ago and despite such he has worsened. Now with concern for sepsis, etc. Seen by gen surg recently in outpatient clinic; NOT a surgical candidate for this fluid collection. Hypercalcemia could be contributing to abd pain as well. Lipase is elevated and there is ?acute pancreatitis on CT. Thus, pancreatitis may be contributing to pain. Given the complexity of his problems and situation we are truly at a point where palliation is best option. His terminal condition not amenable to any interventional correction Plan --start oral morphine 10 twice daily scheduled Tylenol Cont fentanyl patch 75mcg q3d as previous. Discussed with [facility] nursing staff and PA they feel that a SNOW SHOVELER cannot be accommodated at the [facility] and that more recommend oral morphine such as we would do with a home comfort care patient At this point time beginning oral morphine continue SNOW SHOVELER for on demand continue fentanyl patch can have scheduled Tylenol To help control infection which might help pain ultimately - cont zosyn, add dapto for MRSA/enterococcus coverage. (2) Intra-abdominal fluid collection: See above Not a surgical candidate (3) Sepsis: 2nd to infected intra-abdominal fluid collection and phlegmon of perineal tissue zosyn/dapto for palliative purposes (4) Phlegmon: perineal, as seen on CT pelvis. zosyn/dapto - for palliative purposes in hopes it may help pain (5) Pancreatitis: lipase [address] with ?acute pancreatitis as well. Hypercalcemia may have caused the pancreatitis. Treating hypercalcemia with IV fluids & zometa. SNOW SHOVELER morphine for pain. (6) Bladder cancer: Recurrent, advanced. Transition to palliative care/comfort. 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 Escalate medications for comfort measures If patient declines would simply keep here for end-of-life care. If patient stabilizes enough to return to [facility] then that would be an option too. Admission and Anticipated Discharge Date Admission Date: February 22, 2021 Subjective Patient is in significant pain however not pushing his SNOW SHOVELER pump. I discussed the patient's care with him at the bedside and presence of the guard and the nurses. He says he just wants to go back to the residential. I states that he go back to residential he may not get the same care or pain control he says he just wants go to residential I said he may if he goes back to residential he said he did not care about that he wants elective present. I spoke to the residential they are concerned they do not have enough medicine to control symptoms until Thursday. Subsequently we will try to escalate him to oral pain control with morphine elixir to get him in a comfortable state. Patient has a significant abdominal fluid collection which is likely infected and is not amenable to operation or drainage. This is a terminal condition and will end with his demise Review of Systems Review of Systems: Difficult distress fatigue and lethargy no headache, blurry or double vision no speech or swallowing issues no chest pain, pressure or palpitations Rhythm pain escalates Significant abdominal pain worse with movement and exam No change in urine output from urostomy no focal joint pain or swelling no back pain, CVA tenderness or radicular pain no bruising, bleeding or rashes no focal signs of weakness or numbness or altered sensation Patient wants to go to at the residential Physical Exam Physical Exam: The patient appeared chronically ill and in moderate pain Vital signs as documented. Head exam is normocephalic atraumatic no scleral icterus Neck is without JVD, thyromegaly, or carotid bruits. Lungs are minutes at the bases Cardiac exam, echocardiogram time Abdominal exam bowel sounds are present he has a ileostomy tube and a colostomy bag in his abdomen Extremities are nonedematous and both pedal pulses are present Neurologic exam is alert and lethargic from pain control Results & Data Results & Data ([facility]) Vital Signs (Past 12 Hours) Vital Signs Temp Pulse Resp BP Pulse Ox 02/23/21 15:25 97.7 F 116 H 18 115/77 98 02/23/21 12:31 98.1 F 116 H 18 111/78 100 02/23/21 07:41 98.4 F 113 H 18 116/73 99 PG Care Time/CCT Total # of Minutes Spent Total Time Spent with Patient: Total time spent is greater than 50% in coordination of care (as documented) at patient's floor/unit and/or counseling patient: Coding Level of Care Code 20042 Subseq Hosp Care Lvl 3 Diagnoses Intractable abdominal pain R10.9 Intra-abdominal fluid collection R18.8 Sepsis A41.9; R65.20 Sepsis acute organ dysfunction status: with acute organ dysfunction Sepsis type: sepsis due to unspecified organism Severe sepsis acute organ dysfunction type: unspecified Severe sepsis shock status: unspecified Phlegmon L02.91 Pancreatitis K85.90 Bladder cancer C67.9 Thrombocytosis D47.3 Hypercalcemia E83.52 H/O total cystectomy Z90.6 Nephrostomy status Z93.6 Ileostomy status Z93.2 Surgically created abdominal mucous fistula Z93.4 History of nephrectomy Z90.5 Severe protein-calorie malnutrition E43 Hydronephrosis, right N13.30 Palliative care patient Z51.5 (1) Sepsis Sepsis acute organ dysfunction status: with acute organ dysfunction Sepsis type: sepsis due to unspecified organism Severe sepsis acute organ dysfunction type: unspecified Severe sepsis shock status: unspecified Qualified Code(s): A41.9 - Sepsis, unspecified organism; R65.20 - Severe sepsis without septic shock
[2021-02-23] MEDS: ACETAMINOPHEN 500 MG TAB PO SCH (20:05)
[2021-02-23] MEDS: MoRPHine SULFATE 10 MG/0.5 ML UDP PO SCH (20:08)
[2021-02-24] MEDS: CHECK fentaNYL PATCH PLACEMENT SCH ×2 (00:21→07:24)
[2021-02-24] MEDS: SODIUM CHLORIDE 0.9% 1000ML 1,000 ML IV SCH ×2 (01:25→06:29)
[2021-02-24] MEDS: PIPERACILLIN/TAZOBACTAM 3.375 GM in DEXTROSE 5% 100 ML IV SCH (03:18)
[2021-02-24] MEDS: ACETAMINOPHEN 500 MG TAB PO SCH ×2 (09:22→14:37)
[2021-02-24] MEDS: MoRPHine SULFATE 10 MG/0.5 ML UDP PO SCH (09:27)
[2021-02-24] MEDS: FAMOTIDINE 20 MG in SYRINGE 3 ML IV SCH (09:28)
--- NOTE | 2021-02-24 13:46 | Discharge Summary ---
Date of Service February 24, 2021 Admission HPI Per Admitting Provider 45yo male with known metastatic bladder cancer presenting with intractable back pain, abdominal pain, failure to thrive, nausea, severe anorexia, weakness/fatigue, depression. Has been receiving IV zosyn via LUE PICC line since his previous hospitalization at [facility] in early January 2021 to treat a suspected intra-abdominal infection/fluid collection. Records indicate he was just seen by Dr Juan F Hammond in the general surgery clinic to determine if he was a surgical candidate to debulk the mass in his abdomen and/or drain the suspected fluid collection. Surgery was ruled out as an option, and he was referred to radiation oncology for consideration of radiation for his abdominal pain. Patient reports he has not seen radiation oncology yet. During my admission assessment the patient states he knows his time is limited, that he has "accepted it", wishes to see his and 4 kids (they live in [place], [place]), and simply wants to not be in pain. I called and spoke with the director of professional services at [facility] and she confirmed they CAN use REHEATER morphine for end-of-life care. Additionally, the longterm administration has approved a zoom call between the patient and his /children given his end-of-life situation. We simply need to contact the longterm to set this up. Oncology history -- Known history of bladder cancer. Dx late 2017 or early 2018. Underwent chemotherapy in [place] which ended in 12/2017. At some point, he had a cystectomy, left nephrectomy, prostatectomy, and neobladder formation at [facility] also in 2018. He was admitted in 11/2020 with [facility] and seen by our urology team who recommended return to [facility] for correction of a colovesicular fistula. At some point, he went to [facility] and underwent a large procedure where he had a ileostomy and right nephrostomy tube placement. Principal Diagnosis non operable intra abdominal abscess cancer associated hypercalcemia cancer related pain request for non aggressive treatment pt request to return to longterm and understands he may soon Discharge Exam The patient appeared chronically ill debilitated and nearing comfort care measures Vital signs as documented. Lungs are diminished at the bases Cardiac exam, Rhythm is regular.. No murmurs, rubs or gallops. Abdominal exam reveals cystostomy and colostomy tube in place tender slightly firm hypoactive bowel sounds Patient seems withdrawn only when she does return to longterm Discharge Data Allergies Allergy/AdvReac Type Severity Reaction Status Date / Time No Known Allergies Allergy Verified 02/01/21 09:06 Consultations 02/22/21 15:08 ED Decision to Admit Stat Ordered Studies 02/22/21 12:33 CT abd pelvis wo con Stat Hospital Course (1) Intractable abdominal pain: Has a very large intra-abdominal mass/fluid collection on CT. significant leukocytosis Suspect this is both recurrent cancer and infectious fluid collection. He has been on zosyn IV since hospital d/c 1 month ago and despite such he has worsened. Now with concern for sepsis, etc. Seen by gen surg recently in outpatient clinic; NOT a surgical candidate for this fluid collection. This is a very difficult and sad case. All the patient wanted to do with return to longterm. He was seen by general surgery and deemed to be nonoperable candidate to drain what appears to be a fluid collection in his abdomen is most likely an abscess. Patient understands he cannot get the appropriate treatment to save his life. Patient had significant calcium elevation was given Zometa which will likely take a few days to work but be suboptimal in his overall plan of care to reduce his Calcium Over and over the patient stated he just wants to return to the present. I told him he would likely because he is not getting the aggressive care he would need to correct his medical problems he says he does not care he just wants to return to the present. His pain seem to be in control with morphine elixir 10 mg twice a day and Tylenol 1000 3 times daily. The morphine likely need to be adjusted. Patient will likely have worsening physical condition and decline however given his request not to be treated aggressively need to be admitted to the hospital would only be for palliative hospice needs with him to eventually here. Does not want to do that his wishes are to at the longterm subsequently I have contacted the longterm [facility] and physician assistant kitchen manager patient portal concierge and they will t [facility] the [facility] I completely expect him to decline and worsen physically because his conditions are not being treated. Based on his wishes we will continue his Zosyn therapy though I do believe this is futile therapy Plan --start oral morphine 10 twice daily scheduled Tylenol Cont fentanyl patch 75mcg q3d as previous. Discussed with [facility] nursing staff and PA they feel that a REHEATER cannot be accommodated at the [facility] and that more recommend oral morphine such as we would do with a home comfort care patient At this point time beginning oral morphine and tylenol scheduled, continue fentanyl patch To help control infection which might help pain ultimately - cont zosyn, as pt states he does not want to stop antibiotics at this town although he knows that he will likley soon (2) Intra-abdominal fluid collection: See above Not a surgical candidate (3) Sepsis: 2nd to infected intra-abdominal fluid collection and phlegmon of perineal tissue zosyn for palliative purposes (4) Phlegmon: perineal, as seen on CT pelvis. zosyn - for palliative purposes in hopes it may help pain (5) Pancreatitis: lipase [address] with ?acute pancreatitis as well. Hypercalcemia may have caused the pancreatitis. Treating hypercalcemia with zometa. morphine for pain. (6) Bladder cancer: Recurrent, advanced. Transition to palliative care/comfort. 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 PAIN & BACK PAIN Discharge Diagnosis: non operable intra abdominal abscess hypercalcemia cancer related pain request for non aggressive treatment pt request to return to longterm and understands he may soon Activity: Per Instructions section Activity Comment: comfort measures but pt wants antibiotics Non-emergency contact: Primary Care Provider Call non-emergency contact if: you have any medication questions Follow-up/Referrals: Klaudia CEBALLOS [Primary Care Provider] - Diet: Regular Addtl Attending Provider Instructions: This is a very difficult and sad case. All the patient wanted to do with return to longterm. He was seen by general surgery and deemed to be nonoperable candidate to drain what appears to be a fluid collection in his abdomen is most likely an abscess. Patient understands he cannot get the appropriate treatment to save his life. Patient had significant calcium elevation was given Zometa which will likely take a few days to work but be suboptimal in his overall plan of care to reduce his Calcium Over and over the patient stated he just wants to return to the present. I told him he would likely because he is not getting the aggressive care he would need to correct his medical problems he says he does not care he just wants to return to the present. His pain seem to be in control with morphine elixir 10 mg twice a day and Tylenol 1000 3 times daily. The morphine likely need to be adjusted. Patient will likely have worsening physical condition and decline however given his request not to be treated aggressively need to be admitted to the hospital would only be for palliative hospice needs with him to eventually here. Does not want to do that his wishes are to at the longterm subsequently I have contacted the [facility] and physician assistant kitchen manager patient portal concierge and they will [facility] I completely expect him to decline and worsen physically because his conditions are not being treated. Based on his wishes we will continue his Zosyn therapy though I do believe this is futile therapy Pending Studies at Discharge: Yes Stand-Alone Forms: My [facility] Skilled Items Patient informed of condition?: Yes Discharge Level of Care: Other Communicable Disease: No Discharge Prognosis: Deteriorating Lines: None Urinary Catheter: Yes Medications and DC Order Prescriptions: New morphine concentrate 100 mg/5 mL (20 mg/mL) Solution 10 mg PO BID Qty: 0.5 RF: 0 acetaminophen 500 mg Tablet 1,000 mg PO TID Qty: 90 RF: 0 Continued cholecalciferol (vitamin D3) [Vitamin D3] 25 mcg (1,000 unit) Capsule 25 mcg PO DAILY RF: 0 pantoprazole 40 mg Tablet,Delayed Release (Dr/Ec) 40 mg PO DAILY RF: 0 food supplemt, lactose-reduced Liquid 1 ea PO TID RF: 0 enoxaparin 40 mg/0.4 mL Syringe 40 mg SUBCUT DAILY RF: 0 Cerovite Jr 18 mg iron- 10 mcg Tablet,Chewable 1 tab PO DAILY RF: 0 Zosyn in dextrose (iso-osm) 3.375 gram/50 mL piggyback 3.375 g IV Q8H 49 Days RF: 0 fentanyl 75 mcg/hr Patch 72 Hour 75 mcg transdermal Q3D 210 Days RF: 0 Discontinued oxycodone-acetaminophen [Endocet] 7.5-325 mg Tablet 1 tab PO Q6H PRN (Reason: breakthrough pain) 49 Days RF: 0 Discharge Orders: Discharge Order (Routine); Ordered 02/24/21 Ordered By: Zeyad Bowie Admission Data Admit Date/Time: 02/22/21 16:41 Attending Provider: Zeyad Bowie Admit Provider: Sha Andrade Primary Care Provider: Klaudia CEBALLOS Other Providers: Sha Andrade Other Interventions: Discharge Summary Assessment (RN) Last Done: 02/24/21 11:14 Coding Level of Care Code D/C Day Management >30 mins Diagnoses Intractable abdominal pain R10.9 Intra-abdominal fluid collection R18.8 Sepsis A41.9; R65.20 Sepsis acute organ dysfunction status: with acute organ dysfunction Sepsis type: sepsis due to unspecified organism Severe sepsis acute organ dysfunction type: unspecified Severe sepsis shock status: unspecified Phlegmon L02.91 Pancreatitis K85.90 Bladder cancer C67.9 Thrombocytosis D47.3 Hypercalcemia E83.52 H/O total cystectomy Z90.6 Nephrostomy status Z93.6 Ileostomy status Z93.2 Surgically created abdominal mucous fistula Z93.4 History of nephrectomy Z90.5 Severe protein-calorie malnutrition E43 Hydronephrosis, right N13.30 Palliative care patient Z51.5
--- NOTE | 2021-02-25 14:52 | Pharmacy Report ---
ED Pharmacist Culture FollowUP - Culture Follow Up Note Date of Service: February 25, 2021 Notes:: Urine cx taken from indwelling da silva is growing >100,000CFU/mL pseudomonas aeruginosa (final result). Patient had been admitted to [facility] and did receive IV ABX in the form of Zosyn and Daptomycin. He was discharged back to [facility], with plans to possibly transition to comfort measures only. The patient was to continue Zosyn on discharge. This organism is resistant to Zosyn. I did contact Dr Bowie who provided pt's discharge plan / instructions. He requested I contact [facility] and [facility] and faxed the cx to [phone] per their request. I did receive receipt of successful fax transmission.
== END 2021-02-24 17:03 | DRG 871 ==
LOC: ED 11:43 → 3E 16:41 → SUATTDRO 16:41 → 3E 17:37